=== PATIENT | male | born 1990 | race Caucasian/White ===

== ENCOUNTER 2020-04-22 16:57 | Emergency (ER) | payer BC, OTHER, SELFPAY ==
[2020-04-22 16:58] VITALS: BP 135/74; PULSE 111; RESP 22; TEMP 36.6; O2SAT 98; BMI 33.4
--- NOTE | 2020-04-22 17:17 | CT_ITS ---
PROCEDURE: CT ABDOMEN PELVIS WO CON CLINICAL INDICATION: L flank pain Left flank pain with nausea vomiting the COMPARISON: CT ABDPELW/O CT ABD PELVIS W/O CONTRAST from 09/23/2015 TECHNIQUE: Axial images obtained with sagittal and coronal reformats. All CT scans at the facility use one or more dose reduction, viz: automated exposure control, ma/kV adjustment per patient size (including targeted exams where dose is matched to indication, i.e. head), or iterative reconstruction technique. FINDINGS: LOWER THORAX: No acute finding ABDOMEN & PELVIS: The liver, spleen, adrenal glands, and pancreas have an unremarkable appearance. There are numerous small bilateral renal calculi more extensive on the left compared to the right. There is a 6 mm stone in the left ureteropelvic junction with mild left-sided hydronephrosis. No distal ureteral calculi are evident. Suspect mild left-sided medullary nephrocalcinosis. Scattered small nodes are present in the mesenteries and right lower quadrant. Unremarkable appearing appendix. No intestinal obstruction or free air. No evidence of diverticulitis. Tiny umbilical hernia containing fat. Sclerotic changes are present involving the femoral heads on both sides consistent with avascular necrosis which has developed since 09/23/2015. No cortical collapse IMPRESSION: 1. 6 mm stone in the left UPJ with mild left-sided hydronephrosis. 2. Bilateral nephrolithiasis. 3. Avascular necrosis of the femoral heads. Dictated by: David Negron MD 04/23/2020 08:33 David Negron MD in [place] 04/23/2020 08:33
[2020-04-22 17:28] VITALS: BP 119/59; PULSE 89; RESP 16; O2SAT 98
[2020-04-22 17:29] LABS: Microscopic, Urine URINE MICROSCOPIC (MICROSCOPIC)
[2020-04-22 17:30] LABS: Appearance,Urine CLOUDY (Clear); Blood, Urine 3+ (Negative); Color,Urine DK YELLOW (Yellow); Glucose,Urine (UA) Negative (Negative); Ketones,Urine Negative (Negative); Leukocyte Esterase,Urine Negative (Negative); Nitrate,Urine POSITIVE (Negative); PH,Urine 5.5 (5.0-8.5); Protein,Urine 2+ (Negative); Specific Gravity, Urine >= 1.030 (1.005-1.030); Urobilinogen,Urine 0.2 EU/dl (0.2)
--- NOTE | 2020-04-22 17:30 | PC.NURSE ---
pt going to CT
[2020-04-22 17:31] LABS: Alanine Aminotransferase 59 U/L (12-78); Albumin Level 4.8 g/dl (3.5-5.0); Albumin/Globulin Ratio 1.7 (1.1-1.8); Alkaline Phosphatase 95 U/L (38-126); Anion Gap 10.6 mEq/L (5-15); Aspartate Amino Transferase 44 U/L (17-59); Bilirubin,Total 0.7 mg/dl (0.2-1.3); Blood Urea Nitrogen 10 mg/dl (9-20); Carbon Dioxide 29 mmol/L (22.0-30.0); Chloride 105 mmol/L (98-107); Creatinine Clearance Estimated 140 mL/min (50-200); Estimated Glomerular Filt Rate 79 ml/min (>60); GFR (African American) 96 ML/MIN (>60); Globulin 2.9 g/dL (1.3-3.2); Glucose 128 mg/dl (74-100); Potassium 4.6 mmoL/L (3.5-5.1); Sodium 140 mmol/L (136-145); Total Protein,Serum 7.7 g/dl (6.3-8.2)
[2020-04-22 17:41] LABS: Bilirubin,Urine Negative (Negative)
[2020-04-22 17:51] LABS: Bacteria,Urine 2+ /lpf; Squamous Epithelial Cell,Urine Occasional #/hpf (0-5)
[2020-04-22 17:54] LABS: Basophils # 0.1 K/mm3 (0-0.2); Basophils % 0.6 % (0.1-2.0); Eosinophils # 0.3 K/mm3 (0.0-0.4); Eosinophils % 3.9 % (0.1-12.0); Hematocrit 48.1 % (42.0-52.0); Hemoglobin 15.7 g/dL (14.1-18.0); Lymphocytes # 2.7 K/mm3 (0.7-4.5); Lymphocytes % 32.4 % (10-50); Mean Corpuscular HGB Conc 32.7 g/dL (31.8-35.4); Mean Corpuscular Hemoglobin 29.7 pg (27.0-31.2); Mean Corpuscular Volume 90.7 fl (80-94); Mean Platelet Volume 8.1 fl (7.4-10.4); Monocytes # 0.5 K/mm3 (0.1-1.0); Monocytes % 6.2 % (1.7-9.3); Neutrophils # 4.7 K/mm3 (1.8-7.8); Neutrophils % 56.9 % (37.0-80.0); Platelet Count 234 K/mm3 (142-424); Red Cell Distribution Width 12.6 % (11.5-17.5); White Blood Count 8.3 K/mm3 (4.8-10.8)
--- NOTE | 2020-04-22 17:58 | HMH.EDGENADL ---
ED Disposition Clinical Impression: Obstructive uropathy UTI (urinary tract infection) Qualifiers: Urinary tract infection type: acute pyelonephritis Qualified Code(s): N10 - Acute pyelonephritis Disposition: Xfer Short-Term Hosp Condition on Discharge: Good Referrals: Nery Sams APRN [Primary Care Provider] - Forms: Transfer Record - ED Time of Disposition: 18:57 - Critical Care Critical Care Time: No Attestation: On 04/22/20, the high probability of a clinically significant, sudden or life threatening deterioration of the following system(s) required my full and direct attention, intervention and personal management. The time I documented below is in addition to time spent performing reported procedures but includes the following listed in this critical care notation. Medical Decision Making - Medical Records Medical records reviewed: Yes: I reviewed the patient's medical records. - Noel Inquiry Pt receiving controlled substance: No Noel was queried for this patient: Yes (No prescriptions on record) Vital Signs: 04/22/20 16:58 04/22/20 17:28 Temperature 98 F Temperature Source Oral Pulse Rate [Radial] 111 H 89 Respiratory Rate 22 16 Blood Pressure [Right Arm] 135/74 119/59 L Blood Pressure Mean [Right Arm] 94 79 Blood Pressure Position [Right Arm] Sitting Sitting 02 Sat by Pulse Oximetry 98 98 Oxygen Delivery Method Room Air Room Air - Lab Data Lab results reviewed: Yes: I reviewed the patient's lab results. Lab Results 04/22/20 17:05: WBC 8.3, RBC 5.30, Hgb 15.7, Hct 48.1, MCV 90.7, MCH 29.7, MCHC 32.7, RDW 12.6, Plt Count 234, MPV 8.1, Neut % (Auto) 56.9, Lymph % (Auto) 32.4, [place] % (Auto) 6.2, Eos % (Auto) 3.9, Baso % (Auto) 0.6, Neut # (Auto) 4.7, Lymph # (Auto) 2.7, Dolores # (Auto) 0.5, Eos # (Auto) 0.3, Baso # (Auto) 0.1 04/22/20 17:05: Sodium 140, Potassium 4.6, Chloride 105, Carbon Dioxide 29, Anion Gap 10.6, BUN 10, Creatinine 1.10, Estimated Creat Clear 140, Estimated GFR 79, Est GFR ( Amer) 96, Glucose 128 H, Calcium 10.0, Total Bilirubin 0.7, AST 44, ALT 59, Alkaline Phosphatase 95, Total Protein 7.7, Albumin 4.8, Globulin 2.9, Albumin/Globulin Ratio 1.7 04/22/20 17:20: Urine Color Dk yellow, Urine Appearance Cloudy, Urine pH 5.5, Ur Specific [place] >= 1.030, Urine Protein 2+, Urine Glucose (UA) Negative, Urine Ketones Negative, Urine Blood 3+, Urine Nitrate Positive, Urine Bilirubin Negative, Urine Urobilinogen 0.2, Ur Leukocyte Esterase Negative, Urine RBC 10-20, Urine WBC 3-5, Ur Squamous Epith Cells Occasional, Urine Bacteria 2+ Result diagrams: 04/22/20 17:05 04/22/20 17:05 Orders (Tests/Meds): ED MEDICATIONS Generic Name Dose Route Start Last Admin Trade Name Freq PRN Reason Stop Dose Admin Sodium Chloride 1,000 mls @ 999 mls/hr 04/22/20 17:15 04/22/20 17:17 Sod Chlor 0.9% 1000ml Bag IV 04/22/20 18:15 999 mls/hr .[id number] CARMELA Administration Tamsulosin HCl 0.4 mg 04/22/20 21:00 04/22/20 18:01 Tamsulosin 0.4mg Capsule PO 05/22/20 20:59 0.4 mg HS CARMELA Administration Discontinued Medications Generic Name Dose Route Start Last Admin Trade Name Freq PRN Reason Stop Dose Admin Hydromorphone HCl 1 mg 04/22/20 18:00 04/22/20 18:02 Hydromorphone 2mg/Ml Syringe IV 04/22/20 18:01 1 mg ONCE ONE Administration Ceftriaxone Sodium 1 gm/ 50 mls @ 100 mls/hr 04/22/20 17:59 04/22/20 18:01 Sodium Chloride IV 04/22/20 18:28 100 mls/hr ONCE ONE Administration Protocol Ketorolac Tromethamine 30 mg 04/22/20 17:15 04/22/20 17:17 Ketorolac 30mg/Ml Vial IV 04/22/20 17:16 30 mg ONCE ONE Administration Morphine Sulfate 4 mg 04/22/20 17:44 04/22/20 18:01 Morphine 4mg/Ml Syringe IV 04/22/20 17:45 Not Given ONCE ONE Ondansetron HCl 4 mg 04/22/20 17:15 04/22/20 17:17 Ondansetron 4mg/2ml Vial IV 04/22/20 17:16 4 mg ONCE ONE Administration ORDERS Category Date Time Status CT abdomen pelvis wo
--- NOTE | 2020-04-22 18:20 | PC.NURSE ---
Calling [facility] for transport
[2020-04-22 18:24] LABS: Adenovirus,PCR Not Detected (NotDetected); Bordetella Pertussis Not Detected (NotDetected); Chlamydophila Pneumoniae, PCR Not Detected (NotDetected); Coronavirus 19, PCR Not Detected (NotDetected); Coronavirus 229E Not Detected (NotDetected); Coronavirus NL63 Not Detected (NotDetected); Coronavirus OC43 Not Detected (NotDetected); Coronovirus HKU1,PCR Not Detected (NotDetected); Human Metapneumovirus Not Detected (NotDetected); Influenza A, PCR Not Detected (NotDetected); Influenza AH1, 2009 Not Detected (NotDetected); Influenza AH1, PCR Not Detected (NotDetected); Influenza AH3,PCR Not Detected (NotDetected); Influenza B, PCR Not Detected (NotDetected); Mycoplasma Pneumoniae, PCR Not Detected (NotDetected); Parainfluenza 1, PCR Not Detected (NotDetected); Parainfluenza 2, PCR Not Detected (NotDetected); Parainfluenza 3, PCR Not Detected (NotDetected); Parainfluenza 4, PCR Not Detected (NotDetected); Respiratory Syncytial Virus Not Detected (NotDetected); Rhinovirus/Enterovirus Not Detected (NotDetected)
--- NOTE | 2020-04-22 18:25 | PC.NURSE ---
Spoke with Patient logistics at [facility]. They are paging radiology and then will page out for a admit bed. Fax number is [phone].
--- NOTE | 2020-04-22 18:30 | PC.NURSE ---
Facesheet faxed to [facility].
--- NOTE | 2020-04-22 18:36 | PC.NURSE ---
Dr Barba speaking with urology at [facility] at this time.
--- NOTE | 2020-04-22 19:05 | PC.NURSE ---
bed assignment received, [id number].
[2020-04-22 19:10] VITALS: BP 119/59; PULSE 89; RESP 18; TEMP 36.7; O2SAT 98
== END 2020-04-22 19:15 | disposition short-term general hospital (02) ==
PROVIDERS: Emergency Provider Family Medicine; PCP Nurse Practitioner Family
DX: N13.9 Obstructive and reflux uropathy, unspecified (principal); N10 Acute pyelonephritis; K21.9 Gastro-esophageal reflux disease without esophagitis; F17.210 Nicotine dependence, cigarettes, uncomplicated; Z87.442 Personal history of urinary calculi
CPT/HCPCS: 74176; 80053; 81001; 85025; 87086; 87581; 87633; 87798; 96365; 96375; 99284; J2405

== ENCOUNTER 2020-10-15 20:44 | Emergency (ER) | payer BC, OTHER, SELFPAY ==
[2020-10-15 21:05] VITALS: BP 155/84; PULSE 84; RESP 18; TEMP 36.9; O2SAT 99; BMI 31.9
--- NOTE | 2020-10-15 21:38 | HMH.EDUTC ---
[facility] [place] Clinical Impression: Exposure to COVID-19 virus Disposition: Home, Self-Care Condition on Discharge: Good Instructions: DI for COVID-19 (Suspected or Confirmed ), Coronavirus Disease 2019, Preventing the Spread of Coronavirus Discharge Instructions Additional Instructions: *Monitor Temp, Over the counter Motrin or Tylenol as directed/as needed Tylenol every 4 hours and Motrin every 6 hours (as long as your family doctor has told you that you can take it) for fever or pain. and straight to ER if unable to lower temp less than 101.0 after medication given *Warm salt water gargles may help to soothe the throat *Throat Lozenges *Warm fluids like tea with honey may help to soothe the throat *Sleep elevated *Humidifier/Vaporizer Follow up IMMEDIATELY for new or worsening symptoms or no Noticeable improvement over the next 48-72 hours. 911 for difficulty breathing or swallowing You were tested for today for COVID19 your test result should be back in the next 24-48 hours, you may call to the [facility] to see if your test results are back in the next 48 hours [phone] [facility] hours are 9am-9pm You was given a handout with instructions for Self Quarantine and Self isolation for while you wait on test results and what to do if they are positive If you are positive the Health Dept will be contacting you also Make sure to take your Vitamins Vit. C Vit D and Zinc if you can take them Referrals: Nery Sams APRN [Primary Care Provider] - As needed Forms: Work/School Release Medical Decision Making - Noel Inquiry Pt receiving controlled substance: No Noel was queried for this patient: No Vital Signs: 10/15/20 21:05 Temperature 98.5 F Temperature Source Oral Pulse Rate [Right Brachial] 84 Respiratory Rate 18 Blood Pressure [Right Arm] 155/84 H Blood Pressure Mean [Right Arm] 107 Blood Pressure Source [Right Arm] Automatic Cuff Blood Pressure Position [Right Arm] Sitting 02 Sat by Pulse Oximetry 99 Oxygen Delivery Method Room Air Orders (Tests/Meds): ORDERS Category Date Time Status Covid-19 Nasal PCR ([facility]) Routine Lab 10/15/20 21:05 Received [facility] [place] HPI - General Stated complaint: covid test Time Seen by Provider: 10/15/20 21:38 Mode of Arrival: Ambulatory Source of Information: Patient Limitations: No Limitations Description of Symptoms (Recalled from Triage Doc. by RN): COVID TEST D/T EXPOSURE. C/O SORE THROAT AND NASAL DRAINAGE HEENT Symptoms (Recalled from RN notes): Yes Resp Symptoms (Recalled from RN notes): No Skin Symptoms (Recalled from RN notes): No MS Symptoms (Recalled from RN notes): No Functional Status (Recalled from RN notes): WNL - History of Present Illness Provider Complaint: Patient state that he was around co worker last week that tested positive for COVID States that he has had a little nasal drainage and scratchy throat and wanted to get tested for COVID Denies fever, or any other symptoms - Related Data Home Medications Medication Instructions Recorded Confirmed No Known Home Medications 05/31/18 06/02/20 Allergies Allergy/AdvReac Type Severity Reaction Status Date / Time amoxicillin [AMOXICILLIN] Allergy Unknown Verified 06/02/20 11:36 - Worker's Comp Is this a Worker's Comp case?: No [facility] History - Hepatitis A Screen Drug use history?: No High risk sexual behaviors?: No History of sexually transmitted infection?: No Currently employed?: No Childcare worker?: No Do you have indoor plumbing?: Yes Do you have electricity?: Yes Attestation statement:: This patient has been screened for Hepatitis A risk factors. I have reviewed the patient's past medical history: Yes 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: Reports:: Kidney Stones Denies:: Diabetes Mellitus Type 1, Diabetes Mellitus Type 2, Internal Pacemaker Other Surgeries: Yes: No Previous Surgery. No: Pacemaker Amputation: No Fractures: No - Social History Smoking Status: Current every day smoker
[2020-10-15 21:45] VITALS: BP 155/84; PULSE 84; RESP 18; TEMP 36.9; O2SAT 99
--- NOTE | 2020-10-16 14:10 | PC.NURSE ---
PT NOTIFIED OF POSITIVE COVID RESULTS
== END 2020-10-15 21:51 | disposition home or self-care (01) ==
PROVIDERS: Emergency Provider Nurse Practitioner; PCP Nurse Practitioner Family
DX: Z20.822 Contact with and (suspected) exposure to COVID-19 (principal); J02.9 Acute pharyngitis, unspecified
CPT/HCPCS: 99202; G0463; U0003

== ENCOUNTER 2021-06-18 08:45 | Emergency (ER) | payer BC, SELFPAY ==
[2021-06-18 08:45] VITALS: BP 128/78; PULSE 88; RESP 22; TEMP 36.6; O2SAT 98; BMI 33.4
--- NOTE | 2021-06-18 08:57 | HMH.EDGENADL ---
ED Disposition Clinical Impression: Ureteral calculus Disposition: Home, Self-Care Condition on Discharge: Good Instructions: DI for Kidney Stones Additional Instructions: Flomax as prescribed. Percocet as needed for pain. Zofran as needed for nausea. Additional instructions for KIDNEY STONE (URETERAL CALCULUS): See Dr. Matt as soon as possible for further evaluation. Drink plenty of fluids. Strain your urine and save any stones you catch. Return immediately if you develop a fever or have uncontrollable vomiting or uncontrollable pain. What is known about DIET and KIDNEY STONES: Most kidney stones contain calcium oxalate. The logical assumption would be that you should avoid calcium and oxalate in your diet. Contrary to what you would think, this is not necessarily the case. What is actually recommended for kidney stone prevention is a diet that contains MODERATELY HIGH AMOUNTS OF CALCIUM and is LOW IN SODIUM with PLENTY OF FLUIDS. Avoiding oxalate containing foods is recommended by some experts, but is controversial. Following the DASH (Dietary Approaches to Stop Hypertension) has been shown to significantly reduce the incidence of kidney stones. The DASH diet encourages you to reduce the sodium in your diet and eat a variety of foods rich in nutrients that help lower blood pressure, such as potassium, calcium and magnesium. Recommendations: Fluids: It is widely agreed upon that you need to drink plenty of fluids. A minimum would be 8-10 glasses (8 oz each) of fluid per day. Some experts recommend as much as 14-15 glasses a day. Sodium: The way to lower calcium in your urine is to lower your sodium intake. Try not to get more than 1500 mg a day. Calcium: Dietary calcium prevents absorption of oxalate. Make sure you get about 1000 to 1200 mg a day. You can get enough calcium from dairy products without taking supplements. Calcium should be ingested with meals, not in between meals. You need to get your calcium at mealtime to decrease the absorption of oxalate from other foods. Oxalate: Although some experts recommend avoiding oxalate in your diet, there have been no studies that prove this works. Eating more calcium will reduce oxalate absorption, and is probably all that is needed to reduce oxalate in your urine. Oxalate containing foods are generally good for you in all other respects - leafy greens, nuts, etc... So avoiding them unnecessarily might not be the best thing for your health. If you want to do something to avoid oxalate, avoid spinach and rhubarb - those are extremely high in oxalate (or at least eat a high calcium meal with these). ALSO: If you retrieve your stone by straining your urine, take it to your physician for stone analysis, which can help tailor your dietary recommendations. For further reading, check out the [facility] web page about the kidney stone diet: http://kidneystones.[employer]/cba-rkgvmj-yoeml-diet/ Additional instructions for CONTROLLED SUBSTANCES: You have been prescribed a medication that is a controlled substance. Controlled substances include pain medications known as opiates and sedative nerve medications known as benzodiazepines. Tramadol, fioricet, and gabapentin are also controlled substances. Some common opiates include: Codeine (such as Tylenol #3) Hydrocodone (Vicodin, Lortab, Lorcet, Williams) Oxycodone (Percocet, Percodan, Oxycodone, Oxy IR) Some common benzodiazepines include: Diazepam (Valium) Lorazepam (Ativan) Alprazolam (Xanax) Clonazepam (Klonopin) Oxazepam (Serax) All of these controlled substances are highly addictive and frequently abused. Misuse can and frequently does lead to addiction as well as overdose and . Medication should be stored in a locked cabinet or other secure storage unit. Do not store the medication in a motor vehicle. Short term supplies, 3 days or less, are prescribed be
--- NOTE | 2021-06-18 09:05 | CT_ITS ---
PROCEDURE INFORMATION: Exam: CT Abdomen And Pelvis Without Contrast Exam date and time: 06/18/2021 9:14 AM Age: 30 years old Clinical indication: Abdominal pain; Flank; Right lower quadrant (rlq); Additional info: R/O stone- right sided lower flank pain TECHNIQUE: Imaging protocol: Computed tomography of the abdomen and pelvis without contrast. Radiation optimization: All CT scans at this facility use at least one of these dose optimization techniques: automated exposure control; mA and/or kV adjustment per patient size (includes targeted exams where dose is matched to clinical indication); or iterative reconstruction. COMPARISON: CT ABDOMEN PELVIS WO CON 04/22/2020 5:32 PM FINDINGS: Liver: Normal. No mass. Gallbladder and bile ducts: Normal. No calcified stones. No ductal dilation. Pancreas: Normal. No ductal dilation. Spleen: Normal. No splenomegaly. Adrenal glands: Normal. No mass. Kidneys and ureters: Several non-obstructing left intrarenal calculi. Mild right perinephric hydroureter secondary to a 3 mm calculus located approximately 1 cm proximal to the right ureterovesical junction. Stomach and bowel: Unremarkable. No obstruction. No mucosal thickening. Appendix: The appendix is seen and is normal in appearance. Intraperitoneal space: Unremarkable. No free air. No significant fluid collection. Arteries: Unremarkable. No abdominal aortic aneurysm. Lymph nodes: Few calcified mediastinal nodes compatible with healed granulomatous disease. Several subcentimeter mesenteric lymph nodes. Urinary bladder: Unremarkable as visualized. Reproductive: Unremarkable as visualized. Bones/joints: Unremarkable. No acute fracture. Soft tissues: Unremarkable. IMPRESSION: 1. Several non-obstructing left intrarenal calculi. Mild right perinephric hydroureter secondary to a 3 mm calculus located approximately 1 cm proximal to the right ureterovesical junction. 2. Remainder of findings as described above.
[2021-06-18 09:15] LABS: Basophils # 0.1 K/mm3 (0-0.2); Basophils % 0.7 % (0.1-2.0); Eosinophils # 0.3 K/mm3 (0.0-0.4); Eosinophils % 4.4 % (0.1-12.0); Hematocrit 47.7 % (42.0-52.0); Hemoglobin 16.1 g/dL (14.1-18.0); Lymphocytes # 2.9 K/mm3 (0.7-4.5); Lymphocytes % 38.3 % (10-50); Mean Corpuscular HGB Conc 33.7 g/dL (31.8-35.4); Mean Corpuscular Hemoglobin 29.9 pg (27.0-31.2); Mean Corpuscular Volume 88.8 fl (80-94); Mean Platelet Volume 7.9 fl (7.4-10.4); Monocytes # 0.6 K/mm3 (0.1-1.0); Monocytes % 8.1 % (1.7-9.3); Neutrophils # 3.7 K/mm3 (1.8-7.8); Neutrophils % 48.4 % (37.0-80.0); Platelet Count 258 K/mm3 (142-424); Red Blood Count 5.37 M/mm3 (4.60-6.20); Red Cell Distribution Width 12.2 % (11.5-17.5); White Blood Count 7.5 K/mm3 (4.8-10.8)
[2021-06-18 09:17] LABS: Chloride 106 mmol/L (98-107); Potassium 3.7 mmoL/L (3.5-5.1); Sodium 140 mmol/L (136-145)
[2021-06-18 09:19] LABS: Alanine Aminotransferase 73 U/L (12-78); Aspartate Amino Transferase 49 U/L (17-59); Blood Urea Nitrogen 12 mg/dl (9-20); Creatinine Clearance Estimated 139 mL/min (50-200); Estimated Glomerular Filt Rate 79 ml/min (>60); GFR (African American) 95 ML/MIN (>60)
[2021-06-18 09:20] LABS: Albumin Level 4.4 g/dl (3.5-5.0); Albumin/Globulin Ratio 1.7 (1.1-1.8); Alkaline Phosphatase 95 U/L (38-126); Anion Gap 8.7 mEq/L (5-15); Bilirubin,Total 0.6 mg/dl (0.2-1.3); Calcium 9.2 mg/dl (8.4-10.2); Carbon Dioxide 29 mmol/L (22.0-30.0); Globulin 2.6 g/dL (1.3-3.2); Glucose 134 mg/dl (74-100)
[2021-06-18 09:34] VITALS: BP 120/75; PULSE 60; RESP 16; O2SAT 98
[2021-06-18 10:10] LABS: Microscopic, Urine URINE MICROSCOPIC (MICROSCOPIC)
[2021-06-18 10:13] LABS: Appearance,Urine CLEAR (Clear); Blood, Urine 3+ (Negative); Color,Urine AMBER (Yellow); Glucose,Urine (UA) Negative (Negative); Ketones,Urine Negative (Negative); Leukocyte Esterase,Urine Negative (Negative); Nitrate,Urine Negative (Negative); PH,Urine 6.5 (5.0-8.5); Protein,Urine 2+ (Negative); Specific Gravity, Urine >= 1.030 (1.005-1.030); Urobilinogen,Urine 0.2 EU/dl (0.2)
--- NOTE | 2021-06-18 10:19 | PC.NURSE ---
UPDATED ON PLAN OF CARE
[2021-06-18 10:22] LABS: Bilirubin,Urine 1+ (Negative)
[2021-06-18 10:51] LABS: Bacteria,Urine 1+ /lpf; RBC,Urine 20-50 #/hpf (0-3); Squamous Epithelial Cell,Urine Occasional #/hpf (0-5); WBC,Urine Occasional #/hpf (0-3)
[2021-06-18 11:01] VITALS: BP 116/73; PULSE 69; RESP 16; TEMP 36.6; O2SAT 98
== END 2021-06-18 11:02 | disposition home or self-care (01) ==
PROVIDERS: Emergency Provider Emergency Medicine; PCP Nurse Practitioner Family
DX: N20.1 Calculus of ureter (principal); F17.210 Nicotine dependence, cigarettes, uncomplicated
CPT/HCPCS: 74176; 80053; 81001; 85025; 96361; 96374; 96375; 96376; 99284; J2405

== ENCOUNTER 2021-06-20 06:42 | Emergency (ER) | payer BC, SELFPAY ==
[2021-06-20 06:44] VITALS: BP 145/88; PULSE 92; RESP 20; TEMP 36.9; O2SAT 98; BMI 31.4
[2021-06-20 06:48] VITALS: BP 143/79; PULSE 76; O2SAT 99
[2021-06-20 06:54] VITALS: BMI 31.5
--- NOTE | 2021-06-20 06:55 | CT_ITS ---
PROCEDURE INFORMATION: Exam: CT Abdomen And Pelvis Without Contrast Exam date and time: 06/20/2021 7:34 AM Age: 30 years old Clinical indication: Abdominal pain; Flank; Right; Additional info: Abdominal pain, known right kidney stone. TECHNIQUE: Imaging protocol: Computed tomography of the abdomen and pelvis without contrast. Radiation optimization: All CT scans at this facility use at least one of these dose optimization techniques: automated exposure control; mA and/or kV adjustment per patient size (includes targeted exams where dose is matched to clinical indication); or iterative reconstruction. COMPARISON: CT ABDOMEN PELVIS WO CON 06/18/2021 9:14 AM FINDINGS: Liver: Normal. No mass. Gallbladder and bile ducts: Normal. No calcified stones. No ductal dilation. Pancreas: Normal. No ductal dilation. Spleen: Calcified splenic granulomata. Adrenal glands: Normal. No mass. Kidneys and ureters: Few nonobstructing left intrarenal calculi. Mild right perinephric stranding and hydronephrosis secondary to a 2.5 mm calculus located at the right ureterovesical junction. Stomach and bowel: Unremarkable. No obstruction. No mucosal thickening. Appendix: The appendix is seen and is normal in appearance. Intraperitoneal space: Unremarkable. No free air. No significant fluid collection. Arteries: Unremarkable. No abdominal aortic aneurysm. Lymph nodes: Unremarkable. No enlarged lymph nodes. Urinary bladder: Unremarkable as visualized. Reproductive: Unremarkable as visualized. Bones/joints: Unremarkable. No acute fracture. Soft tissues: Unremarkable. IMPRESSION: Few nonobstructing left intrarenal calculi. Mild right perinephric stranding and hydronephrosis secondary to a 2.5 mm calculus located at the right ureterovesical junction.
--- NOTE | 2021-06-20 08:04 | HMH.EDABDPAI ---
ED Disposition Clinical Impression: Right ureteral stone Disposition: Home, Self-Care Condition on Discharge: Good Instructions: Kidney Stones -- Adult Additional Instructions: follow up with urology Referrals: Hossein Matt MD [Staff Physician] - - Critical Care Critical Care Time: No Attestation: On 06/20/21, the high probability of a clinically significant, sudden or life threatening deterioration of the following system(s) required my full and direct attention, intervention and personal management. The time I documented below is in addition to time spent performing reported procedures but includes the following listed in this critical care notation. Medical Decision Making - Medical Records Medical records reviewed: Yes: I reviewed the patient's medical records. - Noel Inquiry Pt receiving controlled substance: No Vital Signs: 06/20/21 06:44 06/20/21 06:48 06/20/21 09:14 Temperature 98.4 F Temperature Source Oral Pulse Rate 76 90 Pulse Rate [Right] 92 H Respiratory Rate 20 Blood Pressure 143/79 H 137/83 Blood Pressure [Right Arm] 145/88 H Blood Pressure Mean 102 99 Blood Pressure Mean [Right Arm] 107 02 Sat by Pulse Oximetry 98 99 99 Oxygen Delivery Method Room Air 06/20/21 10:38 Temperature 98.3 F Temperature Source Oral Pulse Rate 92 H Pulse Rate [Right] Respiratory Rate 20 Blood Pressure 128/74 Blood Pressure [Right Arm] Blood Pressure Mean Blood Pressure Mean [Right Arm] 02 Sat by Pulse Oximetry Oxygen Delivery Method Room Air - Lab Data Lab Results 06/20/21 07:18: Urine Color Yellow, Urine Appearance Clear, Urine pH 5.5, Ur Specific [place] >= 1.030, Urine Protein Negative, Urine Glucose (UA) Negative, Urine Ketones Negative, Urine Blood 3+, Urine Nitrate Negative, Urine Bilirubin Negative, Urine Urobilinogen 0.2, Ur Leukocyte Esterase Negative, Urine RBC 10-20, Urine WBC None, Ur Squamous Epith Cells Occasional, Urine Bacteria Trace 06/20/21 07:18: WBC 7.4, RBC 5.16, Hgb 15.9, Hct 47.4, MCV 91.9, MCH 30.7, MCHC 33.5, RDW 12.8, Plt Count 216, MPV 8.7, Neut % (Auto) 63.0, Lymph % (Auto) 26.4, [place] % (Auto) 7.0, Eos % (Auto) 1.7, Baso % (Auto) 1.8, Neut # (Auto) 4.6, Lymph # (Auto) 2.0, Harris # (Auto) 0.5, Eos # (Auto) 0.1, Baso # (Auto) 0.1, ESR 6 06/20/21 07:18: Sodium 141, Potassium 3.8, Chloride 106, Carbon Dioxide 28, Anion Gap 10.8, BUN 14, Creatinine 1.20, Estimated Creat Clear 127, Estimated GFR 71, Est GFR ( Amer) 86, Glucose 113 H, Calcium 9.7, Total Bilirubin 0.8, AST 42, ALT 61, Alkaline Phosphatase 92, C-Reactive Protein 1.1, Total Protein 7.1, Albumin 4.4, Globulin 2.7, Albumin/Globulin Ratio 1.6, Amylase 69, Lipase 96, Procalcitonin 0.044 Result diagrams: 06/20/21 07:18 06/20/21 07:18 Orders (Tests/Meds): ED MEDICATIONS Discontinued Medications Generic Name Dose Route Start Last Admin Trade Name Landen PRN Reason Stop Dose Admin Hydromorphone HCl 1 mg 06/20/21 07:19 06/20/21 07:19 Hydromorphone 4 Mg/Ml Syringe IV 06/20/21 07:20 1 mg ONCE ONE Administration Lactated Ringer's 500 mls @ 999 mls/hr 06/20/21 07:00 06/20/21 07:00 Lactated Ringer's 1000 Ml Bag IV 06/20/21 07:30 999 mls/hr .Q31M CARMELA Administration Ketorolac Tromethamine 30 mg 06/20/21 06:56 06/20/21 07:00 Ketorolac 30mg/Ml Vial IV 06/20/21 06:57 30 mg ONCE ONE Administration Metoclopramide HCl 10 mg 06/20/21 08:09 06/20/21 08:20 Metoclopramide Hcl 10mg/2ml Vial IVP 06/20/21 08:10 10 mg ONCE ONE Administration Morphine Sulfate 8 mg 06/20/21 08:55 06/20/21 08:58 Morphine 8mg/Ml Syringe IV 06/20/21 08:56 8 mg ONCE ONE Administration Ondansetron HCl 4 mg 06/20/21 06:56 06/20/21 07:00 Ondansetron 4mg/2ml Vial IV 06/20/21 06:57 4 mg ONCE ONE Administration Ondansetron HCl 4 mg 06/20/21 08:09 06/20/21 08:20 Ondansetron 4mg/2ml Vial IV 06/20/21 08:10 4 mg ONCE ONE Administration - Physici
[2021-06-20 08:21] LABS: Microscopic, Urine URINE MICROSCOPIC (MICROSCOPIC)
[2021-06-20 08:26] LABS: Appearance,Urine CLEAR (Clear); Bilirubin,Urine Negative (Negative); Blood, Urine 3+ (Negative); Color,Urine YELLOW (Yellow); Glucose,Urine (UA) Negative (Negative); Ketones,Urine Negative (Negative); Leukocyte Esterase,Urine Negative (Negative); Nitrate,Urine Negative (Negative); PH,Urine 5.5 (5.0-8.5); Protein,Urine Negative (Negative); Specific Gravity, Urine >= 1.030 (1.005-1.030); Urobilinogen,Urine 0.2 EU/dl (0.2)
[2021-06-20 08:27] LABS: Basophils # 0.1 K/mm3 (0-0.2); Basophils % 1.8 % (0.1-2.0); Chloride 106 mmol/L (98-107); Eosinophils # 0.1 K/mm3 (0.0-0.4); Eosinophils % 1.7 % (0.1-12.0); Hematocrit 47.4 % (42.0-52.0); Hemoglobin 15.9 g/dL (14.1-18.0); Lymphocytes % 26.4 % (10-50); Mean Corpuscular HGB Conc 33.5 g/dL (31.8-35.4); Mean Corpuscular Hemoglobin 30.7 pg (27.0-31.2); Mean Corpuscular Volume 91.9 fl (80-94); Mean Platelet Volume 8.7 fl (7.4-10.4); Monocytes # 0.5 K/mm3 (0.1-1.0); Neutrophils # 4.6 K/mm3 (1.8-7.8); Platelet Count 216 K/mm3 (142-424); Red Blood Count 5.16 M/mm3 (4.60-6.20); Red Cell Distribution Width 12.8 % (11.5-17.5); White Blood Count 7.4 K/mm3 (4.8-10.8)
[2021-06-20 08:28] LABS: Potassium 3.8 mmoL/L (3.5-5.1); Sodium 141 mmol/L (136-145)
[2021-06-20 08:30] LABS: Alanine Aminotransferase 61 U/L (12-78); Alkaline Phosphatase 92 U/L (38-126); Amylase 69 U/L (30-110); Anion Gap 10.8 mEq/L (5-15); Aspartate Amino Transferase 42 U/L (17-59); Bilirubin,Total 0.8 mg/dl (0.2-1.3); Blood Urea Nitrogen 14 mg/dl (9-20); Carbon Dioxide 28 mmol/L (22.0-30.0); Creatinine Clearance Estimated 127 mL/min (50-200); Estimated Glomerular Filt Rate 71 ml/min (>60); GFR (African American) 86 ML/MIN (>60)
[2021-06-20 08:31] LABS: Albumin Level 4.4 g/dl (3.5-5.0); Albumin/Globulin Ratio 1.6 (1.1-1.8); Calcium 9.7 mg/dl (8.4-10.2); Globulin 2.7 g/dL (1.3-3.2); Glucose 113 mg/dl (74-100); Lipase 96 U/L (23-300); Total Protein,Serum 7.1 g/dl (6.3-8.2)
[2021-06-20 08:36] LABS: C-Reactive Protein 1.1 mg/L (0-4)
[2021-06-20 08:44] LABS: Bacteria,Urine Trace /lpf; Squamous Epithelial Cell,Urine Occasional #/hpf (0-5)
[2021-06-20 08:51] LABS: Erythrocyte Sedimentation Rate 6 mm/hr (0-15)
[2021-06-20 09:08] LABS: Procalcitonin 0.044 ng/mL (0.0-2.0)
[2021-06-20 09:14] VITALS: BP 137/83; PULSE 90; O2SAT 99
[2021-06-20 10:38] VITALS: BP 128/74; PULSE 92; RESP 20; TEMP 36.8; O2SAT 97
== END 2021-06-20 10:38 | disposition home or self-care (01) ==
PROVIDERS: Emergency Provider Emergency Medicine; PCP Nurse Practitioner Family
DX: N20.1 Calculus of ureter (principal); F17.210 Nicotine dependence, cigarettes, uncomplicated; Z88.0 Allergy status to penicillin; Z88.1 Allergy status to other antibiotic agents; Z88.3 Allergy status to other anti-infective agents
CPT/HCPCS: 74176; 80053; 81001; 82150; 83690; 84145; 85025; 85651; 86140; 96374; 96375; 96376; 99285; J2405

== ENCOUNTER 2021-06-20 11:04 | Day surgery (SDC) | payer BC, SELFPAY ==
[2021-06-20] VITALS (12 sets, daily range): BP systolic 117–154; BP diastolic 63–82; PULSE 58–87; RESP 12–18; TEMP 36.2–43; O2SAT 92–99; BMI 33.4
--- NOTE | 2021-06-20 14:19 | HMH.ANESCL ---
[facility] Anesthesia Checklist - Patient Identification Patient Identification: Arm Band - Structural Data Admitted From: Home Planned Operative Procedure/s: Right Ureteroscopy with Stone Extraction Consent for Planned Operative Procedure(s) Verified: Yes Verified Documents: Surgical Consent, History and Physical - NPO Status Verified Time NPO: 00:00 - Additional verifications Anesthesia Reactions: No Hx Blood Transfusions: No Blood Transfusion Reaction: No - Airway Assessment C-Spine Mobility Assessed: Yes (mp2) TMJ Mobility Assessed: Yes Dentition: Good Dentition - Neurological Assessment Level of Consciousness: Awake, Alert - Anesthesia Plan Anesthesia Risk discussed: Yes Anesthesia Plan: Verified ASA Class: II Anesthesia Type: General [facility] History I have reviewed the patient's past medical history: Yes 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: Reports:: Kidney Stones Denies:: Cancer, Diabetes Mellitus Type 1, Diabetes Mellitus Type 2, Internal Pacemaker, MRSA, Seizures *Have you ever received a pneumonia vaccine?: No *Have you received a flu vaccine this season?: Yes Other 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: Denies: Blood Transfusion Reaction Anesthesia experience/problems:: nac Laterality Cases: Bilateral: Tonsillectomy Other Surgeries: Yes: Other. No: Pacemaker Amputation: No Fractures: No - *Social History Last grade of school completed: High school graduate Smoking Status: Current every day smoker Tobacco Type: cigarettes # Packs/Day (cigarettes): 1 Alcohol Intake: never Alcohol Intake Frequency:: holidays/special occasions only Substance Use Type: denies use *Occupational Status:: employed Housing: house Household Members: spouse *Travel in the last 8 weeks: None Family Hx:: No significant family history
--- NOTE | 2021-06-20 16:52 | XR_ITS ---
PROCEDURE INFORMATION: Exam: XR Abdomen Exam date and time: 06/20/2021 4:45 PM Age: 30 years old Clinical indication: Vomiting; Patient HX: This was an or case, stone extraction, fluoro time 0:58 TECHNIQUE: Imaging protocol: XR of the abdomen. Views: Frontal supine view of the abdomen. 1 View. COMPARISON: CT ABDOMEN PELVIS WO CON 06/20/2021 7:34 AM FINDINGS: Single image shows selection the right ureter with a guidewire. Fluoroscopy time is 0.58 minutes. IMPRESSION: Fluoroscopy time is 0.58 minutes.
--- NOTE | 2021-06-20 16:55 | P.PN_ITS ---
[facility] Anesthesia Record Part I Intake, IV Amount: 1,200 Estimated blood loss (mL): 0 Urine output (mL): 0 Blood Pressure: 117/63 SaO2: 92 Pulse Rate: 68 Respiratory Rate: 12 Temperature: 98.6 F Patient is:: Awake, Stable Stable to PACU at:: 16:50
--- NOTE | 2021-06-20 17:15 | SUR.PHASEI ---
1710 - Pt attempted to void, unable to @ this time. Currently resting comfortably, no needs voiced.
--- NOTE | 2021-06-20 17:17 | HMH.OPNOTE ---
Date of procedure: 06/20/21 Pre-op Diagnosis:: 3 mm right distal ureteral stone Post-op Diagnosis:: Right ureteral stone, right ureteral stenosis Procedure performed:: Right ureteroscopy, dilation of right ureteral stenosis, stone extraction Surgeon:: Hossein Matt MD STOPPER MAKER HELPER:: Juve Maldonado Anesthesia: LMA Estimated blood loss (mL): 0 Clinical Note:: 30-year-old white male with 2 episodes to the ER the last 3 days. He has a 3 mm stone in the distal ureter and we discussed treatment options. He presents for urologic management. Operative findings:: Small 3 mm stone was noted above stenotic ureter. The ureter was dilated and the stone removed without difficulty. Operative note:: Patient taken to the operating room after informed consent was obtained. Was placed on the operating table in the supine position and general anesthesia administered. Sequential compression devices were placed and preoperative antibiotics administered. He was then placed into the dorsal lithotomy position and prepped draped in the standard surgical fashion. 20 Bipin passed into the urethra and into the bladder without difficulty. The bladder was examined in a systematic fashion and was within normal limits. The ureteral orifices in their normal anatomic position. Guidewire was passed into the right ureteral orifice and there was some obstruction noted. A ureteral catheter was used to leak from the guidewire by the stone and the wire was passed into the right renal pelvis. The cystoscope removed and our semirigid ureteroscope was passed into the bladder and into the right ureter but there was a stenotic area about 3 cm upwards. The ureteroscope could not pass by the stenosis and it was removed and the 4 x 15 mm UroMax balloon dilator was passed over the guidewire and the stricture dilated to 12 shane for 3 minutes. The balloon then dilated and removed. The ureteroscope was passed back into the bladder and into the right ureter and by the stricture and up to the level of the stone. A 1.9 Serbian stone basket was used to basket the stone and it was removed without difficulty. No other stones were noted. The ureteroscope was removed and the cystoscope was replaced. There was copious amounts of urine from the right ureteral orifice and a stent was not deemed necessary. Urojet placed into the urethra. Patient tolerated procedure well. Stone sent off for analysis. Condition: stable Disposition: PACU Specimens:: Fragment Complications:: None
--- NOTE | 2021-06-20 18:10 | SUR.PHASEII ---
Pt feeling a little better. Continues with some nausea after Zofran. No further C/O pain.
[2021-06-21 07:46] VITALS: BP 142/74; PULSE 87; TEMP 36.1
--- NOTE | 2021-06-21 07:46 | HMH.ANESII ---
[facility] Anesthesia Record Part II Discharge Time: 17:20 Destination: Home PACU nurse assessment reviewed?: Yes Patient Condition:: Good Anesthesia Complications:: None Swallowing reflex intact?: Yes Cyanosis?: No Blood Pressure: 142/74 Pulse Rate: 87 Temperature: 97 F Mental Status: Alert & Oriented Pain level:: 0 Nausea and/or vomitting:: None Intake, IV Amount: 0
[2021-07-22 21:52] LABS: Ca oxalate dihydrate 60%; Calcium phosphate 5%
== END 2021-06-20 18:16 | disposition home or self-care (01) ==
LOC: OR 11:05
PROVIDERS: PCP Nurse Practitioner Family; Visit Provider Urology
PROC: (CPT 52352; principal; 2021-06-20 12:30)
DX: N20.1 Calculus of ureter (principal); N35.919 Unspecified urethral stricture, male, unspecified site; Z72.0 Tobacco use; Z88.1 Allergy status to other antibiotic agents; Z79.899 Other long term (current) drug therapy
CPT/HCPCS: 52281; 50945; 74018; 82370; 96374; J1956; J2405

== ENCOUNTER 2021-06-22 14:49 | Emergency (ER) | payer BC, SELFPAY ==
[2021-06-22 14:50] VITALS: BP 129/73; PULSE 63; RESP 16; TEMP 37.3; O2SAT 98; BMI 33.4
--- NOTE | 2021-06-22 14:57 | PC.NURSE ---
ED MD at
[2021-06-22 15:02] LABS: Microscopic, Urine URINE MICROSCOPIC (MICROSCOPIC)
--- NOTE | 2021-06-22 15:04 | CT_ITS ---
FINAL REPORT TECHNIQUE: Axial images through the abdomen and pelvis were performed without contrast. This study was performed with techniques to keep radiation doses as low as reasonably achievable, (ALARA). Individualized dose reduction techniques using automated exposure control or adjustment of mA and/or kV according to the patient's size were employed. CLINICAL HISTORY: rt flank pain h/o stones, surgery for stone removal a few days ago, pain worse today FINDINGS: Abdomen: The lung bases are clear. The liver parenchyma is homogeneous. The gallbladder is present. The spleen, pancreas, and adrenal glands are unremarkable. There are small bilateral nonobstructing renal stones, more numerous on the left. There is moderate right hydronephrosis and hydroureter. No ureteral stone is identified. Pelvis: The urinary bladder is unremarkable. No bladder stone is identified. The appendix is normal. There is no pelvic mass or inflammation. IMPRESSION: Moderate right hydronephrosis and hydroureter without definite obstructing stone. Findings favor a recently passed stone. Correlate with clinical scenario. Nonobstructing bilateral renal stones. Reviewed, Interpreted and Dictated by Allen Chappell MD Transcribed by Donnell Chase Authenticated by Allen Chappell MD on 06/22/2021 04:21:40 PM [facility]
--- NOTE | 2021-06-22 15:05 | HMH.EDGENADL ---
ED Disposition Clinical Impression: Hydronephrosis due to obstruction of ureter, Ureteral colic Disposition: Home, Self-Care Condition on Discharge: Good Instructions: Hydronephrosis -- Adult Additional Instructions: follow up Dr Matt as scheduled, return here for worse Prescriptions: Oxycodone HCl/Acetaminophen [Percocet 5/325mg tablet] 1 tab PO Q6H PRN #8 tab PRN Reason: Moderate To Severe Pain Transmission Status: Sent to [facility] Ondansetron [Zofran 4mg ODT] 4 mg PO TIDP PRN #10 tab PRN Reason: Nausea And Vomiting Transmission Status: Pending to [facility] Referrals: Nery Sams APRN [Primary Care Provider] - - Critical Care Critical Care Time: No Attestation: On 06/22/21, the high probability of a clinically significant, sudden or life threatening deterioration of the following system(s) required my full and direct attention, intervention and personal management. The time I documented below is in addition to time spent performing reported procedures but includes the following listed in this critical care notation. Medical Decision Making - Medical Records Medical records reviewed: Yes: I reviewed the patient's medical records. - Noel Inquiry Pt receiving controlled substance: Yes Noel was queried for this patient: Yes Risks and benefits of using a controlled substance: were discussed with pt by me Vital Signs: 06/22/21 14:50 06/22/21 15:55 Temperature 99.1 F Temperature Source Oral Pulse Rate 67 Pulse Rate [Radial] 63 Respiratory Rate 16 16 Blood Pressure 104/62 L Blood Pressure [Right Arm] 129/73 Blood Pressure Mean [Right Arm] 91 Blood Pressure Source Automatic Cuff Blood Pressure Position Sitting Blood Pressure Position [Right Arm] Sitting 02 Sat by Pulse Oximetry 98 94 L Oxygen Delivery Method Room Air Room Air - Lab Data Lab Results 06/22/21 14:55: Urine Color Yellow, Urine Appearance Clear, Urine pH 6.0, Ur Specific [place] >= 1.030, Urine Protein 2+, Urine Glucose (UA) Negative, Urine Ketones Negative, Urine Blood 3+, Urine Nitrate Negative, Urine Bilirubin Negative, Urine Urobilinogen 0.2, Ur Leukocyte Esterase Negative, Urine RBC 10-20, Urine WBC Occasional, Ur Squamous Epith Cells None, Urine Bacteria None 06/22/21 15:05: WBC 14.1 H D, RBC 4.82, Hgb 14.0 L, Hct 43.6, MCV 90.4, MCH 29.1, MCHC 32.2, RDW 12.3, Plt Count 214, MPV 8.0, Neut % (Auto) 77.8, Lymph % (Auto) 14.1, [place] % (Auto) 7.3, Eos % (Auto) 0.5, Baso % (Auto) 0.3, Neut # (Auto) 11.0 H, Lymph # (Auto) 2.0, [place] # (Auto) 1.0, Eos # (Auto) 0.1, Baso # (Auto) 0.0 06/22/21 15:05: Sodium 143, Potassium 4.2, Chloride 106, Carbon Dioxide 31 H, Anion Gap 10.2, BUN 22 H D, Creatinine 1.70 H D, Estimated Creat Clear 90, Estimated GFR 48 L, Est GFR ( Amer) 58 L D, Glucose 119 H, Calcium 9.6, Total Bilirubin 0.7, AST 32, ALT 48, Alkaline Phosphatase 74, Total Protein 6.5, Albumin 4.1, Globulin 2.4, Albumin/Globulin Ratio 1.7 Result diagrams: 06/22/21 15:05 06/22/21 15:05 Orders (Tests/Meds): ED MEDICATIONS Generic Name Dose Route Start Last Admin Trade Name Freq PRN Reason Stop Dose Admin Metoclopramide HCl 10 mg 06/22/21 16:30 Metoclopramide Hcl 10mg/2ml Vial IVP 07/22/21 16:29 ACHS CARMELA Discontinued Medications Generic Name Dose Route Start Last Admin Trade Name Freq PRN Reason Stop Dose Admin Hydromorphone HCl 1 mg 06/22/21 15:01 06/22/21 15:13 Hydromorphone 2mg/Ml Syringe IV 06/22/21 15:02 1 mg ONCE ONE Administration Lactated Ringer's 1,000 mls @ 999 mls/hr 06/22/21 15:30 06/22/21 15:17 Lactated Ringer's 1000 Ml Bag IV 06/22/21 16:30 999 mls/hr .Q1H1M CARMELA Administration Ketorolac Tromethamine 30 mg 06/22/21 15:01 06/22/21 15:14 Ketorolac 30mg/Ml Vial IV 06/22/21 15:02 30 mg ONCE ONE Administration Ondansetron HCl 8 mg 06/22/21 15:02 06/22/21 15:14 Ondansetron 4mg/2ml Vial IV 06/22/21 15:03 8 mg ONCE ONE
[2021-06-22 15:09] LABS: Appearance,Urine CLEAR (Clear); Bilirubin,Urine Negative (Negative); Blood, Urine 3+ (Negative); Color,Urine YELLOW (Yellow); Glucose,Urine (UA) Negative (Negative); Ketones,Urine Negative (Negative); Leukocyte Esterase,Urine Negative (Negative); Nitrate,Urine Negative (Negative); Protein,Urine 2+ (Negative); Specific Gravity, Urine >= 1.030 (1.005-1.030); Urobilinogen,Urine 0.2 EU/dl (0.2)
--- NOTE | 2021-06-22 15:10 | PC.NURSE ---
patient to CT with radio maintainer by wheelchair
[2021-06-22 15:19] LABS: Basophils % 0.3 % (0.1-2.0); Eosinophils # 0.1 K/mm3 (0.0-0.4); Eosinophils % 0.5 % (0.1-12.0); Hematocrit 43.6 % (42.0-52.0); Lymphocytes % 14.1 % (10-50); Mean Corpuscular HGB Conc 32.2 g/dL (31.8-35.4); Mean Corpuscular Hemoglobin 29.1 pg (27.0-31.2); Mean Corpuscular Volume 90.4 fl (80-94); Monocytes % 7.3 % (1.7-9.3); Neutrophils % 77.8 % (37.0-80.0); Platelet Count 214 K/mm3 (142-424); Red Blood Count 4.82 M/mm3 (4.60-6.20); Red Cell Distribution Width 12.3 % (11.5-17.5); White Blood Count 14.1 K/mm3 (4.8-10.8)
[2021-06-22 15:22] LABS: Chloride 106 mmol/L (98-107); Potassium 4.2 mmoL/L (3.5-5.1); Sodium 143 mmol/L (136-145)
[2021-06-22 15:25] LABS: Alanine Aminotransferase 48 U/L (12-78); Albumin Level 4.1 g/dl (3.5-5.0); Albumin/Globulin Ratio 1.7 (1.1-1.8); Alkaline Phosphatase 74 U/L (38-126); Anion Gap 10.2 mEq/L (5-15); Aspartate Amino Transferase 32 U/L (17-59); Bilirubin,Total 0.7 mg/dl (0.2-1.3); Blood Urea Nitrogen 22 mg/dl (9-20); Carbon Dioxide 31 mmol/L (22.0-30.0); Creatinine Clearance Estimated 90 mL/min (50-200); Estimated Glomerular Filt Rate 48 ml/min (>60); GFR (African American) 58 ML/MIN (>60); Globulin 2.4 g/dL (1.3-3.2); Total Protein,Serum 6.5 g/dl (6.3-8.2)
[2021-06-22 15:26] LABS: Calcium 9.6 mg/dl (8.4-10.2); Glucose 119 mg/dl (74-100)
[2021-06-22 15:27] LABS: WBC,Urine Occasional #/hpf (0-3)
[2021-06-22 15:55] VITALS: BP 104/62; PULSE 67; RESP 16; O2SAT 94
--- NOTE | 2021-06-22 16:18 | PC.NURSE ---
checked on pt at this time, pt ambulated to restroom, states feeling better. Family at BS will continue to monitor
--- NOTE | 2021-06-22 16:31 | PC.NURSE ---
Dr. Mishra on phone with Dr. Matt
[2021-06-22 17:01] VITALS: BP 163/100; PULSE 78; RESP 16; TEMP 36.6; O2SAT 98
== END 2021-06-22 17:12 | disposition home or self-care (01) ==
PROVIDERS: Emergency Provider Emergency Medicine; PCP Nurse Practitioner Family
DX: N13.2 Hydronephrosis with renal and ureteral calculous obstruction (principal); Z88.0 Allergy status to penicillin; Z88.1 Allergy status to other antibiotic agents; Z88.3 Allergy status to other anti-infective agents; F17.210 Nicotine dependence, cigarettes, uncomplicated
CPT/HCPCS: 74176; 80053; 81001; 85025; 96374; 96375; 96376; 99285; J2405

== ENCOUNTER 2021-08-07 17:46 | Emergency (ER) | payer BC, SELFPAY ==
--- NOTE | 2021-08-07 18:42 | HMH.EDUTC ---
[facility] Clinical Impression: Strep throat Disposition: Home, Self-Care Condition on Discharge: Good Instructions: Strep Throat, DI for Strep Throat Additional Instructions: Drink plenty of fluids. Take tylenol or ibuprofen for pain or fever. Take the medications as directed. Follow up with your regular doctor. GO TO THE ER FOR ANY WORSENING SYMPTOMS Prescriptions: clindamycin HCL [Cleocin HCl] 300 mg PO TID 10 Days #30 cap Transmission Status: Pending to [facility]/pharmacy #[id number] methylPREDNISolone [Medrol] 4 mg PO DIRECTED 6 Days #21 packet Transmission Status: Received by [facility]/pharmacy #[id number] Azithromycin [Z-Tae 250mg Tab*] 250 mg PO UD DOSE PK #6 tab Transmission Status: Received by [facility]/pharmacy #[id number] Referrals: Nery Sams APRN [Primary Care Provider] - Forms: Work/School Release Time of Disposition: 18:45 Medical Decision Making - Medical Records Medical records reviewed: No: I reviewed the patient's medical records. - Noel Inquiry Pt receiving controlled substance: No Noel was queried for this patient: No Vital Signs: 08/07/21 18:55 Temperature 99.2 F Temperature Source Oral Pulse Rate [Left Radial] 103 H Respiratory Rate 17 Blood Pressure [Right Arm] 119/77 Blood Pressure Mean [Right Arm] 91 02 Sat by Pulse Oximetry 98 Orders (Tests/Meds): ED MEDICATIONS Discontinued Medications Generic Name Dose Route Start Last Admin Trade Name Freq PRN Reason Stop Dose Admin Dexamethasone Sodium Phosphate 8 mg 08/07/21 18:48 Dexamethasone 4mg/Ml 1ml Vial IM 08/07/21 18:49 ONCE ONE [facility] HPI - General Stated complaint: dry throat and drainage Time Seen by Provider: 08/07/21 18:42 - History of Present Illness Provider Complaint: His and his 2 children all currently have strep throat. He started having a sore throat yesterday. Today, he came in because of the strep throat exposure and his throat is very sore. He denies any other complaints. - Related Data Home Medications Medication Instructions Recorded Confirmed Tamsulosin HCl [Flomax 0.4mg 0.4 mg PO HS 06/20/21 capsule] Previous Rx's Medication Instructions Recorded Ondansetron [Zofran 4mg ODT] 4 mg PO TIDP PRN #10 tab 06/18/21 Oxycodone HCl/Acetaminophen 1 tab PO Q6HP PRN #10 tab 06/18/21 [Percocet 5/325mg tablet] Ondansetron [Zofran 4mg ODT] 4 mg PO TIDP PRN #10 tab 06/22/21 Oxycodone HCl/Acetaminophen 1 tab PO Q6H PRN #8 tab 06/22/21 [Percocet 5/325mg tablet] Azithromycin [Z-Tae 250mg Tab*] 250 mg PO UD DOSE PK #6 tab 08/07/21 clindamycin HCL [Cleocin HCl] 300 mg PO TID 10 Days #30 cap 08/07/21 methylPREDNISolone [Medrol] 4 mg PO DIRECTED 6 Days #21 08/07/21 packet Allergies Allergy/AdvReac Type Severity Reaction Status Date / Time amoxicillin [AMOXICILLIN] Allergy Unknown Verified 06/02/20 11:36 [facility] History - Hepatitis A Screen Attestation statement:: This patient has been screened for Hepatitis A risk factors. I have reviewed the patient's past medical history: Yes 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: Reports:: Kidney Stones Denies:: Cancer, Diabetes Mellitus Type 1, Diabetes Mellitus Type 2, Internal Pacemaker, MRSA, Seizures Other 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: Denies: Blood Transfusion Reaction Laterality Cases: Bilateral: Tonsillectomy Other Surgeries: Yes: No Previous Surgery, Other. No: Pacemaker Amputation: No Fractures: No - Social History Smoking Status: Current every day smoker Tobacco Type: cigarettes # Packs/Day (cigarettes): 1 Alcohol Intake: never Alcohol Intake Frequency:: holidays/special occasions only Substance Use Type: denies use Occupational Status: employed Housing: house Household Members: spouse Family Hx:: No significant family history ROS Obtained: Yes All systems reviewed & no additional complaints - Constitutional Constitutional: Reports as per HPI - Eyes Eyes: Denies eye discharge - ENT Ears, Nose,
[2021-08-07 18:55] VITALS: BP 119/77; PULSE 103; RESP 17; TEMP 37.3; O2SAT 98; BMI 31.5
[2021-08-07 19:18] VITALS: BP 119/77; PULSE 103; RESP 17; TEMP 37.3
== END 2021-08-07 19:19 | disposition home or self-care (01) ==
PROVIDERS: Emergency Provider Nurse Practitioner Family; PCP Nurse Practitioner Family
DX: J02.0 Streptococcal pharyngitis (principal); Z88.1 Allergy status to other antibiotic agents; Z72.0 Tobacco use
CPT/HCPCS: 96372; 99283

== ENCOUNTER 2021-11-22 08:09 | Emergency (ER) | payer BC, SELFPAY ==
[2021-11-22 08:25] VITALS: BP 156/86; PULSE 104; RESP 16; TEMP 36.4; O2SAT 98; BMI 31.5
--- NOTE | 2021-11-22 08:25 | EXP.UTC ---
Discharge Plan Disposition Patient Disposition: Home, Self-Care Condition: Good Prescriptions Prescriptions: New azithromycin [Zithromax] 250 mg tablet 250 mg PO UD DOSE PK Qty: 6 0RF Rx Instructions: Take two (2) tablets today, then one (1) tablet days #2 thru #5 methylprednisolone 4 mg Tablets,Dose Pack 4 mg PO DIRECTED Qty: 21 0RF No Action oxycodone-acetaminophen 1 EACH tablet 1 tab PO Q6HP PRN (Reason: Moderate To Severe Pain) Qty: 10 0RF ondansetron 4 MG tablet,disintegrating 4 mg PO TIDP PRN (Reason: Nausea And Vomiting) Qty: 10 0RF tamsulosin 0.4 MG capsule 0.4 mg PO HS oxycodone-acetaminophen 1 EACH tablet 1 tab PO Q6H PRN (Reason: Moderate To Severe Pain) Qty: 8 0RF ondansetron 4 MG tablet,disintegrating 4 mg PO TIDP PRN (Reason: Nausea And Vomiting) Qty: 10 0RF azithromycin 250 MG tablet 250 mg PO UD DOSE PK Qty: 6 0RF Rx Instructions: Take two (2) tablets today, then one (1) tablet days #2 thru #5 methylprednisolone 4 MG tablets,dose pack 4 mg PO DIRECTED 6 Days Qty: 21 0RF clindamycin HCl 300 MG capsule 300 mg PO TID 10 Days Qty: 30 0RF Referrals Follow up/Referrals: Nery Sams APRN [Primary Care Provider] - See instructions Activity Restrictions/Add. Instructions Additional Instructions/Restrictions: Drink plenty of fluids. Take tylenol or ibuprofen for pain or fever. Take the medications as directed. Follow up with your regular doctor. GO TO THE ER FOR ANY WORSENING SYMPTOMS Don't start the oral steroids until tomorrow, since you had the shot here today. Clinical Impressions Clinical Impression: Sinusitis Instructions Patient Instructions: Sinusitis, DI for Sinusitis Discharge ED Provider: Robert Blackman [facility] General Stated complaint: drainage Time Seen by Provider: 11/22/21 08:25 History of Present Illness Provider Complaint: He states that for the past 2 days he has had worsening sinus congestion. He has some chest congestion but no significant cough or chest congestion. Related Data Home Medications Medication Instructions Recorded Confirmed tamsulosin 0.4 mg capsule 0.4 mg PO HS . 06/20/21 Previous Rx's Medication Instructions Recorded ondansetron 4 mg disintegrating 4 mg PO TIDP PRN Nausea And 06/18/21 tablet Vomiting #10 tabs oxycodone-acetaminophen 5 mg-325 1 tab PO Q6HP PRN Moderate To 06/18/21 mg tablet Severe Pain #10 tabs ondansetron 4 mg disintegrating 4 mg PO TIDP PRN Nausea And 06/22/21 tablet Vomiting #10 tabs oxycodone-acetaminophen 5 mg-325 1 tab PO Q6H PRN Moderate To 06/22/21 mg tablet Severe Pain #8 tabs azithromycin 250 mg tablet 250 mg PO UD DOSE PK #6 tabs 08/07/21 clindamycin HCl 300 mg capsule 300 mg PO TID 10 days #30 caps 08/07/21 methylprednisolone 4 mg tablets in 4 mg PO DIRECTED 6 days #21 08/07/21 a dose pack packets azithromycin 250 mg tablet 250 mg PO UD DOSE PK #6 tabs 11/22/21 (Zithromax) methylprednisolone 4 mg tablets in 4 mg PO DIRECTED #21 tabs 11/22/21 a dose pack Allergies Allergy/AdvReac Type Severity Reaction Status Date / Time amoxicillin [AMOXICILLIN] Allergy Unknown Verified 06/02/20 11:36 [facility] Social History Smoking Status: Current every day smoker tobacco type: cigarettes packs per day: 1 alcohol intake: never substance use type: denies use current occupational status: employed Travel in the last 8 weeks: None household members: spouse housing: house 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
[2021-11-22 08:57] VITALS: BP 156/86; PULSE 104; RESP 16; TEMP 36.4; O2SAT 98
== END 2021-11-22 09:05 | disposition home or self-care (01) ==
PROVIDERS: Emergency Provider Nurse Practitioner Family; PCP Nurse Practitioner Family
DX: J32.9 Chronic sinusitis, unspecified (principal)
CPT/HCPCS: 96372; 99212; G0463

== ENCOUNTER 2022-03-17 08:45 | Emergency (ER) | payer BC, SELFPAY ==
[2022-03-17 08:55] VITALS: BP 129/78; PULSE 77; RESP 20; TEMP 36.6; O2SAT 98; BMI 34.3
--- NOTE | 2022-03-17 09:13 | EXP.UTC ---
Discharge Plan Disposition Patient Disposition: Home, Self-Care Condition: Good Referrals Follow up/Referrals: Nery Sams APRN [Primary Care Provider] - See instructions Activity Restrictions/Add. Instructions Additional Instructions/Restrictions: No sign of a bacterial infection. Likely viral. Viruses can take 7-14 days to run their course. Nasal saline and bulb syringe or nose Holli to remove nasal drainage to help with nasal congestion. Hard to eat, drink, sleep with nasal congestion so important to keep this cleaned out. Monitor temp. Tylenol or Motrin as needed for pain or fever Encourage fluids, water, Gatorade, Powerade, Pedialyte if infant/toddler/child Warm salt water gargles Warm fluids Sore throat lozenges Sleep elevated Humidifier/vaporizer Follow-up immediately for new or worsening symptoms or no noticeable improvement over the next 48-72 hours. Clinical Impressions Clinical Impression: Allergic rhinitis Instructions Patient Instructions: Allergic Rhinitis Discharge ED [facility] [facility] [place] General Stated complaint: Drainage, scratchy throat Mode of Arrival: Ambulatory Source of Information: Patient Limitations: No Limitations Time Seen by Provider: 03/17/22 09:15 Description of Symptoms (Recalled from Triage Doc. by RN): PATIENT C/O SINUS DRAINAGE, COUGH, AND SORE THROAT (IN AM) THAT STARTED SATURDAY HEENT Symptoms (Recalled from RN notes): Yes Resp Symptoms (Recalled from RN notes): Yes Skin Symptoms (Recalled from RN notes): No MS Symptoms (Recalled from RN notes): No Functional Status (Recalled from RN notes): WNL History of Present Illness Provider Complaint: 31 yr old male presents for clear nasal drainage, sore throat and cough Related Data Allergies Allergy/AdvReac Type Severity Reaction Status Date / Time amoxicillin [AMOXICILLIN] Allergy Unknown Verified 06/02/20 11:36 Worker's Comp Is this a Worker's Comp case?: No [facility] Disclaimer: The information contained in this section may have been updated after the patient was seen, as this information can be updated by other users. 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 current occupational exposures/hazards: No caffeine: Yes ROS Obtained: Yes All systems reviewed & no additional complaints except as documented Constitutional Constitutional: Reports system reviewed and no additional complaints, except as documented and Reports as per HPI Eyes Eyes: Reports system reviewed and no additional complaints, except as documented ENT Ears, Nose, Mouth, and Throat: Reports system reviewed and no additional complaints, except as documented, Reports as per HPI, Reports nasal congestion, Reports nasal discharge, Reports post nasal drip and Reports sore throat Cardiovascular Cardiovascular: Reports system reviewed and no additional complaints, except as documented and Reports as per HPI Respiratory Respiratory: Reports system reviewed and no additional complaints, except as documented and Reports as per HPI Gastrointestinal Gastrointestingal: Reports system reviewed and no additional complaints, except as documented Musculoskeletal Musculoskeletal: Reports system reviewed and no additional complaints, except as documented Integumentary/Breasts Skin/Breast: Reports system reviewed and no additional complaints, except as documented Neurologic Neurologic: Reports system reviewed and no additional complaints, except as documented Endocrine Endocrine: Reports system reviewed and no addit
[2022-03-17 09:23] VITALS: BP 129/78; PULSE 77; RESP 20; TEMP 36.6; O2SAT 98
== END 2022-03-17 09:31 | disposition home or self-care (01) ==
PROVIDERS: Emergency Provider Nurse Practitioner Family; PCP Nurse Practitioner Family
DX: J30.9 Allergic rhinitis, unspecified (principal)
CPT/HCPCS: 96372; 99212; 99213; G0463

== ENCOUNTER 2022-08-23 11:15 | Emergency (ER) | payer BC, SELFPAY ==
--- NOTE | 2022-08-23 11:18 | PC.NURSE ---
pt unable to void at this time
[2022-08-23 11:19] VITALS: BP 147/95; PULSE 94; O2SAT 99
[2022-08-23 11:22] VITALS: BP 147/95; PULSE 93; RESP 16; TEMP 36.7; O2SAT 97; BMI 34.2
--- NOTE | 2022-08-23 11:22 | HMH.EDGENADL ---
Discharge Plan Disposition Patient Disposition: Home, Self-Care Referrals Follow up/Referrals: Nery Sams APRN [Primary Care Provider] - See instructions Activity Restrictions/Add. Instructions Additional Instructions/Restrictions: You currently have no pain at rest and there is no pain with any palpation deep in your abdomen. This is not consistent with an inflammatory condition such as appendicitis or any other surgical emergency. No masses or hernias were felt on physical exam and your symptoms are only exacerbated with movement. This is most consistent with an abdominal wall muscular strain. If you develop any ongoing or constant pain and/or any tenderness please return to the emergency department. You may take ibuprofen 800 mg 3 times a day as needed for pain. Clinical Impressions Clinical Impression: Abdominal wall strain Instructions Patient Instructions: DI for Acute Abdominal Pain Discharge ED Provider: Brant Morrow General Adult HPI General Chief complaint: Abdominal Pain Stated complaint: RT abd pain Time Seen by Provider: 08/23/22 11:22 History of Present Illness HPI narrative: Patient is a 31-year-old male presenting today with right lower quadrant abdominal pain. States that this began yesterday where he was walking around and pain was associated only with movement not present at rest. He had no hematuria he has a history of kidney stones and states this feels nothing like this in the past. He has no tenderness in his lower abdomen he has no pain at rest. No changes in urination or bowel movements. No fevers or chills no nausea and vomiting. Currently he has no symptoms 0 pain. Related Data Allergies Allergy/AdvReac Type Severity Reaction Status Date / Time amoxicillin [AMOXICILLIN] Allergy Unknown Verified 06/02/20 11:36 [facility] Disclaimer: The information contained in this section may have been updated after the patient was seen, as this information can be updated by other users. 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 current occupational exposures/hazards: No caffeine: Yes ROS Obtained: Yes All systems reviewed & no additional complaints except as documented Physical Exam General General appearance: alert Respiratory Respiratory exam: Present normal lung sounds bilaterally Cardiovascular Cardiovascular exam: Present regular rate Abdominal Exam Abdominal exam: Present soft; Absent distention, tenderness, guarding, rebound, mass or hernia Neurological Exam Neurological exam: Present alert and oriented X3 Medical Decision Making Noel Inquiry Pt receiving controlled substance: No Vital Signs: 08/23/22 11:22 Temperature 98.1 F Temperature Source Oral Pulse Rate [Right] 93 H Respiratory Rate 16 Blood Pressure [Right Arm] 147/95 H Blood Pressure Mean [Right Arm] 112 02 Sat by Pulse Oximetry 97 Oxygen Delivery Method Room Air Medical Decision Narrative: 31-year-old male presenting today with right lower quadrant pain which she states is only associated with movement. On my exam he has 0 tenderness even with deep palpation. This is not consistent with an inflammatory condition specifically appendicitis or any other acute surgical emergency. There are no masses felt this pain is located to the right of midline next to his umbilicus and unlikely that he would have hernia in this area anyway. No hernia felt on physical exam. Again he has no pain at rest and no tenderness on exam and pain is only exacerbated with movemen
[2022-08-23 11:30] VITALS: BP 138/81; PULSE 92; O2SAT 98
[2022-08-23 11:49] VITALS: BP 138/81; PULSE 92; RESP 16; TEMP 36.7; O2SAT 98
== END 2022-08-23 11:51 | disposition home or self-care (01) ==
PROVIDERS: Emergency Provider Student in an Organized Health Care Education/Training Program; PCP Nurse Practitioner Family
DX: S39.011A Strain of muscle, fascia and tendon of abdomen, initial encounter (principal); F17.210 Nicotine dependence, cigarettes, uncomplicated; R10.31 Right lower quadrant pain; X58.XXXA Exposure to other specified factors, initial encounter
CPT/HCPCS: 99282; 99283

== ENCOUNTER 2023-01-06 08:51 | Emergency (ER) | payer BC, SELFPAY ==
[2023-01-06 09:05] VITALS: BP 134/80; PULSE 77; RESP 21; TEMP 36.5; O2SAT 96; BMI 34.2
[2023-01-06 09:38] VITALS: BP 134/80; PULSE 77; RESP 21; TEMP 36.5; O2SAT 96
--- NOTE | 2023-01-06 09:44 | EXP.UTC ---
Discharge Plan Disposition Patient Disposition: Home, Self-Care Condition: Good Prescriptions Prescriptions: New azithromycin [Zithromax Z-Tae] 250 mg tablet See Rx Instructions .ROUTE .COMPLEX 5 Days Qty: 6 0RF Rx Instructions: For 250 mg dose pack: take 500 mg today (day 1), then 250 mg for 4 days (days 2-5) fluticasone propionate [Flonase Allergy Relief] 50 mcg/actuation spray,suspension 1 - 2 spray intranasal DAILY Qty: 16 0RF Rx Instructions: administer into each nostril daily Referrals Follow up/Referrals: Nery Sams APRN [Primary Care Provider] - See instructions Activity Restrictions/Add. Instructions Additional Instructions/Restrictions: *Monitor Temp, Over the counter Motrin or Tylenol as directed/as needed Tylenol every 4 hours and Motrin every 6 hours (as long as your family doctor has told you that you can take it) for fever or pain. and straight to ER if unable to lower temp less than 101.0 after medication given *Warm salt water gargles may help to soothe the throat *Throat Lozenges? *Warm fluids like tea with honey may help to soothe the throat? *Sleep elevated *Humidifier/Vaporizer Follow up IMMEDIATELY for new or worsening symptoms or no Noticeable improvement over the next 48-72 hours. 911 for difficulty breathing or swallowing Clinical Impressions Clinical Impression: Otitis media Qualifiers: Otitis media type: unspecified Laterality: left Qualified Code(s): H66.92 - Otitis media, unspecified, left ear Instructions Patient Instructions: Middle Ear Infection, Azithromycin Discharge ED Provider: Jenna Pedroza [facility] General Stated complaint: ear pressure, sinus drainage Mode of Arrival: Ambulatory Source of Information: Patient Limitations: No Limitations Time Seen by Provider: 01/06/23 09:45 Description of Symptoms (Recalled from Triage Doc. by RN): PATIENT C/O EAR PAIN AND SINUS DRAINAGE X 2 DAYS HEENT Symptoms (Recalled from RN notes): Yes Resp Symptoms (Recalled from RN notes): No Skin Symptoms (Recalled from RN notes): No MS Symptoms (Recalled from RN notes): No Functional Status (Recalled from RN notes): WNL History of Present Illness Provider Complaint: Patient states that he has been having bilateral ear pain and pressure and for the last 2 days he started having some sinus congestion and pressure States that he gets this a couple times a year and comes in and gets a shot and some antibiotics to clear it up Related Data Previous Rx's Medication Instructions Recorded azithromycin 250 mg tablet See Rx Instructions PO .COMPLEX 5 01/06/23 (Zithromax Z-Tae) days #6 tabs fluticasone propionate 50 1 - 2 spray intranasal DAILY #16 01/06/23 mcg/actuation nasal grams spray,suspension (Flonase Allergy Relief) Allergies Allergy/AdvReac Type Severity Reaction Status Date / Time amoxicillin [AMOXICILLIN] Allergy Unknown Verified 11/21/22 11:19 Worker's Comp Is this a Worker's Comp case?: No [facility] Disclaimer: The information contained in this section may have been updated after the patient was seen, as this information can be updated by other users. 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
== END 2023-01-06 10:20 | disposition home or self-care (01) ==
PROVIDERS: Emergency Provider Nurse Practitioner; PCP Nurse Practitioner Family
DX: H66.92 Otitis media, unspecified, left ear (principal); R09.81 Nasal congestion; H92.03 Otalgia, bilateral; F17.210 Nicotine dependence, cigarettes, uncomplicated
CPT/HCPCS: 96372; 99212; 99214; G0463

== ENCOUNTER 2023-04-12 04:35 | Emergency (ER) | payer BC, SELFPAY ==
[2023-04-12 04:36] VITALS: BP 141/93; PULSE 76; RESP 16; TEMP 36.6; O2SAT 99; BMI 33.4
--- NOTE | 2023-04-12 04:46 | CT_ITS ---
PROCEDURE INFORMATION: Exam: CT Abdomen And Pelvis Without Contrast Exam date and time: 04/12/2023 4:53 AM Age: 32 years old Clinical indication: Abdominal pain; Flank; Left; Additional info: L flank pain TECHNIQUE: Imaging protocol: Computed tomography of the abdomen and pelvis without contrast. Radiation optimization: All CT scans at this facility use at least one of these dose optimization techniques: automated exposure control; mA and/or kV adjustment per patient size (includes targeted exams where dose is matched to clinical indication); or iterative reconstruction. COMPARISON: CT ABDOMEN PELVIS WO CON 06/22/2021 3:08 PM FINDINGS: Liver: Normal. No mass. Gallbladder and bile ducts: Normal. No calcified stones. No ductal dilation. Pancreas: Normal. No ductal dilation. Spleen: Normal. No splenomegaly. Adrenal glands: Normal. No mass. Kidneys and ureters: 5 mm stone in the proximal left ureter. Mild hydronephrosis. Small nonobstructing renal collecting system stones. Stomach and bowel: Unremarkable. No obstruction. No mucosal thickening. Appendix: No evidence for appendicitis. Normal diameter. No inflammation. Intraperitoneal space: Unremarkable. No free air. No significant fluid collection. Vasculature: Unremarkable. No abdominal aortic aneurysm. Lymph nodes: Unremarkable. No enlarged lymph nodes. Urinary bladder: Unremarkable as visualized. Reproductive: Unremarkable as visualized. Bones/joints: Unremarkable. No acute fracture. Soft tissues: Unremarkable. IMPRESSION: 5 mm stone in the proximal left ureter with hydronephrosis.
[2023-04-12] MEDS: KETOROLAC 30MG/ML VIAL 15 MG IV (04:47)
[2023-04-12] MEDS: ACETAMINOPHEN 500MG TAB 1000 MG PO (04:47)
[2023-04-12] MEDS: ONDANSETRON 4MG/2ML VIAL 4 MG IV (04:47)
[2023-04-12] MEDS: LACTATED RINGERS 1000ML 1,000 ML 999 ML IV (04:47)
--- NOTE | 2023-04-12 04:48 | HMH.EDGENADL ---
Discharge Plan Disposition Patient Disposition: Home, Self-Care Condition: Good Prescriptions Prescriptions: New ketorolac 10 mg tablet 10 mg PO Q8H PRN (Reason: pain) Qty: 20 0RF oxycodone 5 mg tablet 5 mg PO Q8H PRN (Reason: pain) Qty: 12 0RF ondansetron 4 mg tablet,disintegrating 4 mg PO Q8H PRN (Reason: nausea and vomiting) 4 Days Qty: 12 0RF tamsulosin [Flomax] 0.4 mg capsule 0.4 mg PO DAILY Qty: 10 0RF No Action fluticasone propionate [Flonase Allergy Relief] 50 mcg/actuation spray,suspension 1 - 2 spray intranasal DAILY PRN Rx Instructions: administer into each nostril daily cefdinir 300 mg capsule 300 mg PO BID Qty: 20 0RF clotrimazole-betamethasone 1-0.05 % cream 1 applic topical BID 14 Days Qty: 45 0RF fluconazole 100 mg tablet 100 mg PO DAILY 14 Days Qty: 14 0RF Referrals Follow up/Referrals: Nery Sams APRN [Primary Care Provider] - See instructions Milind Bridges MD [Staff Physician] - See instructions Activity Restrictions/Add. Instructions Additional Instructions/Restrictions: You were evaluated in the emergency department today and diagnosed with a kidney stone on the left side. Please fiber picker your prescriptions for medications and take as prescribed. Do not drive or operate heavy machinery while taking narcotic pain medication. You may also take Tylenol every 4-6 hours as needed for pain. Make sure that you are staying hydrated. Return to the emergency department for new or worsening symptoms, such as fever greater than 100.4 ?F, significant worsening pain, or intractable nausea and vomiting. Clinical Impressions Clinical Impression: Ureterolithiasis Stand Alone Forms Stand Alone Forms: Work/School Release Instructions Patient Instructions: DI for Kidney Stones Discharge ED Provider: Alice Bravo General Adult HPI General Chief complaint: Abdominal Pain Stated complaint: abd pain Time Seen by Provider: 04/12/23 04:42 Mode of Arrival: Wheelchair Source of Information: Patient Limitations: No Limitations Description of Symptoms (Recalled from ER Triage Doc. by RN): ot c/o LLQ and lt flank pain that started @ 3:30 History of Present Illness HPI narrative: This patient is a 32-year-old male with history of kidney stone presenting to the emergency department for evaluation with concern for left flank pain that started at 330 this morning. It woke him up from sleep. It is severe and nothing seems to make it better or worse. He also complains of nausea, but has not vomited yet. No fevers, chills, or other concerns. No recent traumatic injuries. Related Data Home Medications Medication Instructions Recorded Confirmed fluticasone propionate 50 1 - 2 spray intranasal DAILY PRN 02/01/23 02/01/23 mcg/actuation nasal spray,suspension (Flonase Allergy Relief) Previous Rx's Medication Instructions Recorded cefdinir 300 mg capsule 300 mg PO BID #20 caps 02/01/23 clotrimazole-betamethasone 1 1 applic topical BID 14 days #45 02/01/23 %-0.05 % topical cream grams fluconazole 100 mg tablet 100 mg PO DAILY 14 days #14 tabs 02/01/23 ketorolac 10 mg tablet 10 mg PO Q8H PRN pain #20 tabs 04/12/23 ondansetron 4 mg disintegrating 4 mg PO Q8H PRN nausea and 04/12/23 tablet vomiting 4 days #12 tabs oxycodone 5 mg tablet 5 mg PO Q8H PRN pain #12 tabs 04/12/23 tamsulosin 0.4 mg capsule (Flomax) 0.4 mg PO DAILY #10 caps 04/12/23 Allergies Allergy/AdvReac Type Severity Reaction Status Date / Time amoxicillin [AMOXICILLIN] Allergy Unknown Verified 02/01/23 11:28 [facility] Disclaimer: The information contained in this section may have been updated after the patient was seen, as this information can be updated by other users. 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 current occupational exposures/hazards: No caffeine: Yes ROS Obtained: Yes All systems reviewed & no additional complaints except as documented Physical Exam General General appearance: alert and in no apparent distress Comment: Uncomfortable appearing Head Head exam: atraumatic and normocephalic Eye Eye exam: Present normal appearance, PERRL and EOMI ENT ENT exam: Present normal exam, normal oropharynx, mucous membranes moist and normal external ear exam Neck Neck exam: Present normal inspection, full ROM and trachea midline; Absent tenderness Chest Chest inspection: Present normal inspection and symmetric chest wall rise; Absent tenderness Respiratory Respiratory exam: Present normal lung sounds bilaterally; Absent respiratory distress, wheezes, stridor or accessory muscle use Cardiovascular Cardiovascular exam: Present regular rate and normal rhythm Abdominal Exam Abdominal exam: Present soft; Absent distention, tenderness or guarding Extremities Exam Extremities exam: Present normal inspection, full ROM and normal capillary refill; Absent tenderness or edema Back Exam Back exam: Present normal inspection and full ROM; Absent tenderness Neurological Exam Neurological exam: Present alert, oriented X3, CN II-XII intact and normal gait; Absent motor sensory deficit Psychiatric Psychiatric exam: Present normal affect and normal mood Skin Skin exam: Present warm and dry Medical Decision Making Medical Records Medical records reviewed: Yes I reviewed the patient's medical records. Noel Inquiry Pt receiving controlled substance: Yes Noel was queried for this patient: Yes Risks and benefits of using a controlled substance: were discussed with pt by me Vital Signs: 04/12/23 04:36 04/12/23 05:01 04/12/23 06:01 Temperature 97.8 F Temperature Source Oral Pulse Rate 76 75 Pulse Rate [Right] 76 Respiratory Rate 16 Blood Pressure 136/73 138/84 Blood Pressure [Right Arm] 141/93 H Blood Pressure Mean 94 93 Blood Pressure Mean [Right Arm] 109 02 Sat by Pulse Oximetry 99 96 100 Lab Data Lab results reviewed: Yes I reviewed the patient's lab results. Lab Results 04/12/23 04:44: WBC 8.0, RBC 5.35, Hgb 16.3, Hct 48.4, MCV 90.5, MCH 30.5, MCHC 33.7, RDW 12.7, Plt Count 191, MPV 8.3, Neut % (Auto) 54.9, Lymph % (Auto) 32.9, [place] % (Auto) 6.7, Eos % (Auto) 4.8, Baso % (Auto) 0.6, Neut # (Auto) 4.4, Lymph # (Auto) 2.6, [place] # (Auto) 0.5, Eos # (Auto) 0.4, Baso # (Auto) 0.1, Sodium 140, Potassium 3.9, Chloride 107, Carbon Dioxide 28, Anion Gap 8.9, BUN 12, Creatinine 1.10, Estimated Creat Clear 136, Estimated GFR 78, Est GFR ( Amer) 94, Glucose 117 H, Calcium 9.1, Total Bilirubin 0.7, AST 43, ALT 74, Alkaline Phosphatase 104, Total Protein 6.9, Albumin 4.3, Globulin 2.6, Albumin/Globulin Ratio 1.7 04/12/23 05:14: Urine Color Dark yellow, Urine Appearance Slightly cloudy, Urine pH 5.5, Ur Specific [place] >= 1.030, Urine Protein Trace, Urine Glucose (UA) Negative, Urine Ketones Negative, Urine Blood 3+, Urine Nitrate Negative, Urine Bilirubin Negative, Urine Urobilinogen 0.2, Ur Leukocyte Esterase Negative, Urine RBC 20-50, Urine WBC None, Ur Squamous Epith Cells Occasional, Urine Bacteria Trace, Urine Mucus 1+ 04/12/23 04:44 04/12/23 04:44 Orders (Tests/Meds): ED MEDICATIONS Discontinued Medications Generic Name Dose Route Start Last Admin Trade Name Freq PRN Reason Stop Dose Admin Acetaminophen 1,000 mg 04/12/23 04:45 04/12/23 04:47 Acetaminophen 500mg Tab PO 04/12/23 04:46 1,000 mg ONCE ONE Administration Lactated Ringer's 1,000 mls @ 999 mls/hr 04/12/23 04:45 04/12/23 04:47 Lactated Ringer's 1000 Ml Bag IV 04/12/23 05:45 999 mls/hr .Q1H1M ONE Administration Ketorolac Tromethamine 15 mg 04/12/23 04:45 04/12/23 04:47 Ketorolac 30mg/Ml Vial IV 04/12/23 04:46 15 mg ONCE ONE Administration Ondansetron HCl 4 mg 04/12/23 04:45 04/12/23 04:47 Ondansetron 4mg/2ml Vial IV 04/12/23 04:46 4 mg ONCE ONE Administration Oxycodone HCl 5 mg 04/12/23 05:31 04/12/23 05:38 Oxycodone 5mg Immediate Release Tablet PO 04/12/23 05:32 5 mg ONCE ONE Administration Tamsulosin HCl 0.4 mg 04/12/23 05:31 04/12/23 05:38 Tamsulosin 0.4mg Capsule PO 04/12/23 05:32 0.4 mg ONCE ONE Administration ORDERS Category Date Time Status CT abdomen pelvis wo con Stat Cat Scan 04/12/23 04:46 Taken Complete Blood Count Auto Diff Stat Lab 04/12/23 04:44 Completed Comprehensive Metabolic Panel Stat Lab 04/12/23 04:44 Completed Urinalysis and Microscopic Stat Lab 04/12/23 05:14 Completed Medical Decision Narrative: In summary, this patient is a 32-year-old male presenting to the Emergency Department for evaluation of left flank pain. Differential diagnoses considered include but are not limited to cystitis, pyelonephritis, ureterolithiasis, colitis. Ruling out the most morbid conditions drove assessment. On exam, the patient is uncomfortable appearing but is nontoxic-appearing. He is mildly hypertensive but otherwise vitals are reassuring. Workup included CBC, CMP, urinalysis, and CT abdomen and pelvis without IV contrast. He was given a bolus of IV fluids as well as IV Toradol, oral Tylenol, and IV Zofran for symptomatic improvement. I independently interpreted CT scan prior to the radiologist read and noted proximal left ureteral stone with hydronephrosis. Please see their read for final interpretation. Labs were obtained that demonstrated no significant THIEN, and the patient has no concerns for urinary tract infection based on urinalysis. On reassessment, patient had good improvement after administration of event as above. He was given oral oxycodone and oral Flomax for continued symptomatic management. Given that he does not have an THIEN and does not have an infected stone, I feel that he is appropriate for expectant management and outpatient follow-up with urology. He was given prescriptions for oxycodone, Flomax, Toradol, and Zofran and was given very strict return precautions should he develop any fevers, intractable nausea vomiting, significant worsening of pain, or other concerns. He was discharged in stable condition after all questions were answered. Critical Care Critical Care Time Critical Care Time: No
[2023-04-12 04:53] LABS: Basophils # 0.1 K/mm3 (0-0.2); Basophils % 0.6 % (0.1-2.0); Eosinophils # 0.4 K/mm3 (0.0-0.4); Eosinophils % 4.8 % (0.1-12.0); Hematocrit 48.4 % (42.0-52.0); Hemoglobin 16.3 g/dL (14.1-18.0); Lymphocytes # 2.6 K/mm3 (0.7-4.5); Lymphocytes % 32.9 % (10-50); Mean Corpuscular HGB Conc 33.7 g/dL (31.8-35.4); Mean Corpuscular Hemoglobin 30.5 pg (27.0-31.2); Mean Corpuscular Volume 90.5 fl (80-94); Mean Platelet Volume 8.3 fl (7.4-10.4); Monocytes # 0.5 K/mm3 (0.1-1.0); Monocytes % 6.7 % (1.7-9.3); Neutrophils # 4.4 K/mm3 (1.8-7.8); Neutrophils % 54.9 % (37.0-80.0); Platelet Count 191 K/mm3 (142-424); Red Blood Count 5.35 M/mm3 (4.60-6.20); Red Cell Distribution Width 12.7 % (11.5-17.5)
[2023-04-12 04:58] LABS: Alanine Aminotransferase 74 U/L (12-78); Albumin Level 4.3 g/dl (3.5-5.0); Albumin/Globulin Ratio 1.7 (1.1-1.8); Alkaline Phosphatase 104 U/L (38-126); Anion Gap 8.9 mEq/L (5-15); Aspartate Amino Transferase 43 U/L (17-59); Bilirubin,Total 0.7 mg/dl (0.2-1.3); Blood Urea Nitrogen 12 mg/dl (9-20); Calcium 9.1 mg/dl (8.4-10.2); Carbon Dioxide 28 mmol/L (22.0-30.0); Chloride 107 mmol/L (98-107); Creatinine Clearance Estimated 136 mL/min (50-200); Estimated Glomerular Filt Rate 78 ml/min (>60); GFR (African American) 94 ML/MIN (>60); Globulin 2.6 g/dL (1.3-3.2); Glucose 117 mg/dl (74-100); Potassium 3.9 mmoL/L (3.5-5.1); Sodium 140 mmol/L (136-145); Total Protein,Serum 6.9 g/dl (6.3-8.2)
[2023-04-12 05:01] VITALS: BP 136/73; PULSE 76; O2SAT 96
[2023-04-12 05:18] LABS: Microscopic, Urine URINE MICROSCOPIC (MICROSCOPIC)
[2023-04-12 05:20] LABS: Bilirubin,Urine Negative (Negative); Blood, Urine 3+ (Negative); Glucose,Urine (UA) Negative (Negative); Ketones,Urine Negative (Negative); Leukocyte Esterase,Urine Negative (Negative); Nitrate,Urine Negative (Negative); PH,Urine 5.5 (5.0-8.5); Protein,Urine TRACE (Negative); Specific Gravity, Urine >= 1.030 (1.005-1.030); Urobilinogen,Urine 0.2 EU/dl (0.2)
[2023-04-12] MEDS: OXYCODONE 5MG IMMEDIATE RELEASE TABLET 5 MG PO (05:38)
[2023-04-12] MEDS: TAMSULOSIN 0.4MG CAPSULE 0.400000000000000022 MG PO (05:38)
[2023-04-12 05:49] LABS: Appearance,Urine Slightly Cloudy (Clear); Color,Urine Dark Yellow (Yellow)
[2023-04-12 05:50] LABS: Bacteria,Urine Trace /lpf; Mucus,Urine 1+ /lpf; RBC,Urine 20-50 #/hpf (0-3); Squamous Epithelial Cell,Urine Occasional #/hpf (0-5)
[2023-04-12 06:01] VITALS: BP 138/84; PULSE 75; O2SAT 100
[2023-04-12 07:02] VITALS: BP 134/79; PULSE 72; RESP 16; TEMP 36.6; O2SAT 99
== END 2023-04-12 07:03 | disposition home or self-care (01) ==
PROVIDERS: Emergency Provider Emergency Medicine; PCP Nurse Practitioner Family
DX: N13.0 Hydronephrosis with ureteropelvic junction obstruction (principal); R10.32 Left lower quadrant pain; M54.59 Other low back pain; F17.210 Nicotine dependence, cigarettes, uncomplicated
CPT/HCPCS: 74176; 80053; 81001; 85025; 96361; 96374; 96375; 99285; J2405

== ENCOUNTER 2023-05-20 20:32 | Emergency (ER) | payer OTHER, SELFPAY ==
[2023-05-20 20:32] VITALS: BP 155/105; PULSE 96; RESP 20; TEMP 36.6; O2SAT 98; BMI 34.2
--- NOTE | 2023-05-20 20:34 | ECG_ITS ---
APPROVED REPORT Exam: Resting ECG HR:99 bpm ECG Measurements Heart Rate 99 AXES PA 145 P 58 QRSd 102 QRS 26 QT 342 T -4 QTc 398 Conclusion SINUS RHYTHM INCOMPLETE RIGHT BUNDLE BRANCH BLOCK [90+ ms QRS DURATION, TERMINAL R IN V1/V2, 40+ ms S IN I/aVL/V4/V5/V6] BORDERLINE ECG Electronically signed by : MICHAEL HUMPHREY, 05/21/2023 00:49:39
--- NOTE | 2023-05-20 20:42 | ED_ITS ---
<Statement entered by Luis M Angeles MD - 05/20/23 23:28> I was consulted by the POPPY, and we discussed the complexity of the problems being addressed. I approved the treatment and management plan for this patient's care in the emergency department, thus performing a substantive portion of the medical decision making. Luis M Angeles MD Discharge Plan Disposition Patient Disposition: Home, Self-Care Condition: Good Prescriptions Prescriptions: New pantoprazole [Protonix] 20 mg tablet,delayed release (DR/EC) 20 mg PO DAILY Qty: 10 0RF Referrals Follow up/Referrals: Nery Sams APRN [Primary Care Provider] - See instructions Robin Coon MD [Staff Physician] - See instructions Activity Restrictions/Add. Instructions Additional Instructions/Restrictions: At this time it was felt you are safe to be discharged home. If new or worsening symptoms please do not hesitate to return the emergency department. Please call and schedule an appointment with Dr. Coon as discussed for your palpitations and high blood pressure. Clinical Impressions Clinical Impression: Palpitations, Hypertension Discharge ED Provider: Luis M Angeles HPI <GRETA Muniz - Last Filed: 05/20/23 22:23> General Chief Complaint: Arrhythmia/Palpitations Stated Complaint: Chest Pain Time Seen by Provider: 05/20/23 20:42 History of Present Illness HPI narrative: Patient presents for a several day history of what he describes as feeling flushed that starts from the center of his chest spreading upward and then recedes making him feel like having butterflies . Patient denies actual pain or discomfort but is worried about sensation he is feeling. Patient denies diaphoresis shortness of breath hemoptysis hematochezia melena nausea vomiting diarrhea chills or fever. Related Data Previous Rx's Medication Instructions Recorded pantoprazole 20 mg tablet,delayed 20 mg PO DAILY #10 tabs 05/20/23 release (Protonix) Allergies Allergy/AdvReac Type Severity Reaction Status Date / Time amoxicillin [AMOXICILLIN] Allergy Unknown Verified 05/09/23 11:39 [facility] <GRETA Muniz - Last Filed: 05/20/23 22:23> [facility] Disclaimer: The information contained in this section may have been updated after the patient was seen, as this information can be updated by other users. 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 current occupational exposures/hazards: No caffeine: Yes <GRETA Muniz - Last Filed: 05/20/23 22:23> ROS Obtained: Yes Systems reviewed as appropriate & no additional complaints except as documented Physical Exam <GRETA Muniz - Last Filed: 05/20/23 22:23> General General appearance: alert and in no apparent distress Head Head exam: atraumatic and normal inspection Eye Eye exam: Present normal appearance and PERRL ENT ENT exam: Present normal exam, normal oropharynx and mucous membranes moist Neck Neck exam: Present normal inspection and full ROM; Absent lymphadenopathy Chest Chest inspection: Present normal inspection and symmetric chest wall rise Respiratory Respiratory exam: Present normal lung sounds bilaterally and respiratory distress Cardiovascular Cardiovascular exam: Present regular rate, normal rhythm and normal heart sounds Abdominal Exam Abdominal exam: Present soft and normal bowel sounds; Absent tenderness Extremities Exam Extremities exam: Present normal inspection and full ROM; Absent tenderness Back Exam Back exam: Present normal inspection and full ROM Neurological Exam Neurological exam: Present alert and oriented X3 Psychiatric Psychiatric exam: Present normal affect and normal mood Skin Skin exam: Present warm, dry and normal color HEART Score <GRETA Muniz - Last Filed: 05/20/23 22:23> HEART Score HEART Score assessment performed?: Yes History (anamnesis): Slightly suspicious ECG: Normal Age: <45 years Risk factors: 1-2 risk factors Troponin: </= normal limit HEART Score: 1 Critical Care <GRETA Muniz - Last Filed: 05/20/23 22:23> Critical Care Time Critical Care Time: No Medical Decision Making <GRETA Muniz - Last Filed: 05/20/23 22:23> Medical Records Medical records reviewed: Yes I reviewed the patient's medical records. Noel Inquiry Pt receiving controlled substance: No Vital Signs Vital Signs: 05/20/23 20:32 Temperature 98 F Temperature Source Oral Pulse Rate [Left] 96 H Respiratory Rate 20 Blood Pressure [Right Arm] 155/105 H Blood Pressure Mean [Right Arm] 121 02 Sat by Pulse Oximetry 98 Oxygen Delivery Method Room Air Lab Data Lab results reviewed: Yes I reviewed the patient's lab results. Labs: Lab Results 05/20/23 20:45: WBC 9.3, RBC 5.01, Hgb 15.5, Hct 47.4, MCV 94.7 H, MCH 30.9, MCHC 32.7, RDW 12.6, Plt Count 195, MPV 8.5, Neut % (Auto) 59.4, Lymph % (Auto) 24.3, [place] % (Auto) 9.0, Eos % (Auto) 4.3, Baso % (Auto) 3.0 H, Neut # (Auto) 5.5, Lymph # (Auto) 2.3, [place] # (Auto) 0.8, Eos # (Auto) 0.4, Baso # (Auto) 0.3 H, D-Dimer < 0.25, Sodium 140, Potassium 3.8, Chloride 106, Carbon Dioxide 27, Anion Gap 10.8, BUN 11, Creatinine 1.20, Estimated Creat Clear 128, Estimated GFR 70, Est GFR ( Amer) 85, Glucose 134 H, Calcium 9.4, Total Bilirubin 0.5, AST 48, ALT 80 H, Alkaline Phosphatase 90, Troponin I < 0.01, Total Protein 7.0, Albumin 4.3, Globulin 2.7, Albumin/Globulin Ratio 1.6 05/20/23 20:45 05/20/23 20:45 Response Orders (Tests/Meds): ED MEDICATIONS Discontinued Medications Generic Name Dose Route Start Last Admin Trade Name Freq PRN Reason Stop Dose Admin Acetaminophen 1,000 mg 05/20/23 20:42 05/20/23 20:57 Acetaminophen 1,000mg/100ml Vial IV 05/20/23 20:43 1,000 mg ONCE ONE Administration Belladonna Alkaloids 60 ml 05/20/23 20:42 05/20/23 20:55 Belladonna Alkaloids 60 Ml Ml PO 05/20/23 20:43 60 ml ONCE ONE Administration Ketorolac Tromethamine 15 mg 05/20/23 20:42 05/20/23 20:57 Ketorolac 30mg/Ml Vial IV 05/20/23 20:43 15 mg ONCE ONE Administration ORDERS Category Date Time Status Chest XR -- portable [XR chest portable] Stat Exams 05/20/23 20:43 Completed CBC w/Auto Diff [Complete Blood Count Auto Diff] Stat Lab 05/20/23 20:45 Completed CMP [Comprehensive Metabolic Panel] Stat Lab 05/20/23 20:45 Completed D-Dimer Stat Lab 05/20/23 20:45 Completed Trop I [Troponin I] Stat Lab 05/20/23 20:45 Completed Troponin I Q3H Lab 05/20/23 23:45 Ordered Troponin I Q3H Lab 05/21/23 02:45 Ordered MDM Narrative Medical Decision Narrative: In summary patient is a 2-year-old male who presents to the emergency department for evaluation of palpitations. Patient is newly normotensive but with a heart rate sustaining above 90 upon arrival, afebrile. Physical exam is unremarkable and nonfocal. Patient did have sinus tach on the monitor however twelve-lead EKG showed incomplete right bundle branch block. Differential diagnosis includes ACS versus arrhythmia versus GERD versus ulcer etc. Initial workup will be conducted with twelve-lead EKG plain film chest x-ray hematologic labs. Initial interventions include Toradol Tylenol GI cocktail. Initial workup reviewed by me shows that his hematologic labs are nonactionable including a negative troponin. My informally interpreted plain from chest x-ray shows no acute process.. Upon repeat evaluation patient had some resolution of his discomfort and sensation with the administration of GI cocktail.. Given this appropriate for discharge with prescription for a PPI and a referral to Dr. Coon. <Luis M Angeles MD - Last Filed: 05/20/23 22:03> Vital Signs Vital Signs: 05/20/23 20:32 Temperature 98 F Temperature Source Oral Pulse Rate [Left] 96 H Respiratory Rate 20 Blood Pressure [Right Arm] 155/105 H Blood Pressure Mean [Right Arm] 121 02 Sat by Pulse Oximetry 98 Oxygen Delivery Method Room Air Lab Data Labs: Lab Results 05/20/23 20:45: WBC 9.3, RBC 5.01, Hgb 15.5, Hct 47.4, MCV 94.7 H, MCH 30.9, MCHC 32.7, RDW 12.6, Plt Count 195, MPV 8.5, Neut % (Auto) 59.4, Lymph % (Auto) 24.3, [place] % (Auto) 9.0, Eos % (Auto) 4.3, Baso % (Auto) 3.0 H, Neut # (Auto) 5.5, Lymph # (Auto) 2.3, [place] # (Auto) 0.8, Eos # (Auto) 0.4, Baso # (Auto) 0.3 H, D-Dimer < 0.25, Sodium 140, Potassium 3.8, Chloride 106, Carbon Dioxide 27, Anion Gap 10.8, BUN 11, Creatinine 1.20, Estimated Creat Clear 128, Estimated GFR 70, Est GFR ( Amer) 85, Glucose 134 H, Calcium 9.4, Total Bilirubin 0.5, AST 48, ALT 80 H, Alkaline Phosphatase 90, Troponin I < 0.01, Total Protein 7.0, Albumin 4.3, Globulin 2.7, Albumin/Globulin Ratio 1.6 Response Orders (Tests/Meds): ED MEDICATIONS Discontinued Medications Generic Name Dose Route Start Last Admin Trade Name Freq PRN Reason Stop Dose Admin Acetaminophen 1,000 mg 05/20/23 20:42 05/20/23 20:57 Acetaminophen 1,000mg/100ml Vial IV 05/20/23 20:43 1,000 mg ONCE ONE Administration Belladonna Alkaloids 60 ml 05/20/23 20:42 05/20/23 20:55 Belladonna Alkaloids 60 Ml Ml PO 05/20/23 20:43 60 ml ONCE ONE Administration Ketorolac Tromethamine 15 mg 05/20/23 20:42 05/20/23 20:57 Ketorolac 30mg/Ml Vial IV 05/20/23 20:43 15 mg ONCE ONE Administration ORDERS Category Date Time Status Chest XR -- portable [XR chest portable] Stat Exams 05/20/23 20:43 Completed CBC w/Auto Diff [Complete Blood Count Auto Diff] Stat Lab 05/20/23 20:45 Completed CMP [Comprehensive Metabolic Panel] Stat Lab 05/20/23 20:45 Completed D-Dimer Stat Lab 05/20/23 20:45 Completed Trop I [Troponin I] Stat Lab 05/20/23 20:45 Completed Troponin I Q3H Lab 05/20/23 23:45 Ordered Troponin I Q3H Lab 05/21/23 02:45 Ordered ECG Data Tracing #1: ECG Narrative: Independently interpreted by me, rate is 99, rhythm is regular, axis is rightward deviated, no ST elevation in anatomical contiguous leads, QTc 398.
--- NOTE | 2023-05-20 20:43 | XR_ITS ---
PROCEDURE INFORMATION: Exam: XR Chest Exam date and time: 05/20/2023 8:46 PM Age: 32 years old Clinical indication: Patient HX: Smoker, patient states heart fluttering. ; Additional info: Chest pain TECHNIQUE: Imaging protocol: Radiologic exam of the chest. Views: 1 view. COMPARISON: CR CXR2V XR chest 2V 05/31/2018 10:44 PM FINDINGS: Lungs: Unremarkable. No consolidation. Pleural spaces: Unremarkable. No pleural effusion. No pneumothorax. Heart/Mediastinum: Unremarkable. No cardiomegaly. Bones/joints: Unremarkable. IMPRESSION: No acute findings.
[2023-05-20] MEDS: BELLADONNA ALKALOIDS 60 ML ML PO (20:55)
[2023-05-20] MEDS: KETOROLAC 30MG/ML VIAL 15 MG IV (20:57)
[2023-05-20] MEDS: ACETAMINOPHEN 1,000MG/100ML VIAL 1000 MG IV (20:57)
[2023-05-20 21:00] LABS: Basophils # 0.3 K/mm3 (0-0.2); Eosinophils # 0.4 K/mm3 (0.0-0.4); Eosinophils % 4.3 % (0.1-12.0); Hematocrit 47.4 % (42.0-52.0); Hemoglobin 15.5 g/dL (14.1-18.0); Lymphocytes # 2.3 K/mm3 (0.7-4.5); Lymphocytes % 24.3 % (10-50); Mean Corpuscular HGB Conc 32.7 g/dL (31.8-35.4); Mean Corpuscular Hemoglobin 30.9 pg (27.0-31.2); Mean Corpuscular Volume 94.7 fl (80-94); Mean Platelet Volume 8.5 fl (7.4-10.4); Monocytes # 0.8 K/mm3 (0.1-1.0); Neutrophils # 5.5 K/mm3 (1.8-7.8); Neutrophils % 59.4 % (37.0-80.0); Platelet Count 195 K/mm3 (142-424); Red Blood Count 5.01 M/mm3 (4.60-6.20); Red Cell Distribution Width 12.6 % (11.5-17.5); White Blood Count 9.3 K/mm3 (4.8-10.8)
[2023-05-20 21:06] LABS: Alanine Aminotransferase 80 U/L (12-78); Albumin Level 4.3 g/dl (3.5-5.0); Albumin/Globulin Ratio 1.6 (1.1-1.8); Alkaline Phosphatase 90 U/L (38-126); Anion Gap 10.8 mEq/L (5-15); Aspartate Amino Transferase 48 U/L (17-59); Bilirubin,Total 0.5 mg/dl (0.2-1.3); Blood Urea Nitrogen 11 mg/dl (9-20); Calcium 9.4 mg/dl (8.4-10.2); Carbon Dioxide 27 mmol/L (22.0-30.0); Chloride 106 mmol/L (98-107); Creatinine Clearance Estimated 128 mL/min (50-200); Estimated Glomerular Filt Rate 70 ml/min (>60); GFR (African American) 85 ML/MIN (>60); Globulin 2.7 g/dL (1.3-3.2); Glucose 134 mg/dl (74-100); Potassium 3.8 mmoL/L (3.5-5.1); Sodium 140 mmol/L (136-145)
[2023-05-20 21:18] LABS: Troponin I < 0.01 ng/ml (0.00-0.034)
[2023-05-20 22:07] LABS: D-Dimer < 0.25 ug/mL (0.0-0.5)
[2023-05-20 22:55] VITALS: BP 149/93; PULSE 89; RESP 18; TEMP 36.7; O2SAT 98
== END 2023-05-20 22:57 | disposition home or self-care (01) ==
PROVIDERS: Physician Assistant; Emergency Provider Emergency Medicine; PCP Nurse Practitioner Family
DX: R00.2 Palpitations (principal); I10 Essential (primary) hypertension; F17.210 Nicotine dependence, cigarettes, uncomplicated
CPT/HCPCS: 71045; 80053; 84484; 85025; 85378; 93005; 96374; 96375; 99284; J0131

== ENCOUNTER 2023-05-23 11:55 | Outpatient (CLI) | payer OTHER, SELFPAY | END 2023-05-23 23:59 | LOC: RT 11:55 | PROVIDERS: PCP Nurse Practitioner Family; Visit Provider Nurse Practitioner Family | DX: R00.2 Palpitations (principal) | CPT/HCPCS: 93225 ==

== ENCOUNTER 2023-10-18 11:02 | Outpatient (CLI) | payer OTHER, SELFPAY ==
[2023-10-18 18:43] LABS: Hemoglobin A1C 5.9 % (4.0-6.0)
== END 2023-10-18 23:59 | disposition home or self-care (01) ==
LOC: LAB.DROPOF 10-21 11:03
PROVIDERS: PCP Nurse Practitioner Family; Visit Provider Nurse Practitioner Family
DX: R63.5 Abnormal weight gain (principal); Z68.34 Body mass index [BMI] 34.0-34.9, adult; E53.8 Deficiency of other specified B group vitamins; E03.8 Other specified hypothyroidism
CPT/HCPCS: 83036

== ENCOUNTER 2023-12-01 22:01 | Emergency (ER) | payer OTHER, SELFPAY ==
[2023-12-01 22:03] VITALS: BP 182/90; PULSE 113; RESP 20; TEMP 36.7; O2SAT 98; BMI 33.4
[2023-12-01 22:09] VITALS: PULSE 113
--- NOTE | 2023-12-01 22:12 | ECG_ITS ---
APPROVED REPORT Exam: Resting ECG HR:110 bpm ECG Measurements Heart Rate 110 AXES AR 154 P 55 QRSd 98 QRS 23 QT 329 T 32 QTc 394 Conclusion SINUS TACHYCARDIA INDETERMINATE AXIS ABNORMAL RHYTHM ECG Electronically signed by : ABRAM CALVERT, 12/02/2023 06:49:59
--- NOTE | 2023-12-01 22:12 | XR_ITS ---
PROCEDURE INFORMATION: Exam: XR Chest Exam date and time: 12/01/2023 10:24 PM Age: 33 years old Clinical indication: Pain; Left-sided; Additional info: Chest pain TECHNIQUE: Imaging protocol: Radiologic exam of the chest. Views: 1 view. COMPARISON: CR XR CHEST PORTABLE 05/20/2023 8:46 PM FINDINGS: Lungs: Unremarkable. No consolidation. Pleural spaces: Unremarkable. No pleural effusion. No pneumothorax. Heart/Mediastinum: Unremarkable. No cardiomegaly. Bones/joints: Unremarkable. IMPRESSION: No acute findings.
--- NOTE | 2023-12-01 22:14 | [facility].EDCP ---
Discharge Plan Disposition Patient Disposition: Home, Self-Care Condition: Good Prescriptions Prescriptions: No Action methylprednisolone [Medrol (Tae)] 4 mg tablets,dose pack See Rx Instructions PO PER PKG DIR Qty: 21 0RF Rx Instructions: PO PER PKG DIR for 6 days cefdinir 300 mg capsule 300 mg PO BID 7 Days Qty: 14 0RF Zepbound 2.5 mg/0.5 mL pen injector 2.5 mg SQ WEEKLY 30 Days Qty: 2.5 0RF Rx Instructions: for 4 weeks triamcinolone acetonide 0.1 % cream 1 applic topical BID Qty: 30 1RF metoprolol succinate 25 mg tablet extended release 24 hr 25 mg PO DAILY Qty: 30 2RF Referrals Follow up/Referrals: Provider,MD Mehul [Primary Care Provider] - See instructions Emanuel Ann MD [Staff Physician] - See instructions (chest pain, workup in ER reassuring, history HTN, palpitations, SVT) Activity Restrictions/Add. Instructions Additional Instructions/Restrictions: You were evaluated in the ER and are appropriate for discharge at this time. Make an appointment with cardiology for reevaluation. Make an appointment with your primary care doctor for reevaluation in a few days. Return to the ER with new, worsening, or otherwise concerning symptoms. Clinical Impressions Clinical Impression: Chest pain Print Language Print Language: Thai Discharge ED Provider: Brant Morrow HPI <GRETA London - Last Filed: 12/01/23 23:31> General Chief Complaint: Chest Pain Stated Complaint: L chest Pain, HR 115 Time Seen by Provider: 12/01/23 22:04 Mode of Arrival: Ambulatory Source of Information: Patient Limitations: No Limitations Description of Symptoms (Recalled from ER Triage Doc. by RN): Pt reports to ED with cc of chest pain. Pt states the chest pain has been going on for a week. Pt states the pain comes and goes. Pt denies and arm, shoulder, back, and jaw pain. Pt states the pain is not radiating at this time but has radiated before but is hard to describe. Pt denies any cough and fever. History of Present Illness HPI narrative: Patient presents complaining of intermittent left-sided chest pain. She describes the pain as nagging, sharp, lasting approximately 1 minute each time. Denies pain currently, he did experience pain just prior to arrival. Denies any exacerbating or alleviating factors. Denies any cough or shortness of breath. Denies any fever or vomiting. She does have a history of hypertension and is a smoker. Denies any recent travel, surgery, history of PE or DVT, edema, hemoptysis, cancer or hormone therapy. Onset (ago): week(s) Duration: intermittent Pain location: left chest Quality: sharp Pain radiation: none Relieving factors: nothing Exacerbating factors: nothing Treatments prior to or on arrival for Cardiac Chest Pain: none Related Data Previous Rx's ?Medication ?Instructions ?Recorded metoprolol succinate 25 mg 25 mg PO DAILY #30 tabs 09/09/23 tablet,extended release 24 hr triamcinolone acetonide 0.1 % 1 applic topical BID #30 grams 09/24/23 topical cream cefdinir 300 mg capsule 300 mg PO BID 7 days #14 caps 10/18/23 methylprednisolone 4 mg tablets in See Rx Instructions PO PER PKG DIR 10/18/23 a dose pack (Medrol (Tae)) #21 tabs tirzepatide (weight loss) 2.5 2.5 mg (0.5 mL) SQ WEEKLY 30 days 10/20/23 mg/0.5 mL subcutaneous pen #2.5 mL injector (Zepbound) Allergies Allergy/AdvReac Type Severity Reaction Status Date / Time amoxicillin [AMOXICILLIN] Allergy Unknown Verified 10/18/23 13:07 [facility] <GRETA London - Last Filed: 12/01/23 23:31> [facility] Disclaimer: The information contained in this section may have been updated after the patient was seen, as this information can be updated by other users. 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 Otitis media ROM (right otitis media) Acute maxillary sinusitis Abdominal wall strain Allergic rhinitis Sinusitis Strep throat Exposure to COVID-19 virus UTI (urinary tract infection) Candidal dermatitis Witnessed episode of apnea [facility] when patient was coming out from a surgical procedure; had 02 on as well Loud snoring Surgical History History of tonsillectomy Social History Smoking Status: Current every day smoker tobacco type: cigarettes packs per day: 1 alcohol intake: never substance use type: denies use current occupational status: employed Travel in the last 8 weeks: None household members: spouse housing: house 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 current occupational exposures/hazards: No caffeine: Yes Other 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 Have you received the Flu Vaccine for this season: Yes Have you received the Pneumonia Vaccine: Yes <GRETA London - Last Filed: 12/01/23 23:31> ROS Obtained: Yes Systems reviewed as appropriate & no additional complaints except as documented Physical Exam <GRETA London - Last Filed: 12/01/23 23:31> General General appearance: alert and in no apparent distress Head Head exam: atraumatic and normocephalic Eye Eye exam: Present normal appearance and EOMI Chest Chest inspection: Present symmetric chest wall rise Respiratory Respiratory exam: Present normal lung sounds bilaterally; Absent wheezes or stridor Cardiovascular Cardiovascular exam: Present regular rate and normal rhythm; Absent systolic murmur Abdominal Exam Abdominal exam: Present soft; Absent distention or tenderness Neurological Exam Neurological exam: Present alert and oriented X3 Psychiatric Psychiatric exam: Present normal affect and normal mood Skin Skin exam: Present warm, dry and intact HEART Score <GRETA London - Last Filed: 12/01/23 23:31> HEART Score HEART Score assessment performed?: Yes History (anamnesis): Slightly suspicious ECG: Normal Age: <45 years Risk factors: 1-2 risk factors Troponin: </= normal limit HEART Score: 1 <Andrew Helms MD - Last Filed: 12/02/23 01:42> HEART Score HEART Score: 1 Critical Care <GRETA London - Last Filed: 12/01/23 23:31> Critical Care Time Critical Care Time: No Medical Decision Making <GRETA London Last Filed: 12/01/23 23:31> Medical Records MR Comment: In summary patient is a 33-year-old who presents the emergency department for evaluation of chest. Patient is slightly hypertensive, tachycardic upon arrival, afebrile. Unremarkable physical exam. Differential diagnosis includes PE, ACS, musculoskeletal pain. Initial workup will be conducted with labs including D-dimer given tachycardia, chest x-ray, EKG. medicine regarding management and they will meet the patient their service for continued valuation at this time? Etc.]. Initial workup reviewed by me mild hypokalemia, unremarkable EKG, CXR clear, negative D dimer. Upon repeat evaluation. Patient checked out to Dr. Helms pending repeat troponin. CXR interpreted by me NAD. Cohen Inquiry Pt receiving controlled substance: No Noel was queried for this patient: No Vital Signs Vital Signs: 12/01/23 22:03 12/01/23 22:09 12/01/23 22:30 Temperature 98.0 F Temperature Source Oral Pulse Rate 113 H 81 Pulse Rate [Left Radial] 113 H Respiratory Rate 20 12 Blood Pressure 156/90 H Blood Pressure [Right Arm] 182/90 H Blood Pressure Mean [Right Arm] 120 02 Sat by Pulse Oximetry 98 100 Oxygen Delivery Method Room Air 12/01/23 23:00 12/01/23 23:30 12/02/23 00:00 Temperature Temperature Source Pulse Rate 83 85 80 Pulse Rate [Left Radial] Respiratory Rate 14 11 L 18 Blood Pressure 170/93 H 162/86 H 151/83 H Blood Pressure [Right Arm] Blood Pressure Mean [Right Arm] 02 Sat by Pulse Oximetry 97 93 L 96 Oxygen Delivery Method 12/02/23 00:30 12/02/23 01:00 12/02/23 01:30 Temperature Temperature Source Pulse Rate 72 82 70 Pulse Rate [Left Radial] Respiratory Rate 15 14 13 Blood Pressure 140/91 H 145/88 H 136/83 Blood Pressure [Right Arm] Blood Pressure Mean [Right Arm] 02 Sat by Pulse Oximetry 97 96 95 Oxygen Delivery Method Lab Data Labs: Lab Results 12/01/23 22:00: WBC 8.5, RBC 5.96, Hgb 17.6, Hct 52.5 H, MCV 88.2, MCH 29.6, MCHC 33.5, RDW 13.3, Plt Count 202, MPV 8.4, Neut % (Auto) 57.2, Lymph % (Auto) 31.3, Vigo % (Auto) 7.4, Eos % (Auto) 2.8, Baso % (Auto) 1.3, Neut # (Auto) 4.9, Lymph # (Auto) 2.7, Vigo # (Auto) 0.6, Eos # (Auto) 0.2, Baso # (Auto) 0.1, D-Dimer < 0.25, Sodium 138, Potassium 3.3 L, Chloride 104, Carbon Dioxide 27, Anion Gap 10.3, BUN 13, Creatinine 1.10, Estimated Creat Clear 135, Estimated GFR 77, Est GFR ( Amer) 93, Glucose 157 H, Calcium 9.8, Total Bilirubin 0.7, AST 48, ALT 73, Alkaline Phosphatase 89, Troponin I < 0.01, Total Protein 8.1, Albumin 5.0, Globulin 3.1, Albumin/Globulin Ratio 1.6, HIV 1&2 Antibody Rapid Nonreactive 12/02/23 00:44: Troponin I < 0.01 12/01/23 22:00 12/01/23 22:00 Response Orders (Tests/Meds): ORDERS Category Date Time Status XR chest portable Stat Exams 12/01/23 22:12 Completed Complete Blood Count Auto Diff Stat Lab 12/01/23 22:00 Completed Comprehensive Metabolic Panel Stat Lab 12/01/23 22:00 Completed D-Dimer Stat Lab 12/01/23 22:00 Completed HIV (1&2) Antibody Rapid Stat Lab 12/01/23 22:00 Completed Hep C Ab with Reflex to RNA Stat Lab 12/01/23 22:00 Received Troponin I Q3H Lab 12/01/23 22:00 Completed Troponin I Q3H Lab 12/02/23 00:44 Completed Troponin I Q3H Lab 12/02/23 04:15 Ordered ECG Data Tracing #1: Attestation: I reviewed this ECG and interpreted as documented below: ECG Narrative: sinus tachycardia 110 <Andrew Helms MD - Last Filed: 12/02/23 01:42> Vital Signs Vital Signs: 12/01/23 22:03 12/01/23 22:09 12/01/23 22:30 Temperature 98.0 F Temperature Source Oral Pulse Rate 113 H 81 Pulse Rate [Left Radial] 113 H Respiratory Rate 20 12 Blood Pressure 156/90 H Blood Pressure [Right Arm] 182/90 H Blood Pressure Mean [Right Arm] 120 02 Sat by Pulse Oximetry 98 100 Oxygen Delivery Method Room Air 12/01/23 23:00 12/01/23 23:30 12/02/23 00:00 Temperature Temperature Source Pulse Rate 83 85 80 Pulse Rate [Left Radial] Respiratory Rate 14 11 L 18 Blood Pressure 170/93 H 162/86 H 151/83 H Blood Pressure [Right Arm] Blood Pressure Mean [Right Arm] 02 Sat by Pulse Oximetry 97 93 L 96 Oxygen Delivery Method 12/02/23 00:30 12/02/23 01:00 12/02/23 01:30 Temperature Temperature Source Pulse Rate 72 82 70 Pulse Rate [Left Radial] Respiratory Rate 15 14 13 Blood Pressure 140/91 H 145/88 H 136/83 Blood Pressure [Right Arm] Blood Pressure Mean [Right Arm] 02 Sat by Pulse Oximetry 97 96 95 Oxygen Delivery Method Lab Data Labs: Lab Results 12/01/23 22:00: WBC 8.5, RBC 5.96, Hgb 17.6, Hct 52.5 H, MCV 88.2, MCH 29.6, MCHC 33.5, RDW 13.3, Plt Count 202, MPV 8.4, Neut % (Auto) 57.2, Lymph % (Auto) 31.3, Vigo % (Auto) 7.4, Eos % (Auto) 2.8, Baso % (Auto) 1.3, Neut # (Auto) 4.9, Lymph # (Auto) 2.7, Vigo # (Auto) 0.6, Eos # (Auto) 0.2, Baso # (Auto) 0.1, D-Dimer < 0.25, Sodium 138, Potassium 3.3 L, Chloride 104, Carbon Dioxide 27, Anion Gap 10.3, BUN 13, Creatinine 1.10, Estimated Creat Clear 135, Estimated GFR 77, Est GFR ( Amer) 93, Glucose 157 H, Calcium 9.8, Total Bilirubin 0.7, AST 48, ALT 73, Alkaline Phosphatase 89, Troponin I < 0.01, Total Protein 8.1, Albumin 5.0, Globulin 3.1, Albumin/Globulin Ratio 1.6, HIV 1&2 Antibody Rapid Nonreactive 12/02/23 00:44: Troponin I < 0.01 Response Orders (Tests/Meds): ORDERS Category Date Time Status XR chest portable Stat Exams 12/01/23 22:12 Completed Complete Blood Count Auto Diff Stat Lab 12/01/23 22:00 Completed Comprehensive Metabolic Panel Stat Lab 12/01/23 22:00 Completed D-Dimer Stat Lab 12/01/23 22:00 Completed HIV (1&2) Antibody Rapid Stat Lab 12/01/23 22:00 Completed Hep C Ab with Reflex to RNA Stat Lab 12/01/23 22:00 Received Troponin I Q3H Lab 12/01/23 22:00 Completed Troponin I Q3H Lab 12/02/23 00:44 Completed Troponin I Q3H Lab 12/02/23 04:15 Ordered MDM Narrative Medical Decision Narrative: Helms: Upon my assumption of care patient is stable and resting comfortably. I agree with the assessment and plan from primary providers. I reviewed labs which are reassuring and nonactionable at this time, initial troponin undetectably low at less than 0.01, chest x-ray personally interpreted does not demonstrate acute injury thoracic abnormality. See radiology read for final interpretation. I personally interpreted ECG which demonstrated sinus tachycardia, rate 110, normal axis, normal ND and QTc, no STEMI. Patient was placed into ED observation at 0000 for serial troponins to rule out evolving OH and to preclude unnecessary admission. He remained on the cardiac cath lab manager and was frequently reassessed during his time in observation. He continued to be stable and asymptomatic. Repeat troponin also undetectably low at less than 0.01. At this time patient is appropriate for discharge since he continues to be asymptomatic and has overall reassuring workup. He was referred to cardiology for outpatient follow-up. Patient was given instructions on symptomatic management, follow up instructions, and return precautions for the emergency department. Patient indicated understanding and was discharged in stable condition.
[2023-12-01 22:30] VITALS: BP 156/90; PULSE 81; RESP 12; O2SAT 100
[2023-12-01 22:42] LABS: Alanine Aminotransferase 73 U/L (12-78); Albumin/Globulin Ratio 1.6 (1.1-1.8); Alkaline Phosphatase 89 U/L (38-126); Anion Gap 10.3 mEq/L (5-15); Aspartate Amino Transferase 48 U/L (17-59); Bilirubin,Total 0.7 mg/dl (0.2-1.3); Blood Urea Nitrogen 13 mg/dl (9-20); Calcium 9.8 mg/dl (8.4-10.2); Carbon Dioxide 27 mmol/L (22.0-30.0); Chloride 104 mmol/L (98-107); Creatinine Clearance Estimated 135 mL/min (50-200); Estimated Glomerular Filt Rate 77 ml/min (>60); GFR (African American) 93 ML/MIN (>60); Globulin 3.1 g/dL (1.3-3.2); Glucose 157 mg/dl (74-100); Potassium 3.3 mmoL/L (3.5-5.1); Sodium 138 mmol/L (136-145); Total Protein,Serum 8.1 g/dl (6.3-8.2)
[2023-12-01 22:47] LABS: D-Dimer < 0.25 ug/mL (0.0-0.5)
[2023-12-01 22:52] LABS: Basophils # 0.1 K/mm3 (0-0.2); Basophils % 1.3 % (0.1-2.0); Eosinophils # 0.2 K/mm3 (0.0-0.4); Eosinophils % 2.8 % (0.1-12.0); Hematocrit 52.5 % (42.0-52.0); Hemoglobin 17.6 g/dL (14.1-18.0); Lymphocytes # 2.7 K/mm3 (0.7-4.5); Lymphocytes % 31.3 % (10-50); Mean Corpuscular HGB Conc 33.5 g/dL (31.8-35.4); Mean Corpuscular Hemoglobin 29.6 pg (27.0-31.2); Mean Corpuscular Volume 88.2 fl (80-94); Mean Platelet Volume 8.4 fl (7.4-10.4); Monocytes # 0.6 K/mm3 (0.1-1.0); Monocytes % 7.4 % (1.7-9.3); Neutrophils # 4.9 K/mm3 (1.8-7.8); Neutrophils % 57.2 % (37.0-80.0); Platelet Count 202 K/mm3 (142-424); Red Blood Count 5.96 M/mm3 (4.60-6.20); Red Cell Distribution Width 13.3 % (11.5-17.5); White Blood Count 8.5 K/mm3 (4.8-10.8)
[2023-12-01 22:57] LABS: Troponin I < 0.01 ng/ml (0.00-0.034)
[2023-12-01 23:00] VITALS: BP 170/93; PULSE 83; RESP 14; O2SAT 97
[2023-12-01 23:30] VITALS: BP 162/86; PULSE 85; RESP 11; O2SAT 93
[2023-12-01 23:59] LABS: HIV (1&2) Antibody Rapid NONREACTIVE (NONREACTIVE)
[2023-12-02] VITALS: BP 151/83; PULSE 80; RESP 18; O2SAT 96
[2023-12-02 00:30] VITALS: BP 140/91; PULSE 72; RESP 15; O2SAT 97
[2023-12-02 01:00] VITALS: BP 145/88; PULSE 82; RESP 14; O2SAT 96
[2023-12-02 01:30] VITALS: BP 136/83; PULSE 70; RESP 13; O2SAT 95
[2023-12-02 01:31] LABS: Troponin I < 0.01 ng/ml (0.00-0.034)
[2023-12-02 01:39] VITALS: BP 136/83; PULSE 68; RESP 18; TEMP 36.7; O2SAT 98
[2023-12-03 05:15] LABS: HCV Ab Non Reactive (Non Reactive)
== END 2023-12-02 01:43 | disposition home or self-care (01) ==
PROVIDERS: Physician Assistant; Emergency Provider Student in an Organized Health Care Education/Training Program
DX: R07.9 Chest pain, unspecified (principal)
CPT/HCPCS: 71045; 80053; 84484; 85025; 85378; 86803; 87389; 93005; 99285

== ENCOUNTER 2024-02-20 05:17 | Emergency (ER) | payer OTHER, SELFPAY ==
[2024-02-20 05:18] VITALS: BP 145/93; PULSE 84; RESP 20; TEMP 36.6; O2SAT 100; BMI 33.4
--- NOTE | 2024-02-20 05:21 | CT_ITS ---
PROCEDURE INFORMATION: Exam: CT Abdomen And Pelvis With Contrast Exam date and time: 02/20/2024 6:13 AM Age: 33 years old Clinical indication: Abdominal pain; Localized; Right; Additional info: R side abd pain, HX kidney stone, has appendix TECHNIQUE: Imaging protocol: Computed tomography of the abdomen and pelvis with contrast. Radiation optimization: All CT scans at this facility use at least one of these dose optimization techniques: automated exposure control; mA and/or kV adjustment per patient size (includes targeted exams where dose is matched to clinical indication); or iterative reconstruction. Contrast material: ISOVUE; Contrast volume: 75 ml; Contrast route: IV; COMPARISON: CT ABDOMEN PELVIS WO CON 04/12/2023 4:53 AM FINDINGS: Liver: Normal. No mass. Gallbladder and biliary ducts: Normal. No calcified stones. No ductal dilation. Pancreas: Normal. No ductal dilation. Spleen: Normal. No splenomegaly. Adrenal glands: Normal. No mass. Kidneys and ureters: 3.9 millimeter mid RIGHT ureteral calculus causes dilatation of the RIGHT ureter, and RIGHT collecting system. (series 3, image 68) The RIGHT kidney is edematous and there is RIGHT perirenal stranding. Stomach and bowel: Diverticulosis of the rectosigmoid. No diverticulitis Appendix: Normal appendix Intraperitoneal space: Unremarkable. No free air. No significant fluid collection. Vasculature: Unremarkable. No abdominal aortic aneurysm. Lymph nodes: Unremarkable. No enlarged lymph nodes. Urinary bladder: Unremarkable as visualized. Reproductive: Unremarkable as visualized. Bones/joints: Serpiginous sclerosis and lucency in both femoral heads may represent early avascular necrosis. Soft tissues: Unremarkable. IMPRESSION: 1. 3.9 millimeter mid RIGHT ureteral calculus causes dilatation of the RIGHT ureter, and RIGHT collecting system. (series 3, image 68) The RIGHT kidney is edematous and there is RIGHT perirenal stranding. 2. Serpiginous sclerosis and lucency in both femoral heads may represent early avascular necrosis.
[2024-02-20 05:24] VITALS: PULSE 94; O2SAT 99
--- NOTE | 2024-02-20 05:26 | ED_ITS ---
Discharge Plan Disposition Patient Disposition: Home, Self-Care Referrals Follow up/Referrals: Provider,Referral, [Primary Care Provider] - See instructions Activity Restrictions/Add. Instructions Additional Instructions/Restrictions: Follow-up with your family doctor regarding this visit to the emergency department. You have 3 very, very small stones in your left kidney about 1 mm each. You have one 1 mm stone in your right kidney. If you have any other concerning signs or symptoms, return to the emergency department or your primary care provider for further evaluation. Take Tylenol 1000 mg every 6 hours (4 times daily) and ibuprofen 400 mg every 6 hours (4 times daily) as needed with food and water to prevent GI upset and kidney damage. Clinical Impressions Clinical Impression: Ureterolithiasis Instructions Patient Instructions: DI for Acute Abdominal Pain Print Language Print Language: [place]gu[place] Discharge ED Provider: Azeem Bradley General Adult HPI <Andrew Helms MD - Last Filed: 02/20/24 06:49> General Chief complaint: Abdominal Pain Stated complaint: pain r side Time Seen by Provider: 02/20/24 05:21 History of Present Illness HPI narrative: 33-year-old male with history of previous kidney stones, hypertension, reflux presents to the ER with concerns of right sided abdominal pain. Patient reports yesterday he had some mild nausea which seem to subside on its own. He went to bed but this morning approximately 45 minutes prior to arrival he woke up with sudden onset right sided abdominal pain. He describes nausea but no vomiting, no diarrhea or constipation, no dysuria or hematuria. He reports he has pain over in the right side of the abdomen, it is not in the back or front specifically, it does not radiate. He points to his right lateral flank when describing the pain. He states he has not taken anything for his symptoms. He denies fevers, chills, chest pain, difficulty breathing, no other associated symptoms. Related Data Allergies Allergy/AdvReac Type Severity Reaction Status Date / Time amoxicillin (AMOXICILLIN) Allergy Unknown Verified 12/06/23 15:30 PFS <Andrew Helms MD - Last Filed: 02/20/24 06:49> FOR[facility], LAT[facility] Disclaimer: The information contained in this section may have been updated after the patient was seen, as this information can be updated by other users. 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 Otitis media ROM (right otitis media) Acute maxillary sinusitis Abdominal wall strain Allergic rhinitis Sinusitis Strep throat Exposure to COVID-19 virus UTI (urinary tract infection) Candidal dermatitis Witnessed episode of apnea Doctors at [facility] when patient was coming out from a surgical procedure; had 02 on as well Loud snoring Surgical History History of tonsillectomy Social History Smoking Status: Current every day smoker tobacco type: cigarettes packs per day: 1 alcohol intake: never substance use type: denies use current occupational status: employed Travel in the last 8 weeks: None household members: spouse housing: house 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 current occupational exposures/hazards: No caffeine: Yes Have you lived/traveled outside [place] in past 30 days?: No Contact w/someone who lives/traveled outside US past 30 days?: No Exposure to someone with infectious disease in past 14 days?: No Do you have a fever (greater than 100.4 F or 38 C)?: No Have you tested positive for COVID-19: No Exposed to someone with COVID-19 in past 14 days?: No Do you have a sore throat?: No Do you have a cough?: No Do you have any weakness?: No Do you have any diarrhea?: No Are you experiencing any unusual bleeding?: No Do you have any muscle aches/pain?: No Do you have any abdominal pain?: Yes Are you experiencing loss of taste or smell?: No Other 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 Have you received the Flu Vaccine for this season: Yes Have you received the Pneumonia Vaccine: No <Andrew Helms MD - Last Filed: 02/20/24 06:49> ROS Obtained: Yes Systems reviewed as appropriate & no additional complaints except as documented Per HPI Physical Exam <Andrew Helms MD - Last Filed: 02/20/24 06:49> General General appearance: alert and in no apparent distress Head Head exam: atraumatic and normocephalic Eye Eye exam: Present PERRL and EOMI ENT ENT exam: Present mucous membranes moist Neck Neck exam: Present normal inspection and full ROM Chest Chest inspection: Present symmetric chest wall rise Respiratory Respiratory exam: Present normal lung sounds bilaterally; Absent respiratory distress, wheezes or stridor Cardiovascular Cardiovascular exam: Present regular rate and normal rhythm Abdominal Exam Abdominal exam: Present soft; Absent distention, tenderness, guarding or rebound Extremities Exam Extremities exam: Present full ROM Back Exam Back exam: Absent CVA tenderness (R) or CVA tenderness (L) Neurological Exam Neurological exam: Present alert and oriented X3; Absent motor sensory deficit Psychiatric Psychiatric exam: Present normal affect and normal mood Skin Skin exam: Present warm and dry Medical Decision Making <Andrew Helms MD - Last Filed: 02/20/24 06:49> Medical Records Medical records reviewed: Yes I reviewed the patient's medical records. Screening: Per USPSTF and CDC recommendations, given the prevalence of disease in our region, it is our hospital?s policy to screen for HIV and viral Hepatitis for all patients aged 18 and over and those with ongoing risk factors. MR Comment: Patient on my review of records, most recent kidney stone that was treated in our system was in March. At that time patient had a left proximal ureteral kidney stone. He was discharged for outpatient management. Noel Inquiry Pt receiving controlled substance: No Vital Signs: 02/20/24 05:18 02/20/24 05:24 02/20/24 05:30 Temperature 97.9 F Temperature Source Tympanic Pulse Rate 94 H 79 Pulse Rate [Apical] 84 Respiratory Rate 20 Blood Pressure 151/88 H Blood Pressure [Right Arm] 145/93 H Blood Pressure Mean [Right Arm] 110 02 Sat by Pulse Oximetry 100 99 100 Oxygen Delivery Method Room Air Room Air Room Air 02/20/24 06:00 02/20/24 06:30 02/20/24 07:37 Temperature 98.2 F Temperature Source Pulse Rate 85 95 H 80 Pulse Rate [Apical] Respiratory Rate 20 Blood Pressure 142/90 H 162/86 H 128/79 Blood Pressure [Right Arm] Blood Pressure Mean [Right Arm] 02 Sat by Pulse Oximetry 99 100 Oxygen Delivery Method Room Air Room Air Room Air Lab Data Lab Results 02/20/24 05:25: WBC 7.8, RBC 5.37, Hgb 16.0, Hct 47.7, MCV 88.8, MCH 29.8, MCHC 33.5, RDW 11.9, Plt Count 189, MPV 10.5 H, Neut % (Auto) 50.7, Lymph % (Auto) 34.5, [place] % (Auto) 9.7 H, Eos % (Auto) 4.0, Baso % (Auto) 0.6, Neut # (Auto) 3.9, Lymph # (Auto) 2.7, [place] # (Auto) 0.8, Eos # (Auto) 0.3, Baso # (Auto) 0.1, Sodium 139, Potassium 3.9, Chloride 105, Carbon Dioxide 29, Anion Gap 8.9, BUN 15, Creatinine 1.10, Estimated Creat Clear 135, Estimated GFR 77, Est GFR ( Amer) 93, Glucose 117 H, Calcium 9.3, Total Bilirubin 0.6, AST 42, ALT 62, Alkaline Phosphatase 91, Total Protein 6.8, Albumin 4.4, Globulin 2.4, Albumin/Globulin Ratio 1.8, Lipase 138 02/20/24 06:10: Lactate 1.1 02/20/24 05:25 02/20/24 05:25 Orders (Tests/Meds): ED MEDICATIONS Discontinued Medications Generic Name Dose Route Start Last Admin Trade Name Darellq PRN Reason Stop Dose Admin Lactated Ringer's 1,000 mls @ 999 mls/hr 02/20/24 05:25 02/20/24 05:31 Lactated Ringer's 1000 Ml Bag IV 02/20/24 06:25 999 mls/hr .Q1H1M ONE Administration Iopamidol 75 ml 02/20/24 06:25 02/20/24 06:26 Iopamidol-370 (76%);100ml Bottle IV 02/20/24 06:26 75 ml ONCE ONE Administration Ketorolac Tromethamine 30 mg 02/20/24 05:25 02/20/24 05:31 Ketorolac 30mg/Ml Vial IV 02/20/24 05:26 30 mg ONCE ONE Administration Ondansetron HCl 4 mg 02/20/24 05:25 02/20/24 05:31 Ondansetron 4mg/2ml Vial IV 02/20/24 05:26 4 mg ONCE ONE Administration Sodium Chloride 10 ml 02/20/24 06:25 02/20/24 06:26 Sodium Chloride 0.9% 10ml Syr (Rad Only) IV 02/20/24 06:26 10 ml ONCE ONE Administration Tamsulosin HCl 0.4 mg 02/20/24 06:47 02/20/24 06:51 Tamsulosin 0.4mg Capsule PO 02/20/24 06:48 0.4 mg ONCE ONE Administration ORDERS Category Date Time Status CT abdomen pelvis w con Stat Cat Scan 02/20/24 05:21 Completed CBC w/Auto Diff [Complete Blood Count Auto Diff] Stat Lab 02/20/24 05:25 Completed CMP [Comprehensive Metabolic Panel] Stat Lab 02/20/24 05:25 Completed Lactic Acid Stat Lab 02/20/24 06:10 Completed Lipase Stat Lab 02/20/24 05:25 Completed Urinalysis and Microscopic Stat Lab 02/20/24 07:00 Received Medical Decision Narrative: In summary, this 33-year-old male with comorbidities described in HPI presents to the emergency department today with right side abdominal pain with nausea but no vomiting. On initial evaluation patient is hemodynamically stable, afebrile, exam is benign, patient has no abdominal tenderness, no rebound or guarding, no CVA tenderness. He reports he is still having pain in the right side but has no abnormalities appreciated on exam. Differential diagnosis includes but is not limited to viral syndrome, mesenteric adenitis, I considered appendicitis, ureterolithiasis, hydronephrosis, kidney dysfunction, dehydration, electrolyte abnormality, muscle spasm. Based on these concerns, I ordered serum labs, urine studies, CT imaging. Patient received IV fluids, Toradol, Zofran for treatment. Labs personally reviewed demonstrate no leukocytosis or anemia, platelets normal, CMP nonactionable, no findings of kidney dysfunction, lipase normal at 138, lactic normal at 1.1. UA pending CT abdomen pelvis personally interpreted demonstrates very small stone in the mid right ureter with small upstream hydronephrosis on my personal interpretation. Radiology read pending. Based on my interpretation of the CT, I ordered Flomax for treatment of the patient. Patient handed off to Dr. Bradley for continued management and disposition pending urinalysis and CT results. <Azeem Bradley MD - Last Filed: 02/20/24 08:16> Vital Signs: 02/20/24 05:18 02/20/24 05:24 02/20/24 05:30 Temperature 97.9 F Temperature Source Tympanic Pulse Rate 94 H 79 Pulse Rate [Apical] 84 Respiratory Rate 20 Blood Pressure 151/88 H Blood Pressure [Right Arm] 145/93 H Blood Pressure Mean [Right Arm] 110 02 Sat by Pulse Oximetry 100 99 100 Oxygen Delivery Method Room Air Room Air Room Air 02/20/24 06:00 02/20/24 06:30 02/20/24 07:37 Temperature 98.2 F Temperature Source Pulse Rate 85 95 H 80 Pulse Rate [Apical] Respiratory Rate 20 Blood Pressure 142/90 H 162/86 H 128/79 Blood Pressure [Right Arm] Blood Pressure Mean [Right Arm] 02 Sat by Pulse Oximetry 99 100 Oxygen Delivery Method Room Air Room Air Room Air Lab Data Lab Results 02/20/24 05:25: WBC 7.8, RBC 5.37, Hgb 16.0, Hct 47.7, MCV 88.8, MCH 29.8, MCHC 33.5, RDW 11.9, Plt Count 189, MPV 10.5 H, Neut % (Auto) 50.7, Lymph % (Auto) 34.5, [place] % (Auto) 9.7 H, Eos % (Auto) 4.0, Baso % (Auto) 0.6, Neut # (Auto) 3.9, Lymph # (Auto) 2.7, [place] # (Auto) 0.8, Eos # (Auto) 0.3, Baso # (Auto) 0.1, Sodium 139, Potassium 3.9, Chloride 105, Carbon Dioxide 29, Anion Gap 8.9, BUN 15, Creatinine 1.10, Estimated Creat Clear 135, Estimated GFR 77, Est GFR ( Amer) 93, Glucose 117 H, Calcium 9.3, Total Bilirubin 0.6, AST 42, ALT 62, Alkaline Phosphatase 91, Total Protein 6.8, Albumin 4.4, Globulin 2.4, Albumin/Globulin Ratio 1.8, Lipase 138 02/20/24 06:10: Lactate 1.1 Orders (Tests/Meds): ED MEDICATIONS Discontinued Medications Generic Name Dose Route Start Last Admin Trade Name Freq PRN Reason Stop Dose Admin Lactated Ringer's 1,000 mls @ 999 mls/hr 02/20/24 05:25 02/20/24 05:31 Lactated Ringer's 1000 Ml Bag IV 02/20/24 06:25 999 mls/hr .Q1H1M ONE Administration Iopamidol 75 ml 02/20/24 06:25 02/20/24 06:26 Iopamidol-370 (76%);100ml Bottle IV 02/20/24 06:26 75 ml ONCE ONE Administration Ketorolac Tromethamine 30 mg 02/20/24 05:25 02/20/24 05:31 Ketorolac 30mg/Ml Vial IV 02/20/24 05:26 30 mg ONCE ONE Administration Ondansetron HCl 4 mg 02/20/24 05:25 02/20/24 05:31 Ondansetron 4mg/2ml Vial IV 02/20/24 05:26 4 mg ONCE ONE Administration Sodium Chloride 10 ml 02/20/24 06:25 02/20/24 06:26 Sodium Chloride 0.9% 10ml Syr (Rad Only) IV 02/20/24 06:26 10 ml ONCE ONE Administration Tamsulosin HCl 0.4 mg 02/20/24 06:47 02/20/24 06:51 Tamsulosin 0.4mg Capsule PO 02/20/24 06:48 0.4 mg ONCE ONE Administration ORDERS Category Date Time Status CT abdomen pelvis w con Stat Cat Scan 02/20/24 05:21 Completed CBC w/Auto Diff [Complete Blood Count Auto Diff] Stat Lab 02/20/24 05:25 Completed CMP [Comprehensive Metabolic Panel] Stat Lab 02/20/24 05:25 Completed Lactic Acid Stat Lab 02/20/24 06:10 Completed Lipase Stat Lab 02/20/24 05:25 Completed Urinalysis and Microscopic Stat Lab 02/20/24 07:00 Received Medical Decision Narrative: In summary, this 33-year-old male with comorbidities described in HPI presents to the emergency department today with right side abdominal pain with nausea but no vomiting. On initial evaluation patient is hemodynamically stable, afebrile, exam is benign, patient has no abdominal tenderness, no rebound or guarding, no CVA tenderness. He reports he is still having pain in the right side but has no abnormalities appreciated on exam. Differential diagnosis includes but is not limited to viral syndrome, mesenteric adenitis, I considered appendicitis, ureterolithiasis, hydronephrosis, kidney dysfunction, dehydration, electrolyte abnormality, muscle spasm. Based on these concerns, I ordered serum labs, urine studies, CT imaging. Patient received IV fluids, Toradol, Zofran for treatment. Labs personally reviewed demonstrate no leukocytosis or anemia, platelets normal, CMP nonactionable, no findings of kidney dysfunction, lipase normal at 138, lactic normal at 1.1. UA pending CT abdomen pelvis personally interpreted demonstrates very small stone in the mid right ureter with small upstream hydronephrosis on my personal interpretation. Radiology read pending. Based on my interpretation of the CT, I ordered Flomax for treatment of the patient. Patient handed off to Dr. Bradley for continued management and disposition pending urinalysis and CT results. Mirna: I assumed primary responsibility for this patient after signout from previous physician. On my evaluation of patient, in no acute distress playing on his phone. States he is not currently having any pain. Never had flank pain, only having right-sided abdominal pain that is mild in intensity. Well- appearing and unremarkable abdominal exam on my evaluation. Independent interpretation of hematologic workup negative and unremarkable. Patient's urinalysis pending at time of discharge. On independent interpretation of CT imaging, patient has 3 mm stone in distal right ureter with minimal upstream hydroureter. Multiple punctate stones in the left kidney, 1 small punctate stone in right kidney. Patient states that he does have a history of numerous kidney stones and larger stones necessitating lithotripsy, however feels very comfortable going home with what is going on today. I agree with this. I will contact patient with urinalysis results with anything that needs treated, patient not having any dysuria, hematuria, frequency or urgency. No fevers, flank pain, or any systemic signs or symptoms. I asked patient if he wanted Toradol and Flomax, states that he is okay with hydration and ibuprofen at home, I feel this is also appropriate. Because patient at baseline without signs or symptoms of clinical decompensation, deemed appropriate for discharge. Results were relayed to patient who voiced understanding and were agreeable to outpatient management and follow up. I discussed my clinical impression with patient and answered all questions. At this time, the evidence for any other entities in the differential is insufficient to warrant any further testing or ED observation. This was explained as well. Advisory was given that persistent or worsening symptoms require further evaluation. I confirmed the understanding of this discussion. Critical Care <Andrew Helms MD - Last Filed: 02/20/24 06:49> Critical Care Time Critical Care Time: No
[2024-02-20 05:30] VITALS: BP 151/88; PULSE 79; O2SAT 100
[2024-02-20] MEDS: LACTATED RINGERS 1000ML 1,000 ML 999 ML IV (05:31)
[2024-02-20] MEDS: ONDANSETRON 4MG/2ML VIAL 4 MG IV (05:31)
[2024-02-20] MEDS: KETOROLAC 30MG/ML VIAL 30 MG IV (05:31)
[2024-02-20 05:56] LABS: Alanine Aminotransferase 62 U/L (12-78); Albumin Level 4.4 g/dl (3.5-5.0); Albumin/Globulin Ratio 1.8 (1.1-1.8); Alkaline Phosphatase 91 U/L (38-126); Anion Gap 8.9 mEq/L (5-15); Aspartate Amino Transferase 42 U/L (17-59); Bilirubin,Total 0.6 mg/dl (0.2-1.3); Blood Urea Nitrogen 15 mg/dl (9-20); Calcium 9.3 mg/dl (8.4-10.2); Carbon Dioxide 29 mmol/L (22.0-30.0); Chloride 105 mmol/L (98-107); Creatinine Clearance Estimated 135 mL/min (50-200); Estimated Glomerular Filt Rate 77 ml/min (>60); GFR (African American) 93 ML/MIN (>60); Globulin 2.4 g/dL (1.3-3.2); Glucose 117 mg/dl (74-100); Lipase 138 U/L (23-300); Potassium 3.9 mmoL/L (3.5-5.1); Sodium 139 mmol/L (136-145); Total Protein,Serum 6.8 g/dl (6.3-8.2)
[2024-02-20 06:00] VITALS: BP 142/90; PULSE 85; O2SAT 99
[2024-02-20] MEDS: IOPAMIDOL-370 (76%);100ML BOTTLE 75 ML IV (06:26)
[2024-02-20] MEDS: SODIUM CHLORIDE 0.9% 10ML SYR (RAD ONLY) 10 ML IV (06:26)
[2024-02-20 06:30] VITALS: BP 162/86; PULSE 95; O2SAT 100
[2024-02-20 06:31] LABS: Lactic Acid 1.1 mmol/L (0.7-2.1)
[2024-02-20 06:39] LABS: White Blood Count 7.8 K/mm3 (4.8-10.8)
[2024-02-20 06:40] LABS: Hematocrit 47.7 % (42.0-52.0); Lymphocytes % 34.5 % (10-50); Mean Corpuscular HGB Conc 33.5 g/dL (31.8-35.4); Mean Corpuscular Hemoglobin 29.8 pg (27.0-31.2); Mean Corpuscular Volume 88.8 fl (80-94); Mean Platelet Volume 10.5 fl (7.4-10.4); Monocytes % 9.7 % (1.7-9.3); Neutrophils % 50.7 % (37.0-80.0); Platelet Count 189 K/mm3 (142-424); Red Blood Count 5.37 M/mm3 (4.60-6.20); Red Cell Distribution Width 11.9 % (11.5-17.5)
[2024-02-20 06:41] LABS: Basophils # 0.1 K/mm3 (0-0.2); Basophils % 0.6 % (0.1-2.0); Eosinophils # 0.3 K/mm3 (0.0-0.4); Lymphocytes # 2.7 K/mm3 (0.7-4.5); Monocytes # 0.8 K/mm3 (0.1-1.0); Neutrophils # 3.9 K/mm3 (1.8-7.8)
[2024-02-20] MEDS: TAMSULOSIN 0.4MG CAPSULE 0.4 MG PO (06:51)
[2024-02-20 07:06] LABS: Microscopic, Urine URINE MICROSCOPIC (MICROSCOPIC)
[2024-02-20 07:37] VITALS: BP 128/79; PULSE 80; RESP 20; TEMP 36.8; O2SAT 99
[2024-02-20 08:52] LABS: Appearance,Urine CLEAR (Clear); Bilirubin,Urine Negative (Negative); Blood, Urine 2+ (Negative); Color,Urine YELLOW (Yellow); Glucose,Urine (UA) Negative (Negative); Ketones,Urine Negative (Negative); Leukocyte Esterase,Urine Negative (Negative); Nitrate,Urine Negative (Negative); Protein,Urine Negative (Negative); Urobilinogen,Urine 0.2 EU/dl (0.2)
[2024-02-20 10:04] LABS: Bacteria,Urine Trace /lpf; RBC,Urine Occasional #/hpf (0-3); WBC,Urine Occasional #/hpf (0-3)
== END 2024-02-20 07:38 | disposition home or self-care (01) ==
PROVIDERS: Emergency Medicine; Emergency Provider Emergency Medicine
DX: N20.1 Calculus of ureter (principal); R10.9 Unspecified abdominal pain; R11.0 Nausea
CPT/HCPCS: 74177; 80053; 81001; 83605; 83690; 85025; 96361; 96374; 96375; 99285; J1885; J2405; J7120; Q9967

== ENCOUNTER 2024-06-15 13:59 | Emergency (ER) | payer OTHER, SELFPAY ==
[2024-06-15 14:00] VITALS: BP 168/87; PULSE 101; RESP 17; TEMP 36.6; O2SAT 99; BMI 31.1
--- NOTE | 2024-06-15 14:01 | ECG_ITS ---
APPROVED REPORT Exam: Resting ECG HR:103 bpm ECG Measurements Heart Rate 103 AXES MI 146 P 65 QRSd 98 QRS 25 QT 341 T 29 QTc 400 Conclusion SINUS TACHYCARDIA INDETERMINATE AXIS INCOMPLETE RIGHT BUNDLE BRANCH BLOCK [90+ ms QRS DURATION, TERMINAL R IN V1/V2, 40+ ms S IN I/aVL/V4/V5/V6] ABNORMAL RHYTHM ECG Electronically signed by : MICHAEL HUMPHREY, 06/16/2024 22:23:44
--- NOTE | 2024-06-15 14:06 | XR_ITS ---
FINAL REPORT CLINICAL HISTORY: Shortness of breath and chest pain, midsternal cp COMPARISON: 12/01/2023 FINDINGS: A portable view of the chest was obtained. Cardiac and mediastinal silhouettes are within normal limits. The lungs are clear. There is no pleural effusion or pneumothorax. IMPRESSION: No acute process on this portable exam. Reviewed, Interpreted and Dictated by Tierra Figueroa MD Transcribed by Malgorzata Saleh Authenticated and [facility]
--- NOTE | 2024-06-15 14:07 | ED_ITS ---
<Statement entered by Brant Morrow MD - 06/18/24 22:37> I was consulted by the POPPY, and we discussed the complexity of the problems being addressed. I approved the treatment and management plan for this patient's care in the emergency department, thus performing a substantive portion of the medical decision making. Brant Morrow MD, SHIKHA, FACEP Discharge Plan Disposition Patient Disposition: Home, Self-Care Condition: Good Prescriptions Prescriptions: No Action No Known Home Medications Referrals Follow up/Referrals: Provider,Referral, [Primary Care Provider] - See instructions Activity Restrictions/Add. Instructions Additional Instructions/Restrictions: Please return to the emergency department for any worsening signs or symptoms, any worsening chest pain shortness of breath, please follow-up with your family doctor/coverage analyst as an outpatient. Continue take all medication as prescribed. Clinical Impressions Clinical Impression: Atypical chest pain Instructions Patient Instructions: DI for Atypical Chest Pain Print Language Print Language: Citizen Of [place] Discharge ED Provider: Brant Morrow [facility] General Chief Complaint: Chest Pain Stated Complaint: chest pain Time Seen by Provider: 06/15/24 14:01 Mode of Arrival: Ambulatory Source of Information: Patient Limitations: No Limitations Description of Symptoms (Recalled from ER Triage Doc. by RN): pt to the ED with intermitten left sided chest pain since this morning. pt reports its a sharp pain that comes in waves when hes doing no particular activity. pt denies any pain at this time but rated it a 6 without radiation to another location. he seperately reports his apple watch has alerted him of possible afib in the past History of Present Illness HPI narrative: 33-year-old male presents to the emergency department with left substernal chest pain that is nonradiating that has been waxing waning since 7:30 AM this morning, patient denies any fever chills cough congestion sore throat, no shortness of air, nausea no vomiting, no constipation no diarrhea no abdominal pain, no urinary type symptomatology, no melena, no hemoptysis, or hematemesis, patient states that chest pain was a 5 or 6 out of 10 , at maximal currently a 0 out of 10. Patient states that his Apple Watch has reported several episodes of A-fib in the past . Patient denies any exacerbating or alleviating movements or positions, patient is a current everyday smoker, denies any alcohol or other drug use, past medical history consistent with hypertension, not on antihypertensive medication, vitamin B12 deficiency, and previous nephrolithiasis. Initial triage vitals notable for tachycardia otherwise unremarkable. Of note, describes his chest as a sharp aching pain. Related Data Home Medications ?Medication ?Instructions ?Recorded ?Confirmed No Known Home Medications 06/15/24 06/15/24 Allergies Allergy/AdvReac Type Severity Reaction Status Date / Time amoxicillin (AMOXICILLIN) Allergy Unknown Rash Verified 06/15/24 14:17 [facility] Disclaimer: The information contained in this section may have been updated after the patient was seen, as this information can be updated by other users. 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 Otitis media ROM (right otitis media) Acute maxillary sinusitis Abdominal wall strain Allergic rhinitis Sinusitis Strep throat Exposure to COVID-19 virus UTI (urinary tract infection) Candidal dermatitis Witnessed episode of apnea [facility] when patient was coming out from a surgical procedure; had 02 on as well Loud snoring Surgical History History of tonsillectomy Social History Smoking Status: Current every day smoker tobacco type: cigarettes packs per day: 1 alcohol intake: never substance use type: denies use current occupational status: employed Travel in the last 8 weeks: None household members: spouse housing: house 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 current occupational exposures/hazards: No caffeine: Yes Have you lived/traveled outside US in past 30 days?: No Contact w/someone who lives/traveled outside US past 30 days?: No Exposure to someone with infectious disease in past 14 days?: No Do you have a fever (greater than 100.4 F or 38 C)?: No Have you tested positive for COVID-19: No Exposed to someone with COVID-19 in past 14 days?: No Do you have a sore throat?: No Do you have a cough?: No Do you have any weakness?: No Do you have any diarrhea?: No Are you experiencing any unusual bleeding?: No Do you have any muscle aches/pain?: No Do you have any abdominal pain?: No Are you experiencing loss of taste or smell?: No Other 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 Have you received the Flu Vaccine for this season: Yes Have you received the Pneumonia Vaccine: No ROS Obtained: Yes All systems reviewed & no additional complaints except as documented Physical Exam General General appearance: alert and in no apparent distress Head Head exam: atraumatic and normocephalic Eye Eye exam: Present PERRL and EOMI ENT ENT exam: Present mucous membranes moist Neck Neck exam: Present normal inspection Chest Chest inspection: Present normal inspection, symmetric chest wall rise and other (There is no chest wall tenderness to palpation); Absent tenderness Respiratory Respiratory exam: Present normal lung sounds bilaterally; Absent respiratory distress, wheezes or stridor Cardiovascular Cardiovascular exam: Present normal rhythm and tachycardia Abdominal Exam Abdominal exam: Present soft; Absent tenderness, guarding, rebound or rigidity Extremities Exam Extremities exam: Present normal inspection Neurological Exam Neurological exam: Present alert and oriented X3 Psychiatric Psychiatric exam: Present normal affect Skin Skin exam: Present warm and dry HEART Score HEART Score HEART Score assessment performed?: Yes HEART Score: 1 Critical Care Critical Care Time Critical Care Time: No Medical Decision Making Medical Records Medical records reviewed: Yes I reviewed the patient's medical records. Noel Inquiry Pt receiving controlled substance: No Noel was queried for this patient: No Vital Signs Vital Signs: 06/15/24 14:00 06/15/24 14:16 Temperature 97.8 F Temperature Source Oral Pulse Rate 89 Pulse Rate [Left Radial] 101 H Respiratory Rate 17 Blood Pressure [Right Arm] 168/87 H Blood Pressure Mean [Right Arm] 114 Blood Pressure Source [Right Arm] Automatic Cuff Blood Pressure Position [Right Arm] Sitting 02 Sat by Pulse Oximetry 99 Oxygen Delivery Method Room Air Lab Data Lab results reviewed: Yes I reviewed the patient's lab results. Labs: Lab Results 06/15/24 14:10: WBC 9.3, RBC 5.06, Hgb 15.2, Hct 44.5, MCV 87.9, MCH 30.0, MCHC 34.2, RDW 12.2, Plt Count 202, MPV 9.9, Neut % (Auto) 64.6, Lymph % (Auto) 23.4, [place] % (Auto) 9.5 H, Eos % (Auto) 1.8, Baso % (Auto) 0.4, Neut # (Auto) 6.0, Lymph # (Auto) 2.2, [place] # (Auto) 0.9, Eos # (Auto) 0.2, Baso # (Auto) 0.0, D- Dimer 0.65 H, Sodium 139, Potassium 3.7, Chloride 105, Carbon Dioxide 26, Anion Gap 11.7, BUN 10, Creatinine 1.00, Estimated Creat Clear 155, Estimated GFR 86, Est GFR ( Amer) 104, Glucose 100, Calcium 9.4, Total Bilirubin 0.8, AST 42, ALT 55, Alkaline Phosphatase 102, Troponin I < 0.01, NT-Pro-B Natriuret Pep 95.8, Total Protein 7.3, Albumin 4.3, Globulin 3.0, Albumin/Globulin Ratio 1.4, Lipase 83 06/15/24 14:10 06/15/24 14:10 Response Orders (Tests/Meds): ED MEDICATIONS Discontinued Medications Generic Name Dose Route Start Last Admin Trade Name Freq PRN Reason Stop Dose Admin Aspirin 325 mg 06/15/24 14:06 06/15/24 14:14 Aspirin 325mg Tablet PO 06/15/24 14:07 325 mg ONCE ONE Administration ORDERS Category Date Time Status XR chest portable Stat Exams 06/15/24 14:06 Taken Complete Blood Count Auto Diff Stat Lab 06/15/24 14:10 Completed Comprehensive Metabolic Panel Stat Lab 06/15/24 14:10 Completed D-Dimer Stat Lab 06/15/24 14:10 Completed Lipase Stat Lab 06/15/24 14:10 Completed NT Pro Brain Natriuretic Pep. Stat Lab 06/15/24 14:10 Completed Troponin I Q3H Lab 06/15/24 17:15 Ordered Troponin I Q3H Lab 06/15/24 20:15 Ordered Troponin I Stat Lab 06/15/24 14:10 Completed MDM Narrative Medical Decision Narrative: 33-year-old male presents emerged part with chest pain, differential diagnose include but not limited to ACS, cardiac arrhythmia, electrolyte disturbance, pneumonia, costochondritis, pneumothorax, PE, gastritis, GERD, anxiety type reaction, panic attack, among others. I discussed patient's case with attending physician Will obtain basic laboratory studies, D-dimer, troponin proBNP lipase, EKG will give 325 mg p.o. aspirin for pain and obtain chest x-ray. CMP unremarkable CBC unremarkable D-dimer is elevated at 0.65, CMP unremarkable, troponin within normal limits I along the attending physician reviewed the patient's EKG and independently interpreted, radiology report is still pending, there is no pneumothorax, no acute osseous abnormality, no pleural effusion or pneumonia. D-dimer utilizing years criteria, rules out PE, patient's tachycardia has improved, no chest pain currently, no tachypnea, SpO2 within normal limits. I discussed all results with the patient at the bedside, patient agreed with current treatment plan/discharge plan. Patient will follow-up with coverage analyst and PCP, and return to the emergency department any worsening signs or symptoms. Current heart score is a 0-1 due to history of hypertension and smoking history.
[2024-06-15] MEDS: ASPIRIN 325MG TABLET 325 MG PO (14:14)
[2024-06-15 14:16] VITALS: PULSE 89
[2024-06-15 14:19] LABS: Basophils % 0.4 % (0.1-2.0); Eosinophils # 0.2 Kmm3 (0.0-0.4); Eosinophils % 1.8 % (0.1-12.0); Hematocrit 44.5 % (42.0-52.0); Hemoglobin 15.2 g/dL (14.1-18.0); Lymphocytes # 2.2 K/mm3 (0.7-4.5); Lymphocytes % 23.4 % (10-50); Mean Corpuscular HGB Conc 34.2 g/dL (31.8-35.4); Mean Corpuscular Volume 87.9 fl (80-94); Mean Platelet Volume 9.9 fl (7.4-10.4); Monocytes # 0.9 K/mm3 (0.1-1.0); Monocytes % 9.5 % (1.7-9.3); Neutrophils % 64.6 % (37.0-80.0); Nucleated Red Blood Cells # 0 10^3/uL; Nucleated Red Blood Cells % 0 %; Platelet Count 202 K/mm3 (142-424); Red Blood Count 5.06 M/mm3 (4.60-6.20); Red Cell Distribution Width 12.2 % (11.5-17.5); Red Cell Distribution Width-SD 39.5 fL; White Blood Count 9.3 K/mm3 (4.8-10.8)
[2024-06-15 14:32] LABS: Alanine Aminotransferase 55 U/L (12-78); Albumin Level 4.3 g/dl (3.5-5.0); Albumin/Globulin Ratio 1.4 (1.1-1.8); Alkaline Phosphatase 102 U/L (38-126); Anion Gap 11.7 mEq/L (5-15); Aspartate Amino Transferase 42 U/L (17-59); Bilirubin,Total 0.8 mg/dl (0.2-1.3); Blood Urea Nitrogen 10 mg/dl (9-20); Calcium 9.4 mg/dl (8.4-10.2); Carbon Dioxide 26 mmol/L (22.0-30.0); Chloride 105 mmol/L (98-107); Creatinine Clearance Estimated 155 mL/min (50-200); Estimated Glomerular Filt Rate 86 ml/min (>60); GFR (African American) 104 ML/MIN (>60); Glucose 100 mg/dl (74-100); Lipase 83 U/L (23-300); Potassium 3.7 mmoL/L (3.5-5.1); Sodium 139 mmol/L (136-145); Total Protein,Serum 7.3 g/dl (6.3-8.2)
[2024-06-15 14:38] LABS: D-Dimer 0.65 ug/mL (0.0-0.5)
[2024-06-15 14:44] LABS: NT Pro Brain Natriuretic Pep. 95.8 pg/mL (0-125)
[2024-06-15 14:52] LABS: Troponin I < 0.01 ng/ml (0.00-0.034)
[2024-06-15 15:20] VITALS: BP 150/92; PULSE 89; RESP 18; TEMP 36.8; O2SAT 98
== END 2024-06-15 15:20 | disposition home or self-care (01) ==
PROVIDERS: Physician Assistant; Emergency Provider Student in an Organized Health Care Education/Training Program
DX: R07.89 Other chest pain (principal); R00.0 Tachycardia, unspecified
CPT/HCPCS: 71045; 80053; 83690; 83880; 84484; 85025; 85378; 93005; 99285

== ENCOUNTER 2024-06-25 16:47 | Outpatient (CLI) | payer OTHER, SELFPAY ==
[2024-06-25 17:08] LABS: Basophils % 0.4 % (0.1-2.0); Eosinophils # 0.2 Kmm3 (0.0-0.4); Eosinophils % 2.2 % (0.1-12.0); Hematocrit 45.7 % (42.0-52.0); Hemoglobin 15.3 g/dL (14.1-18.0); Lymphocytes # 2.3 K/mm3 (0.7-4.5); Lymphocytes % 26.9 % (10-50); Mean Corpuscular HGB Conc 33.5 g/dL (31.8-35.4); Mean Corpuscular Hemoglobin 29.7 pg (27.0-31.2); Mean Corpuscular Volume 88.6 fl (80-94); Monocytes # 0.8 K/mm3 (0.1-1.0); Monocytes % 9.3 % (1.7-9.3); Neutrophils # 5.2 K/mm3 (1.8-7.8); Nucleated Red Blood Cells # 0 10^3/uL; Nucleated Red Blood Cells % 0 %; Platelet Count 234 K/mm3 (142-424); Red Blood Count 5.16 M/mm3 (4.60-6.20); Red Cell Distribution Width 12.1 % (11.5-17.5); Red Cell Distribution Width-SD 39.3 fL; White Blood Count 8.5 K/mm3 (4.8-10.8)
[2024-06-25 17:57] LABS: Alanine Aminotransferase 60 U/L (12-78); Albumin Level 4.9 g/dl (3.5-5.0); Alkaline Phosphatase 97 U/L (38-126); Anion Gap 5.9 mEq/L (5-15); Aspartate Amino Transferase 37 U/L (17-59); Bilirubin,Direct 0.2 mg/dl (0.0-0.4); Bilirubin,Indirect 0.4 mg/dL (0.0-0.9); Bilirubin,Total 0.6 mg/dl (0.2-1.3); Bilirubin,Unconjugated 0.4 mg/dL (0.0-1.1); Blood Urea Nitrogen 14 mg/dl (9-20); Calcium 9.9 mg/dl (8.4-10.2); Carbon Dioxide 27 mmol/L (22.0-30.0); Chloride 109 mmol/L (98-107); Chol/HDL Ratio 6.1 (1-3.5); Cholesterol 215 mg/dl (140-200); Estimated Glomerular Filt Rate 70 ml/min (>60); GFR (African American) 84 ML/MIN (>60); Glucose 107 mg/dl (74-100); HDL Cholesterol 35 mg/dl (40-60); Magnesium 2.1 mg/dl (1.6-2.3); Potassium 3.9 mmoL/L (3.5-5.1); Sodium 138 mmol/L (136-145); Total Protein,Serum 6.9 g/dl (6.3-8.2); Triglycerides 137 mg/dl (30-150); VLDL Cholesterol 27 mg/dL (0-40)
[2024-06-25 18:07] LABS: Direct LDL Cholesterol 141.29 mg/dL (100-129)
[2024-06-25 18:13] LABS: Free T4 (Free Thyroxine) 0.83 ng/dl (0.78-2.19)
[2024-06-25 18:27] LABS: Thyroid Stimulating Hormone 1.75 uIU/mL (0.465-4.68)
== END 2024-06-25 23:59 | disposition home or self-care (01) ==
LOC: LAB 16:48
PROVIDERS: PCP Nurse Practitioner Family; Visit Provider Nurse Practitioner Family
DX: I47.10 Supraventricular tachycardia, unspecified (principal); R94.31 Abnormal electrocardiogram [ECG] [EKG]; R07.89 Other chest pain; R00.2 Palpitations; I10 Essential (primary) hypertension; R79.89 Other specified abnormal findings of blood chemistry; E03.8 Other specified hypothyroidism; E53.8 Deficiency of other specified B group vitamins; R53.83 Other fatigue; R06.81 Apnea, not elsewhere classified
CPT/HCPCS: 36415; 80048; 80061; 80076; 83735; 84439; 84443; 85025

== ENCOUNTER 2024-07-07 10:38 | Outpatient (CLI) | payer OTHER, SELFPAY ==
--- NOTE | 2024-07-07 11:00 | CA_ITS ---
APPROVED REPORT Exam: Exercise Treadmill Technologist: [place] Ht: 6 ft 0 in Wt: 187 lbs BSA: 2.07 m2 HR: 82 bpm BP: 145/77 mmHg Stress Test Details Test: Exercise stress testing was performed using a Samir protocol. HR Resting HR: 82 bpm Max Heart Rate (APMHR): 187 bpm Max HR Achieved: 129 bpm Target HR (85% APMHR): 159 bpm % of APMHR: 69 Recovery HR: 108 bpm BP Resting BP: 145.0/77.0 mmHg Max BP: 184.0/90.0 mmHg Recovery BP: 142.0/81.0 mmHg ECG Resting ECG: Sinus rhythm Stress ECG Conclusion Symptoms: Fatigue Arrhythmias/Ectopy: PVC PAC ST-T Changes: Less than [address] depression Conclusion: Normal EKG response to exercise. Electronically signed by : Deborah Ann MD 07/08/2024 23:56:23
== END 2024-07-07 23:59 | disposition home or self-care (01) ==
LOC: RT 10:39
PROVIDERS: PCP Nurse Practitioner Family; Visit Provider Nurse Practitioner Family
DX: I49.1 Atrial premature depolarization (principal); I49.3 Ventricular premature depolarization; I47.10 Supraventricular tachycardia, unspecified; E53.8 Deficiency of other specified B group vitamins; R79.89 Other specified abnormal findings of blood chemistry; R06.83 Snoring; R94.31 Abnormal electrocardiogram [ECG] [EKG]; E03.8 Other specified hypothyroidism; I10 Essential (primary) hypertension; R06.81 Apnea, not elsewhere classified
CPT/HCPCS: 93017; 93018

== ENCOUNTER 2024-07-10 13:42 | Outpatient (CLI) | payer OTHER, SELFPAY ==
--- NOTE | 2024-07-10 | CA_ITS ---
APPROVED REPORT EXAM: Comprehensive 2D, Doppler, and color-flow Echocardiogram Visiting Housekeeper: Faith Díaz, NICKIE, RVS Ht: 6 ft 0 in Wt: 231lbs BSA: 2.27 BP: 145/79 mmHg Indications: cp, soa-eleveted d-dimer, GERD, Apnea, R/o PE 2D Dimensions Left Atrium 3.70 cm M: 3.0 - 4.0 M-Mode Dimensions RVDd 2.82 cm (0.9-2.6) LA Diam 3.93 cm (1.9-4.0) LVDd 5.33 cm (3.5-5.7) LVDs 3.72 cm (3.5-5.7) IVSd 0.80 cm (0.6-1.1) PWd 0.91 cm (0.6-1.1) EF (Teich) 57.00% EPSs 0.44 cm FS 30.20% EDV (Teich) 137.10 mL TAPSE 1.98 (<1.7) ESV (Teich) 58.90 mL LV Diastology E Decel Time 190 (160-240 msec) E/A Ratio 1.31 MED A' 9.10 cm/s LAT A' 10.10 cm/s Aortic Valve BRYN Index 0.98 cm2/m2 AoV Peak Sedrick. 128.0 (50-130 cm/s) AO Peak GR. 6.50 mmHg AO Mean GR. 3.30 (<5 mmHg) AO VTI 23.1 (18-25 cm) BRYN (VTI) 2.28 (2.5-4.5 cm2) Mitral Valve MV A Velocity 56.0 (40-130 cm/s) E/A Ratio 1.31 Tricuspid Valve TR P. Velocity 219.00 cm/s RAP Estimate 10.00 mmHg RVSP 29.20 mmHg Left Ventricle The left ventricle is normal size. The left ventricular systolic function is normal. The left ventricular ejection fraction is within the normal range. There is normal left ventricular wall thickness. There is normal LV segmental wall motion. The left ventricular diastolic function is normal. LVEF is 55%. Right Ventricle The right ventricle is normal size. The right ventricular systolic function is normal. Atria The left atrium size is normal. The right atrium size is normal. There is no Doppler evidence of interatrial shunt. Aortic Valve The aortic valve is normal in structure. There is no aortic valvular stenosis. No aortic regurgitation is present. Mitral Valve The mitral valve is normal in structure. No evidence of mitral valve stenosis. There is no mitral valve regurgitation noted. Tricuspid Valve Tricuspid valve is grossly normal in structure and function. Trace tricuspid regurgitation. There is insufficient TR jet to estimate RVSP. Pulmonic Valve The pulmonary valve is normal in structure. Trace pulmonic regurgitation. Great Vessels The aortic root is normal in size. IVC is normal in size and collapses >50% with inspiration. Pericardium There is no pericardial effusion. Other Information Study Quality: Adequate Conclusion Normal biventricular systolic function. No significant valvular stenosis or regurgitation. Electronically signed by : Deborah Ann MD 07/14/2024 11:32:16
--- NOTE | 2024-07-10 14:45 | CT_ITS ---
FINAL REPORT TECHNIQUE: The patient was injected with IV contrast. Axial images were obtained through the chest in a PE protocol. 3-D reconstruction images were also performed. Individualized dose reduction techniques using automated exposure control or adjustment of the MA and/or KV according to patient's size were employed. CLINICAL HISTORY: rule out PE COMPARISON: None FINDINGS: The main pulmonary arteries are well-opacified but the branches are suboptimally opacified limiting sensitivity of the exam. No pulmonary embolism identified. There is no aortic dissection. There is no axillary adenopathy. There is no hilar or mediastinal adenopathy. The heart size is normal. There is no pericardial or pleural effusion. Limited images of the upper abdomen are unremarkable. No evidence of hiatal hernia. No suspicious infiltrate or nodule is identified. IMPRESSION: No evidence of pulmonary embolism on this limited exam. Reviewed, Interpreted and Dictated by Allen Chappell MD Transcribed by Luz Suarez Authenticated and [facility]
[2024-07-10] MEDS: 0.9 % SODIUM CHLORIDE 50 ML VIAL IV (15:01)
[2024-07-10] MEDS: IOPAMIDOL-370 (76%);100ML BOTTLE 75 ML IV (15:01)
[2024-07-10] MEDS: SODIUM CHLORIDE 0.9% 10ML SYR (RAD ONLY) 10 ML IV (15:01)
== END 2024-07-10 23:59 | disposition home or self-care (01) ==
LOC: RT 13:42
PROVIDERS: PCP Nurse Practitioner Family; Visit Provider Nurse Practitioner Family
DX: E03.8 Other specified hypothyroidism (principal); E53.8 Deficiency of other specified B group vitamins; I47.10 Supraventricular tachycardia, unspecified; I10 Essential (primary) hypertension; R06.81 Apnea, not elsewhere classified; R79.89 Other specified abnormal findings of blood chemistry; R06.83 Snoring; R94.31 Abnormal electrocardiogram [ECG] [EKG]; K21.9 Gastro-esophageal reflux disease without esophagitis
CPT/HCPCS: 71275; 93306; Q9967

== ENCOUNTER 2024-07-13 11:45 | Outpatient (CLI) | payer OTHER, SELFPAY ==
[2024-07-13 15:02] LABS: Vitamin B12 364 pg/mL (239-931)
== END 2024-07-13 23:59 | disposition home or self-care (01) ==
LOC: LAB.DROPOF 20:19
PROVIDERS: PCP Nurse Practitioner Family; Visit Provider Nurse Practitioner Family
DX: E53.8 Deficiency of other specified B group vitamins (principal)
CPT/HCPCS: 82607

== ENCOUNTER 2024-07-16 13:20 | Outpatient (CLI) | payer OTHER, SELFPAY ==
--- NOTE | 2024-07-16 13:30 | US_ITS ---
PROCEDURE INFORMATION: Exam: US Left Breast Limited Exam date and time: 07/16/2024 1:28 PM Age: 33 years old Clinical indication: Tenderness x 1 yr; Lt breast lump TECHNIQUE: Imaging protocol: Limited ultrasound of left breast with image documentation, including axilla when performed. Exam focused on the search and evaluation for mass. COMPARISON: No relevant prior studies available. FINDINGS: ULTRASOUND: Breast ultrasound findings: Sonographic images of the left breast including the retroareolar region, all 4 quadrants and the axilla do not demonstrate any solid or cystic masses. No architectural distortion or acoustical shadowing. Sonographic images were also obtained in the right retroareolar region. No significant breast tissues noted in either breast. No skin thickening or axillary adenopathy. IMPRESSION: A skin marker should be placed over the area of palpable concern in the left breast followed by a diagnostic unilateral mammogram with spot compression views for full evaluation of the patient's complaint of a palpable abnormality. ASSESSMENT: BI-RADS Category 0: Incomplete- Need Additional Imaging Evaluation
== END 2024-07-16 23:59 | disposition home or self-care (01) ==
LOC: RAD 13:22
PROVIDERS: PCP Nurse Practitioner Family; Visit Provider Nurse Practitioner Family
DX: N63.20 Unspecified lump in the left breast, unspecified quadrant (principal); N64.4 Mastodynia
CPT/HCPCS: 76642

== ENCOUNTER → 2024-12-03 08:11 | Outpatient (CLI) | payer OTHER, SELFPAY | LOC: SL 08:12 | PROVIDERS: PCP Nurse Practitioner Family; Visit Provider Nurse Practitioner Family | DX: I47.10 Supraventricular tachycardia, unspecified (principal); I10 Essential (primary) hypertension; E53.8 Deficiency of other specified B group vitamins; E03.8 Other specified hypothyroidism; R79.89 Other specified abnormal findings of blood chemistry; R06.83 Snoring; R53.83 Other fatigue; R06.81 Apnea, not elsewhere classified ==

== ENCOUNTER 2025-01-25 07:13 | Emergency (ER) | payer OTHER, SELFPAY ==
--- NOTE | 2025-01-25 07:10 | ECG_ITS ---
APPROVED REPORT Exam: Resting ECG HR:94 bpm ECG Measurements Heart Rate 94 AXES NE 139 P 68 QRSd 95 QRS 33 QT 341 T 26 QTc 392 Conclusion SINUS RHYTHM INDETERMINATE AXIS INCOMPLETE RIGHT BUNDLE BRANCH BLOCK [90+ ms QRS DURATION, TERMINAL R IN V1/V2, 40+ ms S IN I/aVL/V4/V5/V6] BORDERLINE ECG Electronically signed by : MICHAEL HUMPHREY, 01/26/2025 17:25:45
[2025-01-25 07:15] VITALS: BP 137/105; BP 173/105; PULSE 114; RESP 18; TEMP 36.4; O2SAT 99; BMI 30.4
--- NOTE | 2025-01-25 07:15 | XR_ITS ---
FINAL REPORT CLINICAL HISTORY: Nonspecific chest pain COMPARISON: 06/15/2024 FINDINGS: A portable view of the chest was obtained. Cardiac and mediastinal silhouettes are within normal limits. The lungs are clear. There is no pleural effusion or pneumothorax. IMPRESSION: No acute process on this portable exam. Reviewed, Interpreted and Dictated by Tierra Figueroa MD Transcribed by Luz Suarez Authenticated and [facility]
--- NOTE | 2025-01-25 07:18 | HMH.EDCP ---
Discharge Plan Disposition Patient Disposition: Home, Self-Care Condition: Good Prescriptions Prescriptions: No Action No Known Home Medications cefdinir 300 mg capsule 300 mg PO BID 7 Days Qty: 14 0RF Referrals Follow up/Referrals: Nery Sams APRN [Primary Care Provider, Medical] - See instructions Activity Restrictions/Add. Instructions Additional Instructions/Restrictions: Please follow-up with your primary care provider and deaf/hard of hearing specialist. Return to the ER if symptoms presents or worsen. Thank you for allowing us to care for you. Clinical Impressions Clinical Impression: Atypical chest pain Print Language Print Language: Arabic Discharge ED Provider: Hossein Yi JR HPI General Chief Complaint: Chest Pain Stated Complaint: Chest Pain Time Seen by Provider: 01/25/25 07:15 History of Present Illness HPI narrative: 34-year-old male patient with history of TSH deficiency, SVT, GERD, hypertension, history of palpitations and atypical chest pain, anxiety, who has seen cardiology in the past for chest pain, presenting to the emergency department for evaluation of left-sided chest pain, onset yesterday, constant, worse with deep breathing. Patient also endorses shortness of breath. No fever, chills, recent illness, headache, or leg swelling. No further complaints at this time. Currently on trizipidtide for weight loss. No current abdominal pain or epigastric pain. Arrived stable, well-appearing. MD complaint: chest pain Related Data Home Medications ?Medication ?Instructions ?Recorded ?Confirmed No Known Home Medications 12/16/24 12/16/24 Previous Rx's ?Medication ?Instructions ?Recorded cefdinir 300 mg capsule 300 mg PO BID 7 days #14 caps 12/18/24 Allergies Allergy/AdvReac Type Severity Reaction Status Date / Time amoxicillin (AMOXICILLIN) Allergy Unknown Rash Verified 12/16/24 10:56 [facility] Disclaimer: The information contained in this section may have been updated after the patient was seen, as this information can be updated by other users. 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 Acute maxillary sinusitis Elevated d-dimer Snoring Fatigue Abnormal ECG Otitis media ROM (right otitis media) Abdominal wall strain Allergic rhinitis Sinusitis Strep throat Exposure to COVID-19 virus UTI (urinary tract infection) Candidal dermatitis Witnessed episode of apnea [facility] when patient was coming out from a surgical procedure; had 02 on as well Loud snoring Surgical History History of tonsillectomy Social History Smoking Status: Current every day smoker tobacco type: cigarettes packs per day: 1 alcohol intake: never substance use type: denies use current occupational status: employed Travel in the last 8 weeks?: None household members: spouse housing: house 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 current occupational exposures/hazards: No caffeine: Yes Other 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 Have you received the Flu Vaccine for this season: Yes Have you received the Pneumonia Vaccine: No ROS Obtained: Yes All systems reviewed & no additional complaints except as documented Constitutional Constitutional: Reports system reviewed and no additional complaints, except as documented and Reports as per HPI Eyes Eyes: Reports system reviewed and no additional complaints, except as documented and Reports as per HPI ENT Ears, Nose, Mouth, and Throat: Reports system reviewed and no additional complaints, except as documented and Reports as per HPI Cardiovascular Cardiovascular: Reports chest pain Respiratory Respiratory: Reports shortness of breath Gastrointestinal Gastrointestingal: Reports system reviewed and no additional complaints, except as documented and as per HPI; Denies abdominal pain Genitourinary Male Genitourinary: Reports system reviewed and no additional complaints, except as documented and Reports as per HPI Musculoskeletal Musculoskeletal: Reports system reviewed and no additional complaints, except as documented and Reports as per HPI Physical Exam General General appearance: alert, in no apparent distress and anxious Head Head exam: atraumatic and normocephalic Eye Eye exam: Present normal appearance ENT ENT exam: Present normal exam Neck Neck exam: Present normal inspection Chest Chest inspection: Absent tenderness Respiratory Respiratory exam: Present normal lung sounds bilaterally; Absent respiratory distress Cardiovascular Cardiovascular exam: Present regular rate, normal rhythm and tachycardia Abdominal Exam Abdominal exam: Present soft; Absent distention or tenderness Extremities Exam Extremities exam: Present normal inspection and full ROM Back Exam Back exam: Present normal inspection and full ROM Neurological Exam Neurological exam: Present alert and oriented X3 Skin Skin exam: Present warm and dry HEART Score HEART Score HEART Score assessment performed?: Yes History (anamnesis): Slightly suspicious ECG: Normal Age: <45 years Risk factors: 1-2 risk factors Troponin: </= normal limit HEART Score: 1 Critical Care Critical Care Time Critical Care Time: No Medical Decision Making Noel Inquiry Pt receiving controlled substance: No Vital Signs Vital Signs: 01/25/25 07:15 01/25/25 07:15 01/25/25 07:31 Temperature 97.6 F 97.6 F Temperature Source Oral Oral Pulse Rate 114 H 85 Pulse Rate [Right] 114 H Respiratory Rate 18 18 Blood Pressure 173/105 H 117/75 Blood Pressure [Right Arm] 137/105 H Blood Pressure Mean 89 Blood Pressure Mean [Right Arm] 115 Blood Pressure Source Automatic Cuff Blood Pressure Source [Right Arm] Automatic Cuff Blood Pressure Position Supine Blood Pressure Position [Right Arm] Supine 02 Sat by Pulse Oximetry 99 99 99 Oxygen Delivery Method Room Air Room Air 01/25/25 08:00 01/25/25 08:00 01/25/25 08:31 Temperature Temperature Source Pulse Rate 76 80 74 Pulse Rate [Right] Respiratory Rate 15 14 Blood Pressure 123/72 135/78 Blood Pressure [Right Arm] Blood Pressure Mean 91 90 Blood Pressure Mean [Right Arm] Blood Pressure Source Blood Pressure Source [Right Arm] Blood Pressure Position Blood Pressure Position [Right Arm] 02 Sat by Pulse Oximetry 95 98 Oxygen Delivery Method 01/25/25 09:01 Temperature Temperature Source Pulse Rate 71 Pulse Rate [Right] Respiratory Rate 16 Blood Pressure 139/67 Blood Pressure [Right Arm] Blood Pressure Mean 91 Blood Pressure Mean [Right Arm] Blood Pressure Source Blood Pressure Source [Right Arm] Blood Pressure Position Blood Pressure Position [Right Arm] 02 Sat by Pulse Oximetry 98 Oxygen Delivery Method Lab Data Labs: Lab Results 01/25/25 07:15: WBC 7.2, RBC 5.62, Hgb 17.2, Hct 50.0, MCV 89.0, MCH 30.6, MCHC 34.4, RDW 12.2, Plt Count 198, MPV 10.4, Neut % (Auto) 55.8, Lymph % (Auto) 32.5, Todd % (Auto) 9.7 H, Eos % (Auto) 1.3, Baso % (Auto) 0.4, Neut # (Auto) 4.0, Lymph # (Auto) 2.3, Todd # (Auto) 0.7, Eos # (Auto) 0.1, Baso # (Auto) 0.0, D-Dimer 0.59 H, Sodium 142, Potassium 3.7, Chloride 101, Carbon Dioxide 27, Anion Gap 17.7 H, BUN 8 L, Creatinine 1.20, Estimated Creat Clear 111, Estimated GFR 69, Est GFR ( Amer) 84, Glucose 103 H, Lactate 1.3, Calcium 9.6, Total Bilirubin 1.2, AST 38, ALT 45, Alkaline Phosphatase 85, Troponin I < 0.01, Total Protein 8.0, Albumin 5.0, Globulin 3.0, Albumin/Globulin Ratio 1.7 01/25/25 07:25: TSH 1.71, Free T4 1.61, HCV Ab KATINA w/Rflx PCR Qn Negative, HIV Ag/Ab Combo Qual Negative 01/25/25 07:15 01/25/25 07:15 Response Orders (Tests/Meds): ED MEDICATIONS Discontinued Medications Generic Name Dose Route Start Last Admin Trade Name Darellq PRN Reason Stop Dose Admin Aspirin 325 mg 01/25/25 07:15 01/25/25 08:06 Aspirin 325mg Tablet PO 01/25/25 07:16 325 mg ONCE ONE Administration Lactated Ringer's 1,000 mls @ 999 mls/hr 01/25/25 08:00 01/25/25 09:13 Lactated Ringer's 1000 Ml Bag IV 01/25/25 09:00 Infused .Q1H1M ONE Infusion Morphine Sulfate 4 mg 01/25/25 07:29 01/25/25 08:07 Morphine 4mg/Ml Syringe IV 01/25/25 07:30 4 mg ONCE ONE Administration Ondansetron HCl 4 mg 01/25/25 07:15 01/25/25 08:07 Ondansetron 4mg/2ml Vial IV 01/25/25 07:16 4 mg ONCE ONE Administration ORDERS Category Date Time Status XR chest portable Stat Exams 01/25/25 07:15 Completed Complete Blood Count Auto Diff Stat Lab 01/25/25 07:15 Completed Comprehensive Metabolic Panel Stat Lab 01/25/25 07:15 Completed D-Dimer Stat Lab 01/25/25 07:15 Completed Free T4 (Free Thyroxine) Stat Lab 01/25/25 07:25 Completed HIV Combo Stat Lab 01/25/25 07:25 Completed Hepatitis C Ab Qual. W/ RFX Stat Lab 01/25/25 07:25 Completed Lactic Acid Stat Lab 01/25/25 07:15 Completed Thyroid Stimulating Hormone Stat Lab 01/25/25 07:25 Completed Troponin I Q3H Lab 01/25/25 10:30 Ordered Troponin I Q3H Lab 01/25/25 13:30 Ordered Troponin I Stat Lab 01/25/25 07:15 Completed MDM Narrative Medical Decision Narrative: 34-year-old male presenting with chest pain. Also complains of shortness of breath. EKG reviewed and independently interpreted, significant for normal sinus rhythm, no ST elevation, no STEMI. Upon further reevaluation, patient became tachycardic, complaining of shortness of breath. We will order D-dimer. Cannot PERC patient out. Bedside ultrasound performed. No abnormalities. No wall motion abnormalities. No effusion. No RV dilation. Labs are unremarkable. Troponin within normal limits. CBC unremarkable. Slight anion gap. Will give IV fluids. Chest x-ray reviewed and independently interpreted, significant for no acute abnormalities. Please see radiology report for further details. Upon reevaluation, patient reports symptomatic improvement. No current chest pain. Resting comfortably. Vital signs stable. D-dimer slightly elevated, 0.59. With years criteria, PE is excluded. PE excluded YEARS algorithm rules out PE (0.43% with symptomatic VTE during 3-month follow-up) Heart score of 1. Etiology likely anxiety as patient has been feeling anxious about life recently. No current chest pain. Heart score of 1. Troponin normal. No concern for ACS at this time. PE excluded by years criteria. Bedside ultrasound normal. Chest x-ray and EKG normal. Patient has follow-up with his primary care provider today. I also instructed the patient to see his deaf/hard of hearing specialist. Return precaution given. All questions answered. Is afebrile, hemodynamically stable, overall well-appearing upon reevaluation. No current chest pain or shortness breath.
[2025-01-25 07:27] LABS: Hematocrit 50.0 % (42.0-52.0); Hemoglobin 17.2 g/dL (14.1-18.0); Immature Granulocytes % 0.3 %; Mean Corpuscular HGB Conc 34.4 g/dL (31.8-35.4); Mean Corpuscular Hemoglobin 30.6 pg (27.0-31.2); Mean Corpuscular Volume 89.0 fl (80-94); Nucleated Red Blood Cells % 0 %; Platelet Count 198 K/mm3 (142-424); Red Blood Count 5.62 M/mm3 (4.60-6.20); Red Cell Distribution Width-SD 39.9 fL; White Blood Count 7.2 K/mm3 (4.8-10.8)
[2025-01-25 07:31] VITALS: BP 117/75; PULSE 85; O2SAT 99
[2025-01-25 07:36] LABS: Chloride 101 mmol/L (98-107)
[2025-01-25 07:37] LABS: Albumin Level 5.0 g/dl (3.5-5.0); Potassium 3.7 mmoL/L (3.5-5.1); Sodium 142 mmol/L (136-145)
[2025-01-25 07:39] LABS: Alanine Aminotransferase 45 U/L (12-78); Aspartate Amino Transferase 38 U/L (17-59); Blood Urea Nitrogen 8 mg/dl (9-20); Carbon Dioxide 27 mmol/L (22.0-30.0); Creatinine Clearance Estimated 111 mL/min (50-200); Creatinine,Serum 1.20 mg/dl (0.66-1.25); Estimated Glomerular Filt Rate 69 ml/min (>60); GFR (African American) 84 ML/MIN (>60)
[2025-01-25 07:40] LABS: Albumin/Globulin Ratio 1.7 (1.1-1.8); Alkaline Phosphatase 85 U/L (38-126); Anion Gap 17.7 mEq/L (5-15); Bilirubin,Total 1.2 mg/dl (0.2-1.3); Calcium 9.6 mg/dl (8.4-10.2); Globulin 3.0 g/dL (1.3-3.2); Glucose 103 mg/dl (74-100); Total Protein,Serum 8.0 g/dl (6.3-8.2)
--- OUTSIDE RECORDS SUMMARY | 2025-01-25 07:46 | XMS_ITS | Clinical Summary ---
Author Organization [facility] [place] [facility] Address [address] [place] [address] Phone Care Team Providers Care Manager Systems Name Role Phone No Pcp, Provider Not In [facility] er Unavailable Allergies Active Allergy Reactions Criticality Noted Date Comments Amoxicillin 09/23/2011 Medications tamsulosin (FLOMAX) 0.4 mg Oral CapsuleIndicati ons:Kidney stone,Left ureteral stone Take 1 Capsule by mouth nightly. 30 Capsule 04/12/2023 Active traMADoL (ULTRAM) 50 mg Oral Tablet Take 1-2 Tablets by mouth every 6 hours as needed for Pain. 30 Tablet 04/22/2023 Active Active Problems Problem Noted Date Diagnosed Date Ureterolithiasis 04/15/2023 Ureteral stone 04/15/2023 Abdominal wall strain 04/12/2023 Allergic rhinitis 04/12/2023 Atypical chest pain 04/12/2023 Exposure to COVID-19 virus 04/12/2023 Hydronephrosis due to obstruction of ureter 03/28 Obstructive uropathy 04/12/2023 Sinusitis 04/12/2023 Strep throat 04/12/2023 Ureteral colic 04/12/2023 Kidney stone 04/22/2020 UTI (urinary tract infection) 04/22/2020 Obesity (BMI 30.0-34.9) 04/22/2020 Left ureteral stone Renal colic on left side Immunizations Immunization Administration Dates Next Due Tdap 09/23/2011 Surgical History Surgery Date Site/Laterality Comments TONSILLECTOMY CYSTOSCOPY 04/27/2020 Left CYSTOSCOPY LEFT STENT INSERTION LEFT URETERAL DILATION ; Surgeon: Sienna Greer MD; Location: [facility] MAIN OR; Service: Urology Medical devices from this surgery are in the Medical Devices section. LITHOTRIPSY 05/03/2020 Left left extracorporeal shock wave lithotripsy, CYSTOSCOPY LEFT STENT REMOVAL; Surgeon: Sienna Greer MD; Location: [facility] OR; Service: Urology Medical devices from this surgery are in the Medical Devices section. CYSTOSCOPY 05/03/2020 Left Surgeon: Sienna Greer MD; Location: [facility] OR; Service: Urology Medical devices from this surgery are in the Medical Devices section. CYSTOSCOPY 04/15/2023 Left CYSTOSCOPY STENT INSERTION LEFT; Surgeon: Stefanie Luna MD; Location: [facility] OR; Service: Urology Medical devices from this surgery are in the Medical Devices section. LITHOTRIPSY 04/22/2023 Left LEFT EXTRACORPOREAL SHOCK WAVE THERAPY LITHOTRIPSY WITH LEFT STENT REMOVAL; Surgeon: Eddie Pierson MD; Location: [facility] MAIN OR; Service: Urology Medical devices from this surgery are in the Medical Devices section. 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 Date Comments Kidney stone 04/22/2020 Family History 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 Relation Name Comments Anesth Problems Neg Hx Social History Tobacco Use Types Packs/Day Years Used Date Smoking Tobacco: Every Day Cigarettes 1 18.8 Started: 04/22/2006 Smokeless Tobacco: Never Tobacco Cessation:Ready to Q uit: No Alcohol Use Standard Drinks/Week Comments Never 0 (1 standard drink = 0.6 oz pur e alcohol) occ AUDIT-C Answer Date Recorded Q1: How often do you have a drink containing alc ohol? Never 05/03/2020 Average Number of Drinks Not on file 021 Frequency of Binge Drinking Not on file 10/2020 PHQ-2 Answer Date Recorded PHQ-2 Total Score 0 09/30/2024 Sex and Gender Information Value Date Recorded Sex Assigned at Not on file Legal Sex Male 11:11 PM EDT Gender Identity Not on file Sexual Orientation Not on file Last Filed Vital Signs Vital Sign Reading Time Taken Comments Blood Pressure 155/83 04/22/2023 4:14 PM EST Pulse 66 04/22/2023 4:14 PM EST Temperature 36.2 C (97.2 F) 04/22/2023 4:00 PM EST Respiratory Rate 20 04/22/2023 4:14 PM EST Oxygen Saturation 98% 04/22/2023 4:14 PM EST Inhaled Oxygen Concentration - - Weight 101.2 kg (223 lb) 04/22/2023 12:28 PM EST Height 172.7 cm (5' 8 ) 04/16/2023 12:25 PM EST Body Mass Index 33.91 04/16/2023 12:25 PM EST Plan of Treatment Health Maintenance Due Date Last Done Comments Annual Wellness Exam 1993 Hepatitis B Vaccine (1 of 3 - 19+ 3-dose series) 2009 Pneumococcal Vaccine 0-49 (1 of 2 - PCV) 2009 DTaP/TDaP/Td (2 - Td or Tdap) 2021 09/23/2011 COVID-19 Vaccine ( - season) 2024 08/04/2020, 07/02/2020 Influenza Vaccine (#1) 2024 , 11/26/2019, 12/18/2018, Additional history exists Meningococcal B Vaccine Aged Out No l onger eligible based on patient's age to complete this topic Goals Goal Patient Goal Type Associated Problems Recent Progress Patient-Stated? Author Maintain a healthy diet, exercise regularly and maintain an ideal body weight General No Kaleva, Peg, DIRECTOR OF PSYCHIATRY Stay Tobacco Free Lifestyle No Oskar, Peg, DIRECTOR OF PSYCHIATRY Medical Devices Explanted Type Area Commercial Cleaner Device Identifier Shelf Expiration Date Model / Serial / Lot Stent Uret [id number] Contr Dbl Pig Tapr Lpro Percuflx Cath - [id number] Implanted:Qty : 1 on 04/27/2020 by Sienna Greer MD at [facility] Explanted:Qty : 1 on 05/03/2020 by Sienna Greer MD at [facility] Stent Left: Ureter [place] SCI:MICROVASIVE: UROLOGY [id number] 12/20/2022 [id number] 30 / / [id number] Stent Uret [id number] Contr Dbl Pig Tapr Lpro Percuflx Cath - [id number] Implanted:Qty : 1 on 04/15/2023 by Stefanie Luna MD at [facility] Explanted:Qty : 1 on 04/22/2023 at [facility] SCI:MICROVASIVE: UROLOGY [id number] 09/04/2025 [id number] 40 / / [id number] Insurance Advance Directives For more information, please contact: [phone] * Full Code (Latest Code Status on File) Date Activated Date Inactivated Comments 04/27/2020 12:19 PM 04/28/2020 1:20 AM * Full Code Date Activated Date Inactivated Comments 04/27/2020 10:43 AM 04/27/2020 12:19 PM * Full Code Date Activated Date Inactivated Comments 04/22/2020 10:21 PM 04/23/2020 9:22 PM Care Teams Manager Systems Relationship Specialty Start Date End Date No Pcp, Provider Not In Epic PCP - General 04/22/23
[2025-01-25 07:56] LABS: Troponin I < 0.01 ng/ml (0.00-0.034)
[2025-01-25 08:00] VITALS: BP 123/72; PULSE 76; PULSE 80; RESP 15; O2SAT 95
[2025-01-25] MEDS: LACTATED RINGERS 1000ML 1,000 ML 999 ML IV (08:05)
[2025-01-25] MEDS: ASPIRIN 325MG TABLET 325 MG PO (08:06)
[2025-01-25] MEDS: ONDANSETRON 4MG/2ML VIAL 4 MG IV (08:07)
[2025-01-25] MEDS: MORPHINE 4MG/ML SYRINGE 4 MG IV (08:07)
[2025-01-25 08:16] LABS: Free T4 (Free Thyroxine) 1.61 ng/dl (0.78-2.19)
[2025-01-25 08:31] VITALS: BP 135/78; PULSE 74; RESP 14; O2SAT 98
[2025-01-25 08:31] LABS: Thyroid Stimulating Hormone 1.71 uIU/mL (0.465-4.68)
[2025-01-25 08:48] LABS: Hepatitis C Ab Qual. W/ RFX NEGATIVE (Negative)
[2025-01-25 09:00] LABS: D-Dimer 0.59 ug/mL (0.0-0.5)
[2025-01-25 09:01] VITALS: BP 139/67; PULSE 71; RESP 16; O2SAT 98
--- NOTE | 2025-01-25 09:09 | PC.NURSE ---
I called lab to inquire about the pts ddimer. she is releasing it now.
[2025-01-25 09:41] VITALS: BP 121/73; PULSE 70; RESP 16; TEMP 36.6; O2SAT 98
== END 2025-01-25 09:47 | disposition home or self-care (01) ==
PROVIDERS: Emergency Provider Student in an Organized Health Care Education/Training Program; PCP Nurse Practitioner Family
DX: R07.89 Other chest pain (principal); R00.0 Tachycardia, unspecified; R06.02 Shortness of breath; F17.210 Nicotine dependence, cigarettes, uncomplicated; F41.9 Anxiety disorder, unspecified
CPT/HCPCS: 71045; 80053; 83605; 84439; 84443; 84484; 85025; 85378; 86803; 87389; 93005; 96361; 96374; 96375; 99285; J2270; J2405; J7120